=== PATIENT | female | born 1965 | race Caucasian/White ===

== ENCOUNTER 2016-08-18 08:00 | Outpatient (CLI) | payer MEDICAID | END 2016-08-18 23:59 | disposition home or self-care (01) | DX: M19.90 Unspecified osteoarthritis, unspecified site (principal) ==

== ENCOUNTER 2016-10-04 11:16 | Outpatient (CLI) | payer MEDICAID | END 2016-10-04 11:17 | disposition home or self-care (01) | DX: K76.0 Fatty (change of) liver, not elsewhere classified (principal); Z90.49 Acquired absence of other specified parts of digestive tract ==

== ENCOUNTER 2016-12-27 11:28 | Outpatient (CLI) | payer MEDICAID ==
[2016-12-27 18:43] LABS: BASOPHILS % (AUTO) 0.3 %; EOSINOPHILS # (AUTO) 0.1 10^3/uL (0.0-0.7); EOSINOPHILS % (AUTO) 1.8 %; HCT - HEMATOCRIT 40.8 % (37.0-47.0); HGB - HEMOGLOBIN 13.9 g/dL (12.0-16.0); LYMPHOCYTES # (AUTO) 3.4 10^3/uL (1.5-3.5); LYMPHOCYTES % (AUTO) 47.6 %; MEAN CORPUSCULAR HEMOGLOBIN 31.9 pg (27.0-31.0); MEAN CORPUSCULAR HGB CONC 34.2 g/dL (32.0-36.0); MEAN CORPUSCULAR VOLUME 93.2 fL (81.0-99.0); MEAN PLATELET VOLUME 8.4 fL (7.9-10.8); MONOCYTES # (AUTO) 0.5 10^3/uL (0.0-1.0); MONOCYTES % (AUTO) 7.4 %; NEUTROPHILS # (AUTO) 3.1 10^3/uL (1.5-6.6); NEUTROPHILS % (AUTO) 42.9 %; NUCLEATED RED BLOOD CELLS AUTO 0.1 /100WBC; RED BLOOD COUNT 4.37 10^6/uL (4.20-5.40); RED CELL DISTRIBUTION WIDTH 13.3 % (12.0-15.0); UNCORRECTED WHITE BLOOD COUNT 7.2 x10^3/uL; WHITE BLOOD COUNT 7.2 x10^3/uL (4.8-10.8)
[2016-12-27 19:14] LABS: ALBUMIN/GLOBULIN RATIO 1.2 (1.0-2.2); BILIRUBIN,TOTAL 0.4 mg/dL (0.2-1.0); CALCIUM 9.1 mg/dL (8.5-10.3); CREATININE 0.7 mg/dL (0.4-1.0); TOTAL PROTEIN 7.3 g/dL (6.7-8.2)
== END 2016-12-27 11:29 | disposition home or self-care (01) ==
LOC: RT.S 11:28
PROVIDERS: ATTEND Nurse Practitioner Family
DX: M16.11 Unilateral primary osteoarthritis, right hip (principal)
CPT/HCPCS: 36415; 80053; 85025; 87640; 93005

== ENCOUNTER 2017-01-10 05:53 | Inpatient (IN) | payer MEDICAID ==
[2017-01-10] MEDS ORDERED: ceFAZolin 2 GM/50 ML 50 ML IV ONE (06:27)
[2017-01-10] MEDS ORDERED: LACTATED RINGERS 1,000 ML IV ONE ×2 (06:57→12:15)
[2017-01-10] MEDS ORDERED: PROPOFOL 200 MG/20 ML VIAL IVP ONE (08:30)
[2017-01-10] MEDS ORDERED: fentaNYL 100 MCG/2 ML VIAL IVP ONE (08:30)
[2017-01-10] MEDS ORDERED: MORPHINE PF 5 MG/10 ML AMP EP ONE (08:30)
[2017-01-10] MEDS ORDERED: TRANEXAMIC ACID 1,000 MG/10 ML VIAL IV ONE (08:30)
[2017-01-10] MEDS ORDERED: ePHEDrine 50 MG/ML AMP IVP ONE (08:30)
[2017-01-10] MEDS ORDERED: MIDAZOLAM 2 MG/2 ML VIAL IVP ONE (08:30)
[2017-01-10] MEDS ORDERED: LIDOCAINE-MPF 2% 5 ML VIAL IM ONE (08:30)
[2017-01-10] MEDS ORDERED: KETOROLAC 15 MG/ML VIAL IM ONE (08:55)
[2017-01-10] MEDS ORDERED: ROPIVACAINE 0.2% PF 20 ML AMPULE SUBQ ONE (08:55)
[2017-01-10] MEDS ORDERED: EPINEPHrine 1 MG/ML AMP SUBQ ONE (08:56)
[2017-01-10] MEDS ORDERED: MORPHINE PF 5 MG/10 ML AMP SUBQ ONE (08:56)
[2017-01-10] MEDS ORDERED: BUPIVACAINE 0.25%-EPI 1:200000 PF 30 ML VIAL SUBQ ONE ×2 (08:57)
[2017-01-10] MEDS ORDERED: ACETAMINOPHEN 1,000 MG/100 ML 100 ML IV PRN (12:15)
[2017-01-10] MEDS ORDERED: BISACODYL 10 MG SUPP PR PRN (12:15)
[2017-01-10] MEDS ORDERED: diphenhydrAMINE 25 MG CAPSULE PO PRN (12:15)
[2017-01-10] MEDS ORDERED: diphenhydrAMINE INJ 50 MG/ML VIAL IVP PRN (12:15)
[2017-01-10] MEDS ORDERED: BISACODYL 5 MG TABLET PO PRN (12:15)
[2017-01-10] MEDS ORDERED: ACETAMINOPHEN 325 MG TABLET PO PRN (12:15)
[2017-01-10] MEDS ORDERED: PROCHLORPERAZINE 10 MG/2 ML VIAL IVP PRN (12:15)
[2017-01-10] MEDS ORDERED: DOCUSATE SODIUM 100 MG CAPSULE PO PRN (12:15)
[2017-01-10] MEDS ORDERED: ONDANSETRON 4 MG/2 ML VIAL IVP PRN (12:15)
[2017-01-10] MEDS ORDERED: ceFAZolin 2 GM/50 ML 50 ML IV SCH (12:15)
[2017-01-10] MEDS ORDERED: SENNA 8.6 MG TABLET PO PRN (12:15)
[2017-01-10] MEDS ORDERED: FORMOTEROL FUMARATE NEB 20 MCG/2 ML INH PRN (12:22)
[2017-01-10] MEDS ORDERED: ALBUTEROL 8 GM INHALER INH PRN (12:22)
--- NOTE | 2017-01-10 12:31 | OPERATIVE REPORT ---
Operative Report - General Admit Date: 01/10/17 Procedure Date: 01/10/17 Planned Procedure: Right Total Hip Arthroplasty Pre-Op Diagnosis: Right Hip Osteoarthritis Post Op Diagnosis: Same - Procedure Note Primary Surgeon: Dmitry Odell MD Anesthesia Provider: Jaime Mendosa CRNA Anesthesia Technique: Local, Moderate sedation, Spinal Pathology: Same Estimated Blood Loss (in cc): 300 Complications: None. - Other Other Information/Narrative: Fluids: 1600 mL LR Urine: 300 mL. Implants: Yordy TaperLoc Femoral Stem: 12 x 142 mm porous standard offset. Acetabular Cup: 54 mm OD, porous Acetabular Liner UHMWPE 40 mm ID Screws: 4.5 x 25 mm & 4.5 x 20 mm Ceramic Head: 40 mm x -3 mm neck length with Cameron taper collar. Condition: Stable. [facility]
[2017-01-10] MEDS ORDERED: fentaNYL 100 MCG/2 ML VIAL ONE (12:49)
[2017-01-10] MEDS ORDERED: ALBUTEROL NEB 2.5 MG/3 ML INH PRN ×2 (13:32→15:47)
--- NOTE | 2017-01-10 14:09 | XRAY Report ---
TWO VIEW RIGHT HIP: 01/10/2017 CLINICAL INDICATION: Postop. FINDINGS: Frontal and cross-table lateral views of the right hip demonstrate a right hip replacement in place. Subcutaneous gas is seen. There is no evidence of acute fracture or hardware complication. IMPRESSION: EXPECTED POSTOPERATIVE APPEARANCE OF RIGHT HIP REPLACEMENT. JOB #: [id number] EXT JOB #:[id number]
[2017-01-10] MEDS: SODIUM CHLORIDE FLUSH 0.9% 10 ML SYRINGE IVP SCH ×2 (14:20→20:00)
[2017-01-10] MEDS: SODIUM CHLORIDE 0.9% 1,000 ML IV SCH (14:26)
[2017-01-10] MEDS: ceFAZolin 2 GM/50 ML 50 ML IV SCH ×2 (16:31→23:58)
[2017-01-10] MEDS: oxyCOD/ACETAMIN 5 MG/325 MG TABLET PO PRN (16:31)
[2017-01-10] MEDS: KETOROLAC 30 MG/ML VIAL IVP PRN (20:11)
[2017-01-10] MEDS: SODIUM CHLORIDE FLUSH 0.9% 10 ML SYRINGE IVP PRN (20:11)
[2017-01-11] MEDS: SODIUM CHLORIDE 0.9% 1,000 ML IV SCH ×3 (00:10→17:45)
[2017-01-11] MEDS: oxyCOD/ACETAMIN 5 MG/325 MG TABLET PO PRN ×4 (04:20→16:52)
[2017-01-11] MEDS: KETOROLAC 30 MG/ML VIAL IVP PRN ×3 (05:28→18:31)
[2017-01-11] MEDS: SODIUM CHLORIDE FLUSH 0.9% 10 ML SYRINGE IVP SCH ×3 (05:34→20:41)
[2017-01-11] MEDS: PANTOPRAZOLE 40 MG TABLET PO SCH (06:07)
[2017-01-11] MEDS: ENOXAPARIN 40 MG/0.4 ML SYRINGE SUBQ SCH (08:24)
[2017-01-11] MEDS: CETIRIZINE 10 MG TABLET PO SCH (08:24)
[2017-01-11] MEDS: GABAPENTIN 300 MG CAPSULE PO SCH (08:24)
[2017-01-11] MEDS ORDERED: QUEtiapine 100 MG TABLET PO SCH (09:00)
[2017-01-11 12:31] LABS: BASOPHILS # (AUTO) 0.1 10^3/uL (0.0-0.1); BASOPHILS % (AUTO) 0.5 %; EOSINOPHILS % (AUTO) 0.4 %; HCT - HEMATOCRIT 31.4 % (37.0-47.0); HGB - HEMOGLOBIN 10.9 g/dL (12.0-16.0); LYMPHOCYTES # (AUTO) 2.3 10^3/uL (1.5-3.5); LYMPHOCYTES % (AUTO) 21.7 %; MEAN CORPUSCULAR HEMOGLOBIN 31.5 pg (27.0-31.0); MEAN CORPUSCULAR HGB CONC 34.7 g/dL (32.0-36.0); MEAN CORPUSCULAR VOLUME 90.6 fL (81.0-99.0); MEAN PLATELET VOLUME 7.6 fL (7.9-10.8); MONOCYTES # (AUTO) 0.8 10^3/uL (0.0-1.0); MONOCYTES % (AUTO) 7.1 %; NEUTROPHILS # (AUTO) 7.5 10^3/uL (1.5-6.6); NEUTROPHILS % (AUTO) 70.3 %; RED BLOOD COUNT 3.46 10^6/uL (4.20-5.40); UNCORRECTED WHITE BLOOD COUNT 10.7 x10^3/uL; WHITE BLOOD COUNT 10.7 x10^3/uL (4.8-10.8)
[2017-01-11] MEDS: HYDROmorphone 1 MG/ML SYRINGE IVP PRN ×2 (18:31→20:40)
[2017-01-11] MEDS ORDERED: oxyCOD/ACETAMIN 5 MG/325 MG TABLET PO SCH ×2 (20:00→21:05)
[2017-01-11] MEDS: QUEtiapine 100 MG TABLET PO SCH (21:00)
[2017-01-12] MEDS: KETOROLAC 30 MG/ML VIAL IVP PRN ×4 (00:39→21:44)
[2017-01-12] MEDS: SODIUM CHLORIDE FLUSH 0.9% 10 ML SYRINGE IVP PRN ×2 (00:40→07:00)
[2017-01-12] MEDS: HYDROmorphone 1 MG/ML SYRINGE IVP PRN (05:20)
[2017-01-12] MEDS: SODIUM CHLORIDE 0.9% 1,000 ML IV SCH ×2 (05:21→13:36)
[2017-01-12] MEDS: SODIUM CHLORIDE FLUSH 0.9% 10 ML SYRINGE IVP SCH ×3 (05:21→20:19)
[2017-01-12] MEDS: PANTOPRAZOLE 40 MG TABLET PO SCH (07:04)
[2017-01-12] MEDS: CETIRIZINE 10 MG TABLET PO SCH (08:57)
[2017-01-12] MEDS: GABAPENTIN 300 MG CAPSULE PO SCH (08:57)
[2017-01-12] MEDS: ENOXAPARIN 40 MG/0.4 ML SYRINGE SUBQ SCH (08:57)
[2017-01-12] MEDS: oxyCOD/ACETAMIN 5 MG/325 MG TABLET PO PRN ×3 (08:57→20:06)
[2017-01-12] MEDS: QUEtiapine 100 MG TABLET PO SCH (20:06)
[2017-01-13] MEDS: oxyCOD/ACETAMIN 5 MG/325 MG TABLET PO PRN ×4 (00:05→16:12)
[2017-01-13] MEDS: SODIUM CHLORIDE 0.9% 1,000 ML IV SCH ×2 (01:15→13:05)
[2017-01-13] MEDS: KETOROLAC 30 MG/ML VIAL IVP PRN ×3 (03:46→20:43)
[2017-01-13] MEDS: PANTOPRAZOLE 40 MG TABLET PO SCH (06:38)
[2017-01-13] MEDS: SODIUM CHLORIDE FLUSH 0.9% 10 ML SYRINGE IVP SCH ×3 (06:38→20:43)
[2017-01-13] MEDS: CETIRIZINE 10 MG TABLET PO SCH (09:00)
[2017-01-13] MEDS: ENOXAPARIN 40 MG/0.4 ML SYRINGE SUBQ SCH (09:00)
[2017-01-13] MEDS: GABAPENTIN 300 MG CAPSULE PO SCH (09:01)
[2017-01-13] MEDS: SODIUM CHLORIDE FLUSH 0.9% 10 ML SYRINGE IVP PRN (13:28)
--- NOTE | 2017-01-13 16:20 | Discharge Plan ---
Discharge Plan Disposition: 03 SNF DC/Xfer Condition: Good Prescriptions: Bisacodyl [Dulcolax] 10 mg PO Q12H PRN #10 tablet PRN Reason: Constipation Bisacodyl Supp [Dulcolax Supp] [address] Q12H PRN #5 supp PRN Reason: Constipation Enoxaparin [Lovenox] 40 mg SUBQ DAILY #28 syringe Diet: Regular Activity Restrictions: Wt Bearing as Tolerated Shower Restrictions: No Driving Restrictions: Yes Assistance Devices: Walker, Other (Gait Belt.) Weight Bearing: Full Weight No Smoking: If you smoke, Please STOP! Call for help. Follow-up with: Sofia Burkett ARNP [Primary Care Provider] - Dmitry Odell MD [Provider Admit Priv/Credential] -
[2017-01-13] MEDS: QUEtiapine 100 MG TABLET PO SCH (20:43)
[2017-01-14] MEDS: oxyCOD/ACETAMIN 5 MG/325 MG TABLET PO PRN ×3 (02:11→11:31)
[2017-01-14] MEDS: PANTOPRAZOLE 40 MG TABLET PO SCH (07:01)
[2017-01-14] MEDS: SODIUM CHLORIDE FLUSH 0.9% 10 ML SYRINGE IVP SCH ×2 (07:01→15:41)
[2017-01-14] MEDS ORDERED: DOCUSATE SODIUM 250 MG CAPSULE PO SCH (09:00)
[2017-01-14] MEDS ORDERED: SENNA 8.6 MG TABLET PO SCH (09:00)
[2017-01-14] MEDS: ENOXAPARIN 40 MG/0.4 ML SYRINGE SUBQ SCH (09:08)
[2017-01-14] MEDS: CETIRIZINE 10 MG TABLET PO SCH (09:09)
[2017-01-14] MEDS: GABAPENTIN 300 MG CAPSULE PO SCH (09:09)
[2017-01-14 15:38] VITALS: BP 138/69
--- NOTE | 2017-02-27 15:51 | DISCHARGE SUMMARY ---
DATE OF ADMISSION: 01/10/2017 DATE OF DISCHARGE: 01/14/2017 FINAL DIAGNOSES 1. Status post right total hip arthroplasty. 2. Aftercare following joint replacement surgery. 3. Asthma. 4. Chronic back pain. 5. Osteoarthritis of both knees. 6. Morbid obesity. 7. Pulmonary embolism. PROCEDURE: Right total hip arthroplasty via an anterolateral approach on 01/10/2017 without complicat ion. HISTORY OF PRESENT ILLNESS: This is a morbidly obese 51-year-old female with multiple medical problem s and history of chronic osteoarthritis in her right hip and bilateral knees, who despite conservativ e measures of activity modification, ambulatory aid to her left hand, exercise and physical therapy, as well as [id number] nonsteroidal antiinflammatory medications and acetaminophen has been unab le to control the pain in her right hip and presented for right total hip arthroplasty. She was told prior to surgery that because of her past history of asthma and morbid obesity, she would need to los e a significant amount of weight. She succeeded in losing 68 pounds and was now deemed suitable for [facility] with her agreement that she is going to continue efforts at weight loss. LABORATORY DATA: CBC on 01/11/2017 showed a white blood cell count of 10.7, hemoglobin of 10.9, hemat ocrit 31.4, platelet count of 210,000, neutrophils 7.5, lymphocytes 2.3, monocytes 0.8, eosinophils 0 .0 and basophils 0.1. HOSPITAL COURSE: The patient underwent a right total hip arthroplasty on 01/10/2017. Her postoperativ e course was somewhat slow with physical therapy, but she was able to get up with a walker and the as sistance of an ambulation belt. However, on postoperative day 3, she was noted to have increasing dif ficulty with oxygenation with saturations dropping to 93% on room air and an acute tachycardia of [address] was performed of the chest on 01/14/2017 and noted pulmonary emboli in the right lower lobe pu lmonary artery with left upper lobe segmental arteries and left lower lobe segmental artery with poss ible emboli in the right upper lobe as well. The patient was, therefore, started on anticoagulation t herapy and subsequently discharged in stable condition to [facility]. DISCHARGE MEDICATIONS 1. Gabapentin 300 mg capsule 2 capsules p.o. daily. 2. Salmeterol xinafoate 50 mcg 1 puff daily. 3. Albuterol sulfate 8.5 g 1 puff inhaled daily. 4. Quetiapine 100 mg tablet 3 tablets p.o. daily. 5. Omeprazole 20 mg capsule 1 p.o. daily. 6. Cetirizine 10 mg tablet p.o. daily. 7. Hydrocodone/acetaminophen 5/325 mg 1 to 2 tablets p.o. q.6 h. p.r.n. pain, #20, no refills. 8. Acetaminophen 325 mg tablets 2 to 3 tablets p.o. q.4 h. p.r.n. pain. 9. Albuterol 2.5 mg per 3 mL nebulizer inhaled daily. 10. Dulcolax 5 mg 2 tablets p.o. b.i.d. 11. Dulcolax suppositories 10 mg MD b.i.d. p.r.n. constipation. 12. Enoxaparin 40 mg subcutaneously daily. DISCHARGE INSTRUCTIONS: The patient is discharged on a regular diet with weightbearing as tolerated t o the right lower extremity with a walker. She is discharged to [facility] t o be followed up in the orthopedic surgery clinic in 2 weeks for a wound check (Dr. Odell ). CODE STATUS: FULL CODE. JOB #: [id number] EXT JOB #:[id number]
--- NOTE | 2017-02-28 09:15 | OPERATIVE REPORT ---
DATE OF SURGERY: 01/10/2017 00:00:00 PREOPERATIVE DIAGNOSIS: Right hip osteoarthritis. POSTOPERATIVE DIAGNOSIS: Right hip osteoarthritis. NAME OF PROCEDURE: Right total hip arthroplasty via an anterolateral approach. SURGEON: Dmitry Odell MD ANESTHESIA: Jaime Mendosa CRNA. Anesthesia technique local with moderate sedation and spinal. PATHOLOGY: same. BLOOD LOSS: 300 mL. COMPLICATIONS: None. FLUIDS: 1600 mL of lactated Ringer's. URINE: 300 mL. IMPLANTS 1. Yordy Taperloc femoral stem 12 x 142 mm porous coating with standard offset. 2. Acetabular cup 54 mm outer diameter porous coated. 3. Acetabular liner ultra high molecular weight polyethylene 40 mm inner diameter. 4. Screws, 4.5 x 25 and 4.5 x 20 mm, 1 each. 5. Ceramic head, 40 mm x 3 mm neck length with Cameron taper collar. CONDITION AT END OF PROCEDURE: Stable. DISPOSITION: PACU then Med/Surg. INDICATIONS: This is an obese 51-year-old female with a longstanding history of progressive pain in h er right hip that has been refractory to activity modification, exercise, cane to the left hand, OTC medications with nonsteroidal antiinflammatory medications and acetaminophen, physical therapy. Despite these measures, she has continued to be bothered by pain, which is preventing her from restin g adequately at night and interfering with activities during the day. We delayed surgical options because of her weight, and I told her that she needed to lose at least 70 pounds before we would consider surgery. She has now lost 68 pounds, and we have elected to go ahead with a right total hip arthroplasty. PROCEDURE IN DETAIL: After consent and identification, the patient was brought to the operating room and placed in the supine position on the operating table. After induction of a spinal anesthetic and appropriate monitoring with IV sedation, the patient was placed in a left lateral decubitus position on the PEG board with well-padded posts of the ischium, the sacrum, the pubic symphysis and the chest . An axillary roll was placed in the left axilla. Padding was placed under the left peroneal nerve. The right lower extremity was then prepped and draped free in the usual hindquarter fashion for total hip arthroplasty. After an appropriate timeout was conducted, we performed a standard anterolateral approach to the hip , taking down a digastric cuff of the anterior third of the gluteus medius muscle and gluteus minimus muscle off of the superior hip capsule, along with the anterior portion of the vastus lateralis. Thi s digastric sleeve was reflected anteriorly. We exposed the hip capsule and made an H-shaped capsulot su to expose the hip joint. With the assistance of a corkscrew in the femoral head, we externally rotated and dislocated the righ t hip. We then made a femoral neck cut approximately 1 fingerbreadth above the lesser trochanter (1 t o 1.5 cm). The cut was made at a 45 degree angle and completed over the superior neck with an osteoto me. The head and neck were removed from the wound. We cleaned out the acetabulum, including the fovea with a rongeur and curet. Marginal osteophyte and labrum were resected with electrocautery and a rongeur. We then sequentially reamed the acetabulum be ginning with a 46 mm reamer in 1 mm increments up to an outer diameter of 53 mm. We sized the 53 mm c up trial in the acetabulum and noted good suction fit. We took the reamings from the 52 mm reamer and the 53 mm reamer, put this in the acetabulum and placed the 53 mm reamer on reverse to impact the ca ncellous bone into the acetabulum. We then impacted a 54 mm outer diameter porous coated acetabular s hell into the acetabulum at 45 degrees of coverage and approximately 10-15 degrees of anteversion. Go od impaction was achieved. Because of her size, we elected to place 2 each screws into the acetabular cup measuring 4.5 x 25 mm and 4.5 x 20 mm respectively. We had good, solid fixation of the acetabula r shell. We then irrigated the shell and placed an acetabular liner of ultra high molecular weight po lyethylene measuring 40 mm in inner diameter. Good seating was noted. We protected the acetabular ranulfo er with a lap sponge. With the leg externally rotated to approximately 90 degrees and the hip flexed to approximately 45 degrees with the leg hanging off the opposite side of the table. We used a army helicopter pilot reamer to sound the femoral canal. We used a lateralizing reamer to achieve a good lateral position a mark carreon cutter to complete our lateralization. We then sequentially broached the femur, starting with a size 1 broach, increasing in 1 mm increments up to a size 12 femoral broach. The 12 x 142 mm broach gave excellent rotational stability. We trial ed off of this broach and noted that a 0 neck length was slightly too tight in terms of shuck test an d flexion at the knee. We changed to a -3 mm neck length, which gave us excellent stability in all pl anes, as well as a good shuck test. The broach and trials were removed from the femoral canal. We then inserted and impacted a 12 x 142 m m porous coated Taperloc standard offset femoral stem into the femur. We impacted a ceramic 40 mm out er diameter head with the -3 mm neck length onto the trunnion of the femoral component. We irrigated the hip thoroughly. We then injected our 60 mL cocktail of bupivacaine, Toradol and morphine derivati ve into the surrounding hip capsule. We then reduced the hip and tested our range of motion and noted good results. The hip was then sequentially closed by repairing the capsulotomy with a running #5 Et hibond suture. We next closed the digastric sleeve through drill holes in the greater trochanter with #2 FiberWire suture and oversewed this with a #2 FiberWire suture onto the fascia of the muscles. Th e iliotibial band was then closed with a running #1 Vicryl suture. We elected not to use a drain. Int errupted 2-0 Vicryl sutures were then placed to the subcuticular layer, followed by a running interlo cked 3-0 Monocryl suture to the dermal layer. A sterile silver Mepilex dressing was applied over the wound. On completion of the procedure, the patient was extubated and transferred to the recovery room in goo d condition having tolerated the procedure well. Postoperative films were obtained in the recovery room, which showed good position of the femoral and acetabular components. JOB #: [id number] EXT JOB #:[id number]
== END 2017-01-14 15:45 | DRG 470 ==
LOC: MS2 05:53
PROVIDERS: ADMIT Orthopaedic Surgery; ATTEND Orthopaedic Surgery
PROC: 0SR902Z Replacement of Right Hip Joint with Metal on Polyethylene Synthetic Substitute, Open Approach (ICD-10-PCS; principal; 2017-01-10 07:30)
DX: M16.11 Unilateral primary osteoarthritis, right hip (principal); Z68.41 Body mass index [BMI] 40.0-44.9, adult; M70.61 Trochanteric bursitis, right hip; G89.29 Other chronic pain; M17.0 Bilateral primary osteoarthritis of knee; F17.211 Nicotine dependence, cigarettes, in remission; E66.01 Morbid (severe) obesity due to excess calories; G47.33 Obstructive sleep apnea (adult) (pediatric); J84.10 Pulmonary fibrosis, unspecified; B18.2 Chronic viral hepatitis C; K21.9 Gastro-esophageal reflux disease without esophagitis; E78.5 Hyperlipidemia, unspecified; F31.9 Bipolar disorder, unspecified; F41.9 Anxiety disorder, unspecified; J45.909 Unspecified asthma, uncomplicated; M54.9 Dorsalgia, unspecified; Z86.19 Personal history of other infectious and parasitic diseases; Z87.898 Personal history of other specified conditions; Z79.891 Long term (current) use of opiate analgesic
CPT/HCPCS: 85025; 86850; 86900; 86901; 94640

== ENCOUNTER 2017-02-13 15:53 | Inpatient (IN) | payer MEDICAID ==
--- NOTE | 2017-02-13 16:20 | ED Physician Documentation ---
PD HPI WOUND RECHECK - Stated complaint Stated Complaint: SURG WOUND LEAKAGE - Chief complaint Chief Complaint: Wound - Histroy obtained from History obtained from: Patient - History of Present Illness Location: Other (She had a right total hip replacement done a little over a month ago. It sounds like in the correction she did have some trouble with a seroma leaking but that got better but starting yesterday she has had a lot of drainage from the wound again. She had some chills last night but no fevers.) Review of Systems Ten Systems: 10 systems reviewed and negative Constitutional: reports: Chills. denies: Fever, Myalgias Cardiac: reports: Reviewed and negative Respiratory: reports: Reviewed and negative GI: reports: Reviewed and negative PD PAST MEDICAL HISTORY - Past Medical History Cardiovascular: None Respiratory: Asthma, Sleep apnea Neuro: Headache/migraine Endocrine/Autoimmune: None GI: GERD, Hepatitis : None HEENT: None Psych: Anxiety, Bipolar disorder Musculoskeletal: Osteoarthritis, Chronic back pain, Other Derm: None - Past Surgical History Past Surgical History: Yes General: Cholecystectomy, Appendectomy Ortho: Other HEENT: Tonsil/Adenoidectomy - Present Medications Home Medications: Ambulatory Orders Medication Instructions Recorded Confirmed Gabapentin 600 mg ORAL DAILY 05/04/14 01/10/17 Albuterol Sulfate [Proair Hfa 1 puffs INH DAILY PRN 03/01/15 01/10/17 Inhaler] QUEtiapine [SEROquel] 300 mg PO DAILY 03/01/15 01/10/17 Salmeterol Xinafoate [Serevent 1 puffs INH DAILY PRN 03/01/15 01/10/17 Diskus] Cetirizine [ZyrTEC] 10 mg PO DAILY 04/03/15 01/10/17 Omeprazole [PriLOSEC] 20 mg PO DAILY 04/03/15 01/10/17 Hydrocodone/Acetaminophen 1 - 2 each PO Q6H PRN #20 tablet 05/17/15 01/10/17 [Hydrocodon-Acetaminophen 5-325] Acetaminophen [Tylenol] 650 - 975 mg PO Q4HR PRN #0 tablet 01/13/17 Albuterol 2.5 mg INH RTDAILY PRN #0 neb 01/13/17 Bisacodyl Supp [Dulcolax Supp] 10 mg MD Q12H PRN #5 supp 01/13/17 Bisacodyl [Dulcolax] 10 mg PO Q12H PRN #10 tablet 01/13/17 Enoxaparin [Lovenox] 40 mg SUBQ DAILY #28 syringe 01/13/17 - Allergies Allergies/Adverse Reactions: Allergies Allergy/AdvReac Type Severity Reaction Status Date / Time Penicillins Allergy Intermediate Edema Verified 02/13/17 16:05 aspirin AdvReac Intermediate Rash Verified 02/13/17 16:05 - Social History Does the pt smoke?: Yes Smoking Status: Current every day smoker Does the pt drink ETOH?: No Does the pt have substance abuse?: No - Family History Family history: reports: Non contributory - Immunizations Immunizations are current?: Yes Immunizations: TDAP >10years/unknown - POLST Patient has POLST: No PD ED PE NORMAL - Vitals Vital signs reviewed: Yes - General General: Alert and oriented X 3, No acute distress - HEENT HEENT: PERRL, EOMI - Neck Neck: Supple, no meningeal sign, No bony TTP - Cardiac Cardiac: RRR, No murmur - Respiratory Respiratory: No respiratory distress, Clear bilaterally - Abdomen Abdomen: Soft, Non tender - Back Back: No CVA TTP, No spinal TTP - Derm Derm: Normal color, Warm and dry - Extremities Extremities: Other (The lateral incision over the right hip is clean dry and intact except for a very small open area about two [address] down the incision that is leaking brownish serous fluid. There is no cellulitis or warmth. No pain with ranging of the hip.) - Neuro Neuro: Alert and oriented X 3, Normal speech - Psych Psych: Normal mood, Normal affect Results - Vitals Vitals: Vital Signs - 24 hr 02/13/17 16:05 Temperature 36.9 C Heart Rate 90 Respiratory 20 Rate Blood Pressure 107/75 O2 Saturation 96 Oxygen O2 Source Room air - Labs Labs: Laboratory Tests 02/13/17 02/13/17 02/13/17 16:31 16:31 16:31 WBC 13.7 H RBC 3.79 L Hgb 11.5 L Hct 33.9 L MCV 89.3 MCH 30.4 MCHC 34.0 RDW 13.7 Plt Count 226 MPV 7.0 L Neut # 11.2 H Lymph # 1.5 [place] # 0.9 Eos # 0.0 Baso # 0.1 Absolute Nucleated RBC 0.01 Nucleated RBCs 0.0 ESR 77 H Sodium 134 L Potassium 3.2 L Chloride 98 L Carbon Dioxide 25 Anion Gap 11.0 BUN 14 Creatinine 0.7 Estimated GFR (MDRD) 88 L Glucose 123 H Calcium 9.0 C-Reactive Protein 16.1 H - Rads (name of study) R hip XR Radiology: EMP read contemporaneously (Prosthesis is okay, there is documented subcutaneous gas but this was after the wound was probed by the orthopedic marketing sales consultant so this likely represents sequela of that as opposed to a necrotizing infection.) PD MEDICAL DECISION MAKING - ED course ED course: 51-year-old woman a little over a month out from hip replacement presents with increased drainage and some symptoms concerning for infection. Her labs are not reassuring with an elevated white count, sed rate, and CRP. I called Dr. Sutherland, the on-call orthopedist and he will see her in the ER, we spoke at approximately 5:[address] Sutherland saw her in the department, probed the wound and evidently it probes quite far which he was very concerned with, he also spoke with Dr. Odell by phone. Plan to admit her for further evaluation and treatment, possible OR. No abx for now per Dr Sutherland Departure - Departure Disposition: 66 [facility] DC/Xfer Clinical Impression: Infected seroma, postoperative Aftercare following joint replacement surgery Qualifiers: Joint replacement surgery site: hip Laterality: right Qualified Code(s): Z47.1 - Aftercare following joint replacement surgery Condition: Stable Discharge Date/Time: 02/13/17 19:15
[2017-02-13] MEDS ORDERED: SODIUM CHLORIDE FLUSH 0.9% 10 ML SYRINGE IVP ONE (16:25)
[2017-02-13 16:42] LABS: BASOPHILS # (AUTO) 0.1 10^3/uL (0.0-0.1); BASOPHILS % (AUTO) 0.6 %; HCT - HEMATOCRIT 33.9 % (37.0-47.0); HGB - HEMOGLOBIN 11.5 g/dL (12.0-16.0); LYMPHOCYTES # (AUTO) 1.5 10^3/uL (1.5-3.5); LYMPHOCYTES % (AUTO) 11.1 %; MEAN CORPUSCULAR HEMOGLOBIN 30.4 pg (27.0-31.0); MEAN CORPUSCULAR VOLUME 89.3 fL (81.0-99.0); MONOCYTES # (AUTO) 0.9 10^3/uL (0.0-1.0); MONOCYTES % (AUTO) 6.6 %; NEUTROPHILS # (AUTO) 11.2 10^3/uL (1.5-6.6); NEUTROPHILS % (AUTO) 81.7 %; RED BLOOD COUNT 3.79 10^6/uL (4.20-5.40); RED CELL DISTRIBUTION WIDTH 13.7 % (12.0-15.0); UNCORRECTED WHITE BLOOD COUNT 13.7 x10^3/uL; WHITE BLOOD COUNT 13.7 x10^3/uL (4.8-10.8)
[2017-02-13 16:59] LABS: CREATININE 0.7 mg/dL (0.4-1.0); POTASSIUM 3.2 mmol/L (3.5-5.0)
[2017-02-13] MEDS ORDERED: HYDROmorphone 1 MG/ML SYRINGE IVP STA (17:06)
[2017-02-13] MEDS ORDERED: HYDROmorphone 1 MG/ML SYRINGE ONE (17:11)
--- NOTE | 2017-02-13 18:28 | PROVIDER PROGRESS NOTE ---
Subjective - Prog Note Date Prog Note Date: 02/13/17 Prog Note Time: 18:14 - Subjective Subjective: Has noted copious serous drainage coming from the distal portion of incision x 2 days. Had previously had small drainage that had cleared up as of last week. Has felt warm and had shaking chills last PM. Objective - Vital Signs/Intake & Output Vital Signs: Vital Signs x48h Temp Pulse Resp BP Pulse Ox 02/13/17 16:05 36.9 C 90 20 107/75 96 - Lab Results Fish Bones: 02/13/17 16:31 02/13/17 16:31 Other Labs: Lab Results x24hrs 02/13/17 02/13/17 02/13/17 Range/Units 16:31 16:31 16:31 WBC 13.7 H (4.8-10.8) x10^3/uL RBC 3.79 L (4.20-5.40) 10^6/uL Hgb 11.5 L (12.0-16.0) g/dL Hct 33.9 L (37.0-47.0) % MCV 89.3 (81.0-99.0) fL MCH 30.4 (27.0-31.0) pg MCHC 34.0 (32.0-36.0) g/dL RDW 13.7 (12.0-15.0) % Plt Count 226 (130-450) 10^3/uL MPV 7.0 L (7.9-10.8) fL Neut # 11.2 H (1.5-6.6) 10^3/uL Lymph # 1.5 (1.5-3.5) 10^3/uL [place] # 0.9 (0.0-1.0) 10^3/uL Eos # 0.0 (0.0-0.7) 10^3/uL Baso # 0.1 (0.0-0.1) 10^3/uL Absolute Nucleated RBC 0.01 x10^3/uL Nucleated RBCs 0.0 /100WBC ESR 77 H (0-30) mm/Hr Sodium 134 L (135-145) mmol/L Potassium 3.2 L (3.5-5.0) mmol/L Chloride 98 L (101-111) mmol/L Carbon Dioxide 25 (21-32) mmol/L Anion Gap 11.0 (6-13) BUN 14 (6-20) mg/dL Creatinine 0.7 (0.4-1.0) mg/dL Estimated GFR (MDRD) 88 L (>89) Glucose 123 H (70-100) mg/dL Calcium 9.0 (8.5-10.3) mg/dL C-Reactive Protein 16.1 H (0-1.0) mg/dL - Other Results/Comments Other Results/Comments: EXAM: Marked erythema about surgical wound of left lateral hip. Moderate serous drainage oozing out of one cm opening in distal incision After betadine skin prep, able to probe with a sterile Q-tip 8 inches deep into wound. N/V ok distally Assessment/Plan - Problem List (1) Aftercare following joint replacement surgery Impression: Possible persistent seroma vs deep infection - one month post right THR PLAN: Sample of deep drainage obtained and sent to microbiology for C&S. Will admit for I&D of right hip on when Dr. Odell has returned. Qualifiers: Joint replacement surgery site: hip Laterality: right Qualified Code(s): Z47.1 - Aftercare following joint replacement surgery; Z96.641 - Presence of right artificial hip joint
[2017-02-13] MEDS ORDERED: SODIUM CHLORIDE FLUSH 0.9% 10 ML SYRINGE IVP PRN ×4 (18:34→19:22)
[2017-02-13] MEDS ORDERED: POTASSIUM BICARB 25 MEQ TABLET PO STA (18:42)
[2017-02-13] MEDS ORDERED: ALBUTEROL SULFATE INH PRN ×2 (18:45→19:22)
[2017-02-13] MEDS ORDERED: HYDROcod/ACET 5/325 Prepack 6 PO PRN (18:45)
[2017-02-13] MEDS ORDERED: SALMETEROL XINAFOATE INH PRN ×2 (18:45→19:22)
[2017-02-13] MEDS ORDERED: ACETAMINOPHEN 325 MG TABLET PO PRN ×2 (18:45→19:22)
[2017-02-13] MEDS ORDERED: ALBUTEROL NEB 2.5 MG/3 ML INH PRN ×2 (18:45→19:22)
[2017-02-13] MEDS ORDERED: BISACODYL 5 MG TABLET PO PRN ×2 (18:45→19:22)
[2017-02-13] MEDS ORDERED: BISACODYL 10 MG SUPP PR PRN ×2 (18:45→19:22)
[2017-02-13] MEDS ORDERED: POTASSIUM BICARB 25 MEQ TABLET PO ONE (18:50)
[2017-02-13] MEDS ORDERED: DEXTROSE 5%-0.45% NACL 1,000 ML IV ONE ×2 (18:51→20:00)
--- NOTE | 2017-02-13 19:10 | XRAY Preliminary Report ---
Exam: XR Hip w/Pelvis 2-3V RT IMPRESSION: Right hip replacement in place. Soft tissue swelling and subcutaneous gas laterally. [facility] SITE ID: [id number]
--- NOTE | 2017-02-13 19:12 | XRAY Report ---
EXAM: RIGHT HIP AND PELVIS RADIOGRAPHY EXAM DATE: 02/13/2017 06:48 PM. HISTORY: Post op infection. COMPARISONS: 01/27/2016. TECHNIQUE: 1 view of the pelvis and 1 view of the hip. FINDINGS: Bones: A right hip replacement is in place. No acute fracture is seen. Joints: Mild left hip osteoarthritis. The sacroiliac joints appear unremarkable. Soft Tissues: Right lateral soft tissue swelling with subcutaneous gas. IMPRESSION: Right hip replacement in place. Soft tissue swelling and subcutaneous gas laterally. [facility] Referring Provider Line: [phone] SITE ID: [id number]
[2017-02-13] MEDS ORDERED: NS W/20 MEQ KCL 1,000 ML IV SCH (20:00)
[2017-02-13] MEDS ORDERED: D5.45NS W/20 MEQ KCL 1,000 ML IV ONE (20:00)
[2017-02-13] MEDS: NS W/20 MEQ KCL 1,000 ML IV SCH (21:21)
[2017-02-13] MEDS: oxyCODONE 5 MG TABLET PO PRN (21:21)
[2017-02-13] MEDS: SODIUM CHLORIDE FLUSH 0.9% 10 ML SYRINGE IVP SCH ×2 (21:22→22:59)
--- NOTE | 2017-02-13 21:33 | HISTORY & PHYSICAL EXAMINATION ---
DATE OF ADMISSION: 02/13/2017 CHIEF COMPLAINT: "My right hip wound has been draining." HISTORY OF PRESENT ILLNESS: The patient is a 51-year-old obese woman, a patient of Dr. Florin Odell, who 1 month ago underwent a right total hip replacement surgery. Postoperatively her care has been complicated by what appeared to be a superficial seroma that resulted in some serous drainage coming from her wound in the immediate postoperative period. On clinic visit last week, however, her drainage has subsided, and there was no obvious collection of fluid/seroma noted at her hip wound. Over the past 2 days, however, the patient has noted her wound reopening, and copious amounts of serous fluid has been draining from her distal incision site. She also notes that she has had some shaking chills last evening and has felt warm, though her temperature has not been taken. She presented to the emergency room and is subsequently being admitted for surgical debridement of her wound. PAST MEDICAL HISTORY Chronic illnesses: 1. Morbid obesity. 2. Osteoarthritis of both knees. 3. Status post right hip total hip arthroplasty - 01/10/2017. 4. History of sciatica. 5. History of smoking. 6. Chronic back pain. CURRENT MEDICATIONS Include: 1. Seroquel 300 mg p.o. daily. 2. Hydrocodone/ acetaminophen 5/325 at 1-2 tablets every 6 hours as needed for pain. 3. Gabapentin 600 mg p.o. daily. 4. Zyrtec 10 mg p.o. daily. 5. Albuterol inhaler 1 puff daily as needed. ALLERGIES 1. PENICILLINS. 2. ASPIRIN. REVIEW OF SYSTEMS: Noncontributory. PHYSICAL EXAMINATION GENERAL: An obese woman lying in the stretcher in a mild amount of distress. VITAL SIGNS: BP 107/75, pulse 90, respirations 20, temperature 36.9 degrees centigrade. HEENT: Normocephalic. PERRLA, EOMs full. Vision and hearing grossly intact and symmetrical. Nose and throat clear. CHEST: Clear. CARDIOVASCULAR: Regular rate and rhythm. S1, S2 heard without murmurs, rubs, or gallops. ABDOMEN: Protuberant, nontender, active bowel sounds noted. EXTREMITIES: Within normal limits except for the right hip area. Surgical wound is healed with the exception of a 1 cm portion in the distal portion of the incision site. After Betadine skin preparation, we were able to probe into the wound about 8 cm deep. Specimen of the drainage was then sent to Microbiology for aerobic and anaerobic cultures and sensitivities and Gram smear. There is surrounding erythema around her surgical wound on the lateral hip. No fluctuance is noted. Minimally tender noted. Able to flex and rotate the hip with minimal pain as well. Neurovascularly she appears to be intact distally in the upper extremity. NEUROLOGIC: Patient alert and oriented x3. Sensory and motor exam grossly intact and symmetrical throughout. ADMISSION LABORATORIES: White count - 13,700. Hematocrit 33.9. ESR 77, C- reactive protein 16.1. STUDIES: X-rays taken of the right hip show no significant interval changes from the total hip replacement surgery x-rays that were done postoperatively in late December. ASSESSMENT 1. Persistent serous drainage from right hip wound - now 1 month status post right total hip replacement. Along with the increased drainage over the last 2 days, she has noted shaking chills ( ) fever. Here in the emergency room, she showed elevated inflammatory markers including elevated white count, sedimentation rate, and CRP. 2. Status post right total hip replacement - 01/10/2017. 3. Obesity. 4. History of smoking. 5. Chronic back pain - on gabapentin. PLAN: Patient will be admitted to the hospital. We will hold on any antibiotics at this point, since we have cultures pending. We will start antibiotics if we have organisms growing from our sample. I have discussed the patient's case with Dr. Florin Odell, her operating surgeon. He is in agreement of proceeding with admission, and proceeding with a surgical incision and drainage of her right hip wound on Tuesday. JOB #: [id number] EXT JOB #:[id number]
[2017-02-13] MEDS ORDERED: SODIUM CHLORIDE FLUSH 0.9% 10 ML SYRINGE IVP SCH ×2 (22:00)
[2017-02-14] MEDS: oxyCODONE 5 MG TABLET PO PRN ×5 (01:38→20:53)
[2017-02-14 02:46] LABS: CALCIUM 8.7 mg/dL (8.5-10.3); CREATININE 0.6 mg/dL (0.4-1.0); POTASSIUM 3.5 mmol/L (3.5-5.0)
[2017-02-14] MEDS: SODIUM CHLORIDE FLUSH 0.9% 10 ML SYRINGE IVP SCH ×4 (06:51→20:54)
[2017-02-14] MEDS ORDERED: IOPAMIDOL-300 100 ML VIAL IVP ONE (07:19)
[2017-02-14] MEDS: NS W/20 MEQ KCL 1,000 ML IV SCH ×2 (07:33→17:05)
[2017-02-14] MEDS: PANTOPRAZOLE 40 MG TABLET PO SCH (07:33)
--- NOTE | 2017-02-14 07:55 | CT Preliminary Report ---
Exam: CT Chest Angio (PE) IMPRESSION: 1. Pulmonary emboli in right lower lobe pulmonary artery, left upper lobe segmental arteries, left lo wer lobe segmental artery. Possible emboli in right upper lobe. [facility] The above findings were discussed with Dr Rodrigues by Dr. Hilary Genao at 07:54 hrs on 02/14/17. SITE ID: [id number]
--- NOTE | 2017-02-14 07:58 | CT Report ---
EXAM: CT ANGIOGRAM CHEST EXAM DATE: 02/14/2017 07:20 AM. CLINICAL HISTORY: Chest pain. COMPARISON: None. TECHNIQUE: Routine helical imaging was performed through the chest in the pulmonary arterial phase. I V Contrast: 80 cc Isovue 300. Reconstructions: Coronal 3-D MIP reconstructions.Sagittal and coronal. In accordance with CT protocol optimization, one or more of the following dose reduction techniques w ere utilized for this exam: automated exposure control, adjustment of mA and/or KV based on patient s ize, or use of iterative reconstructive technique. FINDINGS: Pulmonary Arteries: Diagnostic quality: Adequate through the segmental arteries. Pulmonary emboli in right lower lobe pul monary artery extending into multiple lower lobe segments. Segmental emboli left upper lobe, left low er lobe. Possible emboli right upper lobe segments, RV/LV is within normal limits. There is no interventricular septal bowing. There is no reflux of cont rast material in the IVC. Lungs/Pleura: There is atelectasis in bilateral Lower lobes, right middle lobe, lingula. No nodules , or edema. No effusions or pneumothorax. Mediastinum: Normal. No cardiac enlargement or adenopathy. Thoracic Aorta: Unremarkable. Upper Abdomen: Unremarkable. Other: None. IMPRESSION: 1. Pulmonary emboli in right lower lobe pulmonary artery, left upper lobe segmental arteries, left lo wer lobe segmental artery. Possible emboli in right upper lobe. [facility] The above findings were discussed with Dr Rodrigues by Dr. Hilary Genao at 07:54 hrs on 02/14/17. Referring Provider Line: [phone] SITE ID: [id number]
[2017-02-14] MEDS: HYDROcod/ACETAM 5/325 MG TABLET PO PRN ×3 (08:27→19:51)
[2017-02-14] MEDS: ENOXAPARIN 120 MG/0.8 ML SYRINGE SUBQ SCH ×2 (08:27→20:54)
[2017-02-14] MEDS: QUEtiapine 100 MG TABLET PO SCH (08:27)
[2017-02-14] MEDS: CETIRIZINE 10 MG TABLET PO SCH (08:28)
[2017-02-14] MEDS ORDERED: ALBUTEROL NEB 2.5 MG/3 ML INH PRN ×2 (08:29→21:48)
[2017-02-14] MEDS: ONDANSETRON 4 MG/2 ML VIAL IVP PRN ×2 (08:34→17:05)
[2017-02-14] MEDS ORDERED: FORMOTEROL FUMARATE NEB 20 MCG/2 ML INH SCH (09:00)
[2017-02-14] MEDS ORDERED: QUEtiapine 100 MG TABLET PO SCH ×2 (09:00)
[2017-02-14] MEDS ORDERED: GABAPENTIN 300 MG CAPSULE PO SCH ×2 (09:00)
[2017-02-14] MEDS ORDERED: CETIRIZINE 10 MG TABLET PO SCH (09:00)
[2017-02-14] MEDS ORDERED: NON FORMULARY MED (Omeprazole [Prilosec] 20 MG) PO SCH ×2 (09:00)
--- NOTE | 2017-02-14 11:35 | CONSULTATION NOTE ---
Referring Provider Name of Referring Provider:: MD Ena Consult Date: 02/14/17 Chief Complaint - Chief Complaint Chief Complaint: chest pain in obese pt with h/o THR on 01/10/17, wound infection History of Present Illness - Admitted From Admitted From:: ER - History Obtained From Records Reviewed: [employer] History obtained from: Patient - History of Present Illness HPI Comment/Other: she had an elective total hip replacment in December, developed some mild wound drainage with a seroma while in the SNF in the week after surgery but it resolved. Close to a month later, distal end broke open with drainage. had some chills and she thinks some fever. Came to the ER and seen by Dr. Vegas (ED MD ) and Dr. Sutherland (Ortho MD). Found to have elevated WBC, CRP, ESR but no fever. Dr. Sutherland did a probe and it went in quite far. He didn't want to do abx quite yet and wants to wait on the culture before starting them. Overnight, she developed chest pain.Sudden. At rest. No relief with belch. Nonradiating. Sharp and pleuritic. Troponin neg. EKG neg. O2 sat stayed stable. CTA is positive for PE. Will be started on lovenox. History - Past Medical History Cardiovascular: reports: None Respiratory: reports: Asthma, Sleep apnea Neuro: reports: Headache/migraine Endocrine/Autoimmune: reports: None GI: reports: GERD, Hepatitis : reports: None HEENT: reports: None Psych: reports: Anxiety, Bipolar disorder, Other (chronic opiate use with pain contract) Musculoskeletal: reports: Osteoarthritis (s/p THR December 2016), Chronic back pain , Other Derm: reports: None MRSA Hx?: No - Past Surgical History General: reports: Cholecystectomy, Appendectomy Ortho: reports: Hip replacement, Other HEENT: reports: Tonsil/Adenoidectomy - Family & Social History Living arrangement: At home Living Situation: Alone - Substance History Use: Uses substance without health or social issues: Tobacco, Opioid - POLST Patient has POLST: No Meds/Allgy - Home Medications Home Medications: Ambulatory Orders Medication Instructions Recorded Confirmed Albuterol Sulfate [Proair Hfa 2 puffs INH Q4H PRN 03/01/15 02/14/17 Inhaler] QUEtiapine [SEROquel] 300 mg PO DAILY PM 03/01/15 02/14/17 Salmeterol Xinafoate [Serevent 2 puffs INH BID 03/01/15 02/14/17 Diskus] Cetirizine [ZyrTEC] 10 mg PO DAILY 04/03/15 02/14/17 Omeprazole [PriLOSEC] 20 mg PO DAILY 04/03/15 02/14/17 Hydrocodone/Acetaminophen 1 - 2 each PO Q6H PRN #20 tablet 05/17/15 02/14/17 [Hydrocodon-Acetaminophen 5-325] Acetaminophen [Tylenol] 650 - 975 mg PO Q4HR PRN #0 tablet 01/13/17 02/14/17 Bisacodyl Supp [Dulcolax Supp] 10 mg [place] Q12H PRN #5 supp 01/13/17 02/14/17 Bisacodyl [Dulcolax] 10 mg PO Q12H PRN #10 tablet 01/13/17 02/14/17 Enoxaparin [Lovenox] 40 mg SUBQ DAILY #28 syringe 01/13/17 02/14/17 Gabapentin [Gabapentin] 800 mg PO TID 02/14/17 02/14/17 QUEtiapine [SEROquel] 200 mg PO DAILY 02/14/17 02/14/17 - Allergies Allergies/Adverse Reactions: Allergies Allergy/AdvReac Type Severity Reaction Status Date / Time Penicillins Allergy Intermediate Edema Verified 02/13/17 16:05 aspirin AdvReac Intermediate Rash Verified 02/13/17 16:05 Review of Systems - Constitutional Constitutional: reports: Fatigue Exam - Vital Signs Reviewed Vital Signs: Yes Vital Signs: Vital Signs x48h Temp Pulse Resp BP Pulse Ox 02/14/17 08:58 37.0 C 86 20 135/78 H 96 - Physical Exam General Appearance: positive: No acute distress, Alert, Other (morbindly obese) Eyes Bilateral: positive: PERRL, EOMI Neck: positive: No JVD. negative: Stiff neck Respiratory: positive: No respiratory distress. negative: Wheezes, Rales, Rhonchi Cardiovascular: positive: Regular rate & rhythm. negative: Gallop/S4, Friction rub Peripheral Pulses: positive: 1+ Abdomen: positive: Nml bowel sounds, No distention, Other (hugely obese) Extremities: positive: Pedal edema Neurologic/Psychiatric: positive: Oriented x3, CN's nml (2-12), Motor nml Conclusion/Plan - Diagnosis Diagnosis: Pulmonary embolism. she will be started on Lovenox 120 mg SQ bid. I have discussed the Case with Dr. Sutherland and Benjy Hernandez CRNA. We are a critical access hospital and we do not feel we can take care of her needs which are at a higher level than we can provide because of the intraop and periop risk. i have [facility] and they will call Dr. Sutherland. - Lab Results Fish Bones: 02/13/17 16:31 02/14/17 02:26
--- NOTE | 2017-02-14 11:39 | PROVIDER PROGRESS NOTE ---
Subjective - Prog Note Date Prog Note Date: 02/14/17 Prog Note Time: 11:35 - Subjective Pt reports feeling: Worse (CHest pain last PM) Objective - Vital Signs/Intake & Output Vital Signs: Vital Signs x48h Temp Pulse Resp BP Pulse Ox 02/14/17 08:58 37.0 C 86 20 135/78 H 96 Intake & Output: Intake & Output 02/11/17 02/12/17 02/13/17 02/14/17 23:59 23:59 23:59 23:59 Intake Total 550 1374 Output Total 300 500 Balance 250 874 - Lab Results Fish Bones: 02/13/17 16:31 02/14/17 02:26 Other Labs: Lab Results x24hrs 02/14/17 02/14/17 02/14/17 Range/Units 02:26 02:26 02:26 D-Dimer 818.7 H (200.0-255.0) ng/mL Sodium (135-145) mmol/L Potassium (3.5-5.0) mmol/L Chloride (101-111) mmol/L Carbon Dioxide (21-32) mmol/L Anion Gap (6-13) BUN (6-20) mg/dL Creatinine (0.4-1.0) mg/dL Estimated GFR (MDRD) (>89) Glucose (70-100) mg/dL Calcium (8.5-10.3) mg/dL Troponin I < 0.04 (<0.49) ng/mL Blood Type O POSITIVE Antibody Screen NEGATIVE 02/14/17 Range/Units 02:26 D-Dimer (200.0-255.0) ng/mL Sodium 136 (135-145) mmol/L Potassium 3.5 (3.5-5.0) mmol/L Chloride 101 (101-111) mmol/L Carbon Dioxide 26 (21-32) mmol/L Anion Gap 9.0 (6-13) BUN 12 (6-20) mg/dL Creatinine 0.6 (0.4-1.0) mg/dL Estimated GFR (MDRD) 105 (>89) Glucose 113 H (70-100) mg/dL Calcium 8.7 (8.5-10.3) mg/dL Troponin I (<0.49) ng/mL Blood Type Antibody Screen - Diagnostic Imaging Diagnostic Imaging Comments: CT scan: Multiple pulmonary emboli present in both right and left lung lentz - Other Results/Comments Other Results/Comments: EXAM: No SOB or dyspnea. O2 sat: >90% on room air. Dressing intact over lateral right hip wound. Moving hip with minimal pain. N/V ok distally. Assessment/Plan - Problem List (1) Aftercare following joint replacement surgery Impression: Has developed pulmonary embolism in both lungs by CT scan. Currently on Lovenox PLAN: Discussed with the medical and anesthesia services. Both feel patient is too high a risk to have I&D of right hip and possible THR revision done at [facility]. Will transfer patient to a tertiary care facility in [place] to handle new PE and her current right hip infection. Qualifiers: Joint replacement surgery site: hip Laterality: right Qualified Code(s): Z47.1 - Aftercare following joint replacement surgery; Z96.641 - Presence of right artificial hip joint (2) Pulmonary embolism Qualifiers: Pulmonary embolism type: other Chronicity: acute
[2017-02-14] MEDS: GABAPENTIN 400 MG CAPSULE PO SCH ×2 (15:04→21:00)
[2017-02-15] MEDS: HYDROcod/ACETAM 5/325 MG TABLET PO PRN ×2 (00:18→06:35)
[2017-02-15] MEDS: NS W/20 MEQ KCL 1,000 ML IV SCH (00:18)
[2017-02-15] MEDS: GABAPENTIN 400 MG CAPSULE PO SCH (06:34)
[2017-02-15] MEDS: SODIUM CHLORIDE FLUSH 0.9% 10 ML SYRINGE IVP SCH (06:35)
[2017-02-15] MEDS: PANTOPRAZOLE 40 MG TABLET PO SCH (06:35)
[2017-02-15] MEDS ORDERED: ALBUTEROL NEB 2.5 MG/3 ML INH PRN (07:51)
[2017-02-15] MEDS ORDERED: FORMOTEROL FUMARATE NEB 20 MCG/2 ML INH SCH (08:00)
[2017-02-15] MEDS: CETIRIZINE 10 MG TABLET PO SCH (08:11)
[2017-02-15] MEDS: oxyCODONE 5 MG TABLET PO PRN (08:11)
[2017-02-15] MEDS: ENOXAPARIN 120 MG/0.8 ML SYRINGE SUBQ SCH (08:11)
[2017-02-15 08:21] VITALS: BP 109/62
[2017-02-15] MEDS: QUEtiapine 100 MG TABLET PO SCH (10:24)
--- NOTE | 2017-02-15 10:34 | PROVIDER PROGRESS NOTE ---
Subjective - Prog Note Date Prog Note Date: 02/15/17 Prog Note Time: 10:31 - Subjective Pt reports feeling: No change (About the same with some posterior right hip pain ) Objective - Vital Signs/Intake & Output Vital Signs: Vital Signs x48h Temp Pulse Pulse Resp BP Pulse Ox 02/15/17 08:20 37.1 C 88 16 109/62 95 02/15/17 08:10 86 18 Intake & Output: Intake & Output 02/12/17 02/13/17 02/14/17 02/15/17 23:59 23:59 23:59 23:59 Intake Total 550 4228 951 Output Total 300 800 700 Balance 250 3428 251 - Lab Results Fish Bones: 02/13/17 16:31 02/14/17 02:26 - Other Results/Comments Other Results/Comments: Dressing intact. N/V ok distally. Mild pain with hip motion. Assessment/Plan - Problem List (1) Aftercare following joint replacement surgery Impression: Stable for transfer to [facility] due to medical complications and increased anesthesia risk PLAN: Transfer to [facility] [place] under DR. Anny Armas, hospitalist today Qualifiers: Joint replacement surgery site: hip Laterality: right Qualified Code(s): Z47.1 - Aftercare following joint replacement surgery; Z96.641 - Presence of right artificial hip joint (2) Pulmonary embolism Qualifiers: Pulmonary embolism type: other Chronicity: acute
--- NOTE | 2017-02-15 10:59 | DISCHARGE SUMMARY ---
DATE OF ADMISSION: 02/13/2017 DATE OF DISCHARGE: 02/15/2017 DISCHARGE DIAGNOSES: 1. Probable infected right total hip arthroplasty. 2. Morbid obesity. 3. Pulmonary embolism. 4. History of smoking. HISTORY OF PRESENT ILLNESS: Please see admission note that was dictated on admission. HOSPITAL COURSE: After the patient's admission from the emergency room on 2016, she was noted to have chest pain on the evening of her admission. Had some shortness of breath as well. Workup done after our medical consultation showed troponin levels which were within normal limits and an EKG showing no acute ST or T-wave changes. She had an elevated D-dimer noted on blood draws. Followup CT scan of the chest showed multiple areas consistent with multiple pulmonary embolus involving both the right and left lungs. The patient, however , had vital signs that continued to be stable and her post-saturations on room air were greater than 90%. The patient had no clinical shortness of breath after initial complaint. After discussion with the anesthesia service and medical service the day after admission, it was decided that the patient was too high of a surgical risk to have her surgical procedures performed at [facility]. With this in mind, we did start her with Lovenox for her pulmonary embolus and arrangements were made for her to be transferred to tertiary care in [place] for her surgical procedure. PLAN: Arrangements were made to have the patient transferred to [facility] under the care of Dr. Anny Armas of the hospitalist service at [facility]. Orthopedic consultation will be obtained at [facility] ( ? Dr. Nails). Likely after the patient's condition has been stabilized and the appropriate measures taken due to her increased complexity with the pulmonary embolus, she will likely require surgical irrigation and debridement of her probable infection. Also, an exchange of her polyethylene acetabular cup and insertion of antibiotic impregnated beads along with systemic antibiotics will likely be needed. The surgical choice; however, will be left to the surgeons at [facility] to determine at the time of surgery. JOB #: [id number] EXT JOB #:[id number] MTDD
== END 2017-02-15 10:45 | disposition short-term general hospital (02) | DRG 559 ==
LOC: ED 15:53 → MS2 18:34 → ED 19:15
PROVIDERS: ADMIT Orthopaedic Surgery; ATTEND Orthopaedic Surgery
DX: T84.51XA Infection and inflammatory reaction due to internal right hip prosthesis, initial encounter (principal); I26.99 Other pulmonary embolism without acute cor pulmonale; Z68.41 Body mass index [BMI] 40.0-44.9, adult; Y83.1 Surgical operation with implant of artificial internal device as the cause of abnormal reaction of the patient, or of later complication, without mention of misadventure at the time of the procedure; E66.01 Morbid (severe) obesity due to excess calories; M54.9 Dorsalgia, unspecified; G89.29 Other chronic pain; J45.909 Unspecified asthma, uncomplicated; G47.30 Sleep apnea, unspecified; K21.9 Gastro-esophageal reflux disease without esophagitis; F41.9 Anxiety disorder, unspecified; F31.9 Bipolar disorder, unspecified; F17.200 Nicotine dependence, unspecified, uncomplicated; Z79.891 Long term (current) use of opiate analgesic; Z88.0 Allergy status to penicillin
CPT/HCPCS: 36415; 71275; 80048; 84484; 85025; 85379; 85651; 86140; 86850; 86900; 86901; 87070; 87205; 93041; 94640; 96374; 99282; 99283; 99285

== ENCOUNTER 2017-02-28 14:24 | Outpatient (CLI) | payer MEDICAID ==
[2017-02-28 18:10] LABS: BASOPHILS # (AUTO) 0.1 10^3/uL (0.0-0.1); BASOPHILS % (AUTO) 0.9 %; EOSINOPHILS # (AUTO) 0.2 10^3/uL (0.0-0.7); EOSINOPHILS % (AUTO) 3.1 %; HCT - HEMATOCRIT 27.8 % (37.0-47.0); LYMPHOCYTES # (AUTO) 2.5 10^3/uL (1.5-3.5); LYMPHOCYTES % (AUTO) 38.4 %; MEAN CORPUSCULAR HEMOGLOBIN 29.1 pg (27.0-31.0); MEAN CORPUSCULAR HGB CONC 32.5 g/dL (32.0-36.0); MEAN CORPUSCULAR VOLUME 89.5 fL (81.0-99.0); MEAN PLATELET VOLUME 7.3 fL (7.9-10.8); MONOCYTES # (AUTO) 0.5 10^3/uL (0.0-1.0); MONOCYTES % (AUTO) 7.8 %; NEUTROPHILS # (AUTO) 3.2 10^3/uL (1.5-6.6); NEUTROPHILS % (AUTO) 49.8 %; RED CELL DISTRIBUTION WIDTH 14.3 % (12.0-15.0); UNCORRECTED WHITE BLOOD COUNT 6.4 x10^3/uL; WHITE BLOOD COUNT 6.4 x10^3/uL (4.8-10.8)
[2017-02-28 18:50] LABS: ALBUMIN/GLOBULIN RATIO 0.9 (1.0-2.2); BILIRUBIN,TOTAL 0.3 mg/dL (0.2-1.0); CALCIUM 9.2 mg/dL (8.5-10.3); CREATININE 0.6 mg/dL (0.4-1.0); POTASSIUM 4.4 mmol/L (3.5-5.0); TOTAL PROTEIN 6.9 g/dL (6.7-8.2)
== END 2017-02-28 14:25 | disposition home or self-care (01) ==
LOC: LAB.R 14:24
PROVIDERS: ATTEND Nurse Practitioner Family
DX: I26.99 Other pulmonary embolism without acute cor pulmonale (principal); J18.9 Pneumonia, unspecified organism
CPT/HCPCS: 80053; 85025; 86140

== ENCOUNTER 2017-03-03 12:14 | Outpatient (CLI) | payer MEDICAID ==
--- NOTE | 2017-03-03 13:50 | XRAY Report ---
TWO-VIEW CHEST: 03/03/2017 CLINICAL INDICATION: History of pulmonary embolus, pneumonia. COMPARISON: CT 02/14/2017. FINDINGS: Frontal and lateral views of the chest demonstrate a normal cardiac silhouette. Linear at electasis is present, left greater than right, at the bases. No focal infiltrate, effusion, or pneum othorax is present. IMPRESSION: LINEAR ATELECTASIS AT THE BASES. JOB #: [id number] EXT JOB #:[id number]
== END 2017-03-03 12:15 | disposition home or self-care (01) ==
LOC: DI.N 12:14
PROVIDERS: ATTEND Nurse Practitioner Family
DX: J98.11 Atelectasis (principal)
CPT/HCPCS: 71020

== ENCOUNTER 2017-03-09 09:00 | Outpatient (CLI) | payer MEDICAID ==
[2017-03-09 19:05] LABS: BASOPHILS % (AUTO) 0.8 %; EOSINOPHILS # (AUTO) 0.1 10^3/uL (0.0-0.7); EOSINOPHILS % (AUTO) 2.6 %; HCT - HEMATOCRIT 31.2 % (37.0-47.0); HGB - HEMOGLOBIN 10.1 g/dL (12.0-16.0); LYMPHOCYTES # (AUTO) 2.3 10^3/uL (1.5-3.5); LYMPHOCYTES % (AUTO) 40.3 %; MEAN CORPUSCULAR HEMOGLOBIN 28.1 pg (27.0-31.0); MEAN CORPUSCULAR HGB CONC 32.2 g/dL (32.0-36.0); MEAN CORPUSCULAR VOLUME 87.1 fL (81.0-99.0); MEAN PLATELET VOLUME 7.1 fL (7.9-10.8); MONOCYTES # (AUTO) 0.5 10^3/uL (0.0-1.0); MONOCYTES % (AUTO) 9.3 %; NEUTROPHILS # (AUTO) 2.7 10^3/uL (1.5-6.6); NUCLEATED RED BLOOD CELLS AUTO 0.1 /100WBC; RED BLOOD COUNT 3.58 10^6/uL (4.20-5.40); RED CELL DISTRIBUTION WIDTH 14.6 % (12.0-15.0); UNCORRECTED WHITE BLOOD COUNT 5.7 x10^3/uL; WHITE BLOOD COUNT 5.7 x10^3/uL (4.8-10.8)
[2017-03-12 11:47] LABS: BILIRUBIN,TOTAL 0.5 mg/dL (0.2-1.0); BUN - BLOOD UREA NITROGEN 10 mg/dL (6-20); CALCIUM 9.5 mg/dL (8.5-10.3); CARBON DIOXIDE - CO2 28 mmol/L (21-32); CHLORIDE 103 mmol/L (101-111); CREATININE 0.6 mg/dL (0.4-1.0); GFR - MDRD 105 (>89); GLUCOSE 105 mg/dL (70-100); POTASSIUM 4.1 mmol/L (3.5-5.0); SODIUM 139 mmol/L (135-145)
[2017-03-12 11:48] LABS: ALBUMIN/GLOBULIN RATIO 1.1 (1.0-2.2); TOTAL PROTEIN 7.6 g/dL (6.7-8.2)
== END 2017-03-09 09:01 | disposition home or self-care (01) ==
LOC: LAB.N 09:00
PROVIDERS: ATTEND Internal Medicine
DX: T84.51XA Infection and inflammatory reaction due to internal right hip prosthesis, initial encounter (principal)
CPT/HCPCS: 36415; 80053; 85025; 85651; 86140

== ENCOUNTER 2017-03-26 17:26 | Emergency (ER) | payer MEDICAID ==
[2017-03-26 17:37] VITALS: BP 132/77
--- NOTE | 2017-03-26 17:40 | ED Physician Documentation ---
PD HPI FEMALE - Stated complaint Stated Complaint: FEMALE - Chief complaint Chief Complaint: General - History obtained from History obtained from: Patient - History of Present Illness Timing - onset: Today Timing - details: Abrupt onset Associated symptoms: Dysuria, Urinary frequency. No: Hematuria Contributing factors: No: control, Oral contraceptive Similar symptoms before: Diagnosis (UTI) Review of Systems Constitutional: denies: Fever, Chills, Myalgias Throat: denies: Sore throat Respiratory: denies: Cough GI: reports: Nausea Skin: denies: Rash, Lesions PD PAST MEDICAL HISTORY - Past Medical History Cardiovascular: None Respiratory: Asthma, Sleep apnea Neuro: Headache/migraine Endocrine/Autoimmune: None GI: GERD, Hepatitis : None HEENT: None Psych: Anxiety, Bipolar disorder, Other Musculoskeletal: Osteoarthritis (s/p THR December 2016), Chronic back pain, Other Derm: None - Past Surgical History Past Surgical History: Yes General: Cholecystectomy, Appendectomy Ortho: Hip replacement, Other HEENT: Tonsil/Adenoidectomy - Present Medications Home Medications: Ambulatory Orders Medication Instructions Recorded Confirmed Albuterol Sulfate [Proair Hfa 2 puffs INH Q4H PRN 03/01/15 03/26/17 Inhaler] QUEtiapine [SEROquel] 300 mg PO DAILY PM 03/01/15 03/26/17 Salmeterol Xinafoate [Serevent 2 puffs INH BID 03/01/15 03/26/17 Diskus] Cetirizine [ZyrTEC] 10 mg PO DAILY 04/03/15 03/26/17 Omeprazole [PriLOSEC] 20 mg PO DAILY 04/03/15 03/26/17 Hydrocodone/Acetaminophen 1 - 2 each PO Q6H PRN #20 tablet 05/17/15 03/26/17 [Hydrocodon-Acetaminophen 5-325] Acetaminophen [Tylenol] 650 - 975 mg PO Q4HR PRN #0 tablet 01/13/17 03/26/17 Gabapentin [Gabapentin] 800 mg PO TID 02/14/17 03/26/17 QUEtiapine [SEROquel] 200 mg PO DAILY 02/14/17 03/26/17 Apixaban [Eliquis] 1 tab PO BID 03/26/17 03/26/17 Phenazopyridine HCl 200 mg PO TID PRN #10 tablet 03/26/17 Sulfamethox/Trimeth 800/160 1 each PO BID #10 tablet 03/26/17 [Bactrim Ds 800/160] - Allergies Allergies/Adverse Reactions: Allergies Allergy/AdvReac Type Severity Reaction Status Date / Time Penicillins Allergy Intermediate Edema Verified 03/26/17 17:37 aspirin AdvReac Intermediate Rash Verified 03/26/17 17:37 - Social History Does the pt smoke?: Yes Smoking Status: Current every day smoker Does the pt drink ETOH?: No Does the pt have substance abuse?: No - Immunizations Immunizations are current?: Yes Immunizations: TDAP >10years/unknown - POLST Patient has POLST: No PD ED PE NORMAL - Vitals Vital signs reviewed: Yes - General General: Alert and oriented X 3, No acute distress, Well developed/nourished - Abdomen Abdomen: Soft, Non tender - Back Back: No CVA TTP - Derm Derm: Normal color, Warm and dry - Neuro Neuro: Alert and oriented X 3, No motor deficit, Normal speech Results - Vitals Vitals: Vital Signs - 24 hr 03/26/17 17:32 Temperature 36.4 C L Heart Rate 97 Respiratory 16 Rate Blood Pressure 132/77 H O2 Saturation 99 Oxygen O2 Source Room air - Labs Labs: Laboratory Tests 03/26/17 18:10 Urine Color YELLOW Urine Clarity HAZY Urine pH 5.5 Ur Specific Drexel >=1.030 H Urine Protein TRACE Urine Glucose (UA) NEGATIVE Urine Ketones NEGATIVE Urine Occult Blood SMALL H Urine Nitrite NEGATIVE Urine Bilirubin NEGATIVE Urine Urobilinogen 0.2 (NORMAL) Ur Leukocyte Esterase TRACE H Urine RBC 11-25 H Urine WBC >25 H Ur Squamous Epith Cells MOD Squamous H Urine Bacteria Rare Urine Mucus Few Strands Ur Microscopic Review INDICATED Urine Culture Comments NOT INDICATED PD MEDICAL DECISION MAKING - ED course Complexity details: reviewed results, considered differential, d/w patient Departure - Departure Disposition: 01 Home, Self Care Clinical Impression: Dysuria UTI (urinary tract infection) Qualifiers: Urinary tract infection type: acute cystitis Hematuria presence: without hematuria Qualified Code(s): N30.00 - Acute cystitis without hematuria Condition: Stable Record reviewed to determine appropriate education?: Yes Instructions: ED UTI Cystitis Female Follow-Up: Sofia Burkett ARNP [Primary Care Provider] - Prescriptions: Phenazopyridine HCl 200 mg PO TID PRN #10 tablet PRN Reason: Pain Sulfamethox/Trimeth 800/160 [Bactrim Ds 800/160] 1 each PO BID #10 tablet Comments: Drink lots of fluids. Tylenol if needed for pains. Use phenazopyridine if needed for urinary discomfort. Able to renew urine a little orange colored so not to worry. Bactrim twice daily for 5 days for the infection. Recheck if not improved over the next 2-3 days. Discharge Date/Time: 03/26/17 18:12
[2017-03-26] MEDS ORDERED: ACETAMINOPHEN 325 MG TABLET PO STA (17:47)
[2017-03-26] MEDS ORDERED: SULFAMETH/TRIMETH DS 800/160 MG TABLET PO STA (17:47)
[2017-03-26] MEDS ORDERED: PHENAZOPYRIDINE 100 MG TABLET PO STA (17:47)
[2017-03-26] MEDS ORDERED: ACETAMINOPHEN 325 MG TABLET PO ONE (18:02)
[2017-03-26] MEDS ORDERED: SULFAMETH/TRIMETH DS 800/160 MG TABLET PO ONE (18:02)
[2017-03-26] MEDS ORDERED: PHENAZOPYRIDINE 100 MG TABLET PO ONE (18:03)
[2017-03-26 18:17] LABS: BILIRUBIN,URINE NEGATIVE (NEGATIVE); PH,URINE 5.5 PH (5.0-7.5)
[2017-03-26 18:20] LABS: UA w/ MICROSCOPIC CHARGE YES
[2017-03-26 18:26] LABS: UR CULTURE IF IND NOT INDICATED; WBC,URINE >25 /HPF (0-5)
== END 2017-03-26 18:12 | disposition home or self-care (01) ==
LOC: ED 17:26
DX: N30.00 Acute cystitis without hematuria (principal); F17.200 Nicotine dependence, unspecified, uncomplicated; Z96.649 Presence of unspecified artificial hip joint
CPT/HCPCS: 81001; 99283; A9270; 81003; 87086

== ENCOUNTER 2017-05-26 11:14 | Outpatient (CLI) | payer MEDICAID ==
--- NOTE | 2017-05-27 10:44 | XRAY Report ---
TWO-VIEW CHEST: 05/26/2017 COMPARISON: Two-view chest 03/03/2017. INDICATION: Pulmonary embolism. TECHNIQUE: Two views of the chest. FINDINGS: Bibasilar atelectasis is improved compared to the prior exam. No pneumothorax or pleural effusion. Mediastinum otherwise unremarkable. IMPRESSION: IMPROVED BIBASILAR ATELECTASIS COMPARED TO 03/03/2017. JOB #: [id number] EXT JOB #: [id number] [facility]
== END 2017-05-26 11:15 | disposition home or self-care (01) ==
LOC: DI.N 11:14
PROVIDERS: ATTEND Nurse Practitioner Family
DX: J98.11 Atelectasis (principal)
CPT/HCPCS: 71020

== ENCOUNTER 2017-06-02 08:00 | Outpatient (CLI) | payer MEDICAID ==
[2017-06-02 19:12] LABS: BASOPHILS % (AUTO) 0.6 %; EOSINOPHILS # (AUTO) 0.2 10^3/uL (0.0-0.7); EOSINOPHILS % (AUTO) 2.3 %; HGB - HEMOGLOBIN 12.3 g/dL (12.0-16.0); LYMPHOCYTES % (AUTO) 45.8 %; MEAN CORPUSCULAR HEMOGLOBIN 27.2 pg (27.0-31.0); MEAN CORPUSCULAR HGB CONC 32.4 g/dL (32.0-36.0); MEAN CORPUSCULAR VOLUME 84.1 fL (81.0-99.0); MEAN PLATELET VOLUME 7.9 fL (7.9-10.8); MONOCYTES # (AUTO) 0.5 10^3/uL (0.0-1.0); MONOCYTES % (AUTO) 7.1 %; NEUTROPHILS # (AUTO) 2.9 10^3/uL (1.5-6.6); NEUTROPHILS % (AUTO) 44.2 %; RED BLOOD COUNT 4.52 10^6/uL (4.20-5.40); RED CELL DISTRIBUTION WIDTH 16.3 % (12.0-15.0); UNCORRECTED WHITE BLOOD COUNT 6.6 x10^3/uL; WHITE BLOOD COUNT 6.6 x10^3/uL (4.8-10.8)
[2017-06-02 19:39] LABS: THYROID STIMULATING HORMONE 1.69 uIU/mL (0.34-5.60)
[2017-06-02 19:46] LABS: CREATININE 0.5 mg/dL (0.4-1.0); POTASSIUM 4.2 mmol/L (3.5-5.0)
== END 2017-06-02 08:01 | disposition home or self-care (01) ==
LOC: LAB.N 08:00
PROVIDERS: ATTEND Nurse Practitioner Family
DX: L63.1 Alopecia universalis (principal)
CPT/HCPCS: 36415; 80048; 83930; 84439; 84443; 85025

== ENCOUNTER 2017-06-27 13:38 | Outpatient (CLI) | payer MEDICAID ==
--- NOTE | 2017-06-27 16:11 | XRAY Report ---
DATE OF SERVICE: 06/27/2017 TWO VIEW CHEST: 06/27/2017 CLINICAL INDICATION: History of pulmonary embolus, followup. COMPARISON: 05/26/2017, CT pulmonary angio of 02/14/2017. FINDINGS: Frontal and lateral views of the chest demonstrate a normal cardiac silhouette. Linear sc arring or atelectasis at the bases is stable. No new infiltrate, effusion, or pneumothorax is present. IMPRESSION: STABLE LINEAR SCARRING OR ATELECTASIS AT THE BASES. NO EVIDENCE OF ACUTE CARDIOPULMONARY DISEASE. TD: 06/27/2017 17:06
== END 2017-06-27 13:39 | disposition home or self-care (01) ==
LOC: DI.N 13:38
PROVIDERS: ATTEND Nurse Practitioner Family
DX: I26.99 Other pulmonary embolism without acute cor pulmonale (principal)
CPT/HCPCS: 71046

== ENCOUNTER 2017-06-27 14:52 | Emergency (ER) | payer MEDICAID ==
[2017-06-27 15:26] VITALS: BP 124/71
[2017-06-27 15:39] LABS: BILIRUBIN,URINE NEGATIVE (NEGATIVE); PH,URINE 6.5 PH (5.0-7.5)
[2017-06-27 15:44] LABS: CLARITY,URINE BLOODY (CLEAR)
[2017-06-27 15:46] LABS: BACTERIA,URINE Many /HPF (None Seen); SQUAMOUS EPITHELIAL CELL,UR FEW Squamous (<= Few); WBC CLUMPS,URINE PRESENT
--- NOTE | 2017-06-27 16:16 | ED Physician Documentation ---
PD HPI FEMALE - Stated complaint Stated Complaint: FREQ URINATION - Chief complaint Chief Complaint: UTI - History obtained from History obtained from: Patient - History of Present Illness Timing - onset: Yesterday Timing - duration: Days (2) Timing - details: Gradual onset Pain level max: 0 Pain level max: 0 Associated symptoms: Dysuria, Urinary frequency. No: Fever, Chest/shoulder pain , Abdominal pain, Back pain, Pelvic pain, Vaginal pain, Vaginal bleeding, Vaginal discharge Contributing factors: No: Similar symptoms before: Diagnosis (UTI) Recently seen: Not recently seen Review of Systems Constitutional: denies: Fever, Chills GI: denies: Vomiting Skin: denies: Rash Musculoskeletal: denies: Neck pain, Back pain PD PAST MEDICAL HISTORY - Past Medical History Past Medical History: Yes Cardiovascular: None Respiratory: Asthma, Sleep apnea Neuro: Headache/migraine Endocrine/Autoimmune: None GI: GERD, Hepatitis TIN DIPPER: None : None HEENT: None Psych: Anxiety, Bipolar disorder, Other Musculoskeletal: Osteoarthritis (s/p THR December 2016), Chronic back pain, Other Derm: None - Past Surgical History Past Surgical History: Yes General: Cholecystectomy, Appendectomy Ortho: Hip replacement, Other HEENT: Tonsil/Adenoidectomy - Present Medications Home Medications: Ambulatory Orders Medication Instructions Recorded Confirmed Albuterol Sulfate [Proair Hfa 2 puffs INH Q4H PRN 03/01/15 03/26/17 Inhaler] QUEtiapine [SEROquel] 300 mg PO DAILY PM 03/01/15 03/26/17 Salmeterol Xinafoate [Serevent 2 puffs INH BID 03/01/15 03/26/17 Diskus] Cetirizine [ZyrTEC] 10 mg PO DAILY 04/03/15 03/26/17 Omeprazole [PriLOSEC] 20 mg PO DAILY 04/03/15 03/26/17 Hydrocodone/Acetaminophen 1 - 2 each PO Q6H PRN #20 tablet 05/17/15 03/26/17 [Hydrocodone-Acetamin 5-325 mg] Acetaminophen [Tylenol] 650 - 975 mg PO Q4HR PRN #0 tablet 01/13/17 03/26/17 Gabapentin [Gabapentin] 800 mg PO TID 02/14/17 03/26/17 QUEtiapine [SEROquel] 200 mg PO DAILY 02/14/17 03/26/17 Apixaban [Eliquis] 1 tab PO BID 03/26/17 03/26/17 Phenazopyridine HCl 200 mg PO TID PRN #10 tablet 03/26/17 Sulfamethox/Trimeth 800/160 1 each PO BID #10 tablet 03/26/17 [Bactrim Ds 800/160] Nitrofurantoin Monohyd/M-Cryst 100 mg PO BID #10 capsule 06/27/17 [Macrobid 100 mg Capsule] - Allergies Allergies/Adverse Reactions: Allergies Allergy/AdvReac Type Severity Reaction Status Date / Time Penicillins Allergy Intermediate Edema Verified 06/27/17 15:27 aspirin AdvReac Intermediate Rash Verified 06/27/17 15:27 - Social History Does the pt smoke?: Yes Smoking Status: Current every day smoker Does the pt drink ETOH?: No Does the pt have substance abuse?: No - Immunizations Immunizations are current?: Yes Immunizations: TDAP >10years/unknown - POLST Patient has POLST: No PD ED PE NORMAL - Vitals Vital signs reviewed: Yes - General General: Alert and oriented X 3, No acute distress - Neck Neck: Supple, no meningeal sign - Cardiac Cardiac: RRR - Respiratory Respiratory: No respiratory distress, Clear bilaterally - Abdomen Abdomen: Soft, Non tender, Non distended - Back Back: No CVA TTP - Derm Derm: Warm and dry - Neuro Neuro: Alert and oriented X 3 - Psych Psych: Normal mood, Normal affect Results - Vitals Vitals: Vital Signs - 24 hr 06/27/17 15:24 Temperature 36.2 C L Heart Rate 102 H Respiratory 18 Rate Blood Pressure 124/71 O2 Saturation 95 Oxygen O2 Source Room air - Labs Labs: Laboratory Tests 06/27/17 15:10 Urine Color RED/BLOODY Urine Clarity BLOODY Urine pH 6.5 Ur Specific [place] 1.025 Urine Protein Urine Glucose (UA) Urine Ketones Urine Occult Blood Urine Nitrite Urine Bilirubin NEGATIVE Urine Urobilinogen Ur Leukocyte Esterase Urine RBC 11-25 H Urine WBC 11-25 H Urine WBC Clumps PRESENT Ur Squamous Epith Cells FEW Squamous Urine Bacteria Many H Ur Microscopic Review INDICATED Urine Culture Comments INDICATED PD MEDICAL DECISION MAKING - ED course Complexity details: reviewed results, considered differential, d/w patient ED course: Patient is a 51-year-old female who presents to the emergency department with symptoms of UTI. Urinalysis is consistent with this as well. Will place on antibiotics and follow-up with her doctor. No evidence of pyelonephritis. No fevers. No vomiting. Patient counseled regarding signs and symptoms for which I believe and urgent re-evaluation would be necessary. Patient with good understanding of and agreement to plan and is comfortable going home at this time This document was made in part using voice recognition software. While efforts are made to proofread this document, sound alike and grammatical errors may occur. Departure - Departure Disposition: 01 Home, Self Care Clinical Impression: Cystitis Condition: Good Instructions: ED UTI Cystitis Female Follow-Up: Sofia Burkett ARNP [Primary Care Provider] - Within 1 week Prescriptions: Nitrofurantoin Monohyd/M-Cryst [Macrobid 100 mg Capsule] 100 mg PO BID #10 capsule Comments: Take all antibiotics until gone. Return if you worsen. Discharge Date/Time: 06/27/17 16:20
== END 2017-06-27 16:20 | disposition home or self-care (01) ==
LOC: ED 14:52
DX: N30.90 Cystitis, unspecified without hematuria (principal); F17.200 Nicotine dependence, unspecified, uncomplicated; Z79.01 Long term (current) use of anticoagulants; I26.99 Other pulmonary embolism without acute cor pulmonale
CPT/HCPCS: 71046; 81001; 81003; 81025; 87086; 99283

== ENCOUNTER 2017-08-03 14:45 | Outpatient (CLI) | payer MEDICAID | END 2017-08-03 23:59 | disposition home or self-care (01) | LOC: LAB.R 14:45 | PROVIDERS: ATTEND Nurse Practitioner Family | DX: M19.90 Unspecified osteoarthritis, unspecified site (principal); Z79.891 Long term (current) use of opiate analgesic | CPT/HCPCS: 80307; 81599 ==

== ENCOUNTER 2017-09-01 13:50 | Outpatient (CLI) | payer MEDICAID | END 2017-09-01 13:51 | disposition home or self-care (01) | LOC: LAB.R 13:50 | PROVIDERS: ATTEND Nurse Practitioner Family | DX: M19.90 Unspecified osteoarthritis, unspecified site (principal) | CPT/HCPCS: 80307; 80321; 80354; 80361; 80362; 80365; 81599 ==

== ENCOUNTER 2017-11-28 13:45 | Outpatient (CLI) | payer MEDICAID ==
[2017-11-29 11:45] LABS: MUDS CUTOFF CONCENTRATIONS CUTOFF CONC BELOW:
[2017-11-29 12:17] LABS: AMPHETAMINE SCREEN,URINE NEGATIVE (NEGATIVE); BENZODIAZEPINES SCREEN, URINE NEGATIVE (NEGATIVE); COCAINE SCREEN URINE NEGATIVE (NEGATIVE); METHADONE SCREEN, URINE NEGATIVE (NEGATIVE); METHAMPHETAMINES SCREEN, URINE NEGATIVE (NEGATIVE); OPIATE SCREEN, URINE POSITIVE (NEGATIVE); TRICYCLIC ANTIDEPRESSANT,URINE POSITIVE (NEGATIVE)
[2017-11-29 12:18] LABS: OXYCODONE SCREEN, URINE NEGATIVE (NEGATIVE); PROPOXYPHENE SCREEN, URINE NEGATIVE (NEGATIVE)
== END 2017-11-28 23:59 ==
LOC: LAB.R 13:45
PROVIDERS: ATTEND Nurse Practitioner Family
DX: Z79.891 Long term (current) use of opiate analgesic (principal)
CPT/HCPCS: 80306

== ENCOUNTER 2018-01-25 08:00 | Outpatient (CLI) | payer MEDICAID ==
[2018-01-25 19:19] LABS: HB2 TOTAL 12.9 g/dL; HEMOGLOBIN A1C 1.26 g/dL; HEMOGLOBIN A1C % 11.1 % (4.6-6.2)
[2018-01-25 19:49] LABS: ALBUMIN 3.9 g/dL (3.2-5.5); ALBUMIN/GLOBULIN RATIO 1.1 (1.0-2.2); BILIRUBIN,TOTAL 0.9 mg/dL (0.2-1.0); CALCIUM 8.9 mg/dL (8.5-10.3); CREATININE 1.1 mg/dL (0.4-1.0); TOTAL PROTEIN 7.6 g/dL (6.7-8.2)
== END 2018-01-25 08:01 | disposition home or self-care (01) ==
LOC: LAB.WCP 08:00
PROVIDERS: ATTEND Nurse Practitioner Family
DX: R73.9 Hyperglycemia, unspecified (principal)
CPT/HCPCS: 36415; 80053; 82043; 83036; 84443

== ENCOUNTER 2018-02-07 11:00 | Outpatient (CLI) | payer MEDICAID | END 2018-02-07 11:01 | disposition home or self-care (01) | LOC: NS 11:00 | PROVIDERS: ATTEND Nurse Practitioner Family | DX: Z71.3 Dietary counseling and surveillance (principal); E11.9 Type 2 diabetes mellitus without complications; Z79.4 Long term (current) use of insulin; Z68.42 Body mass index [BMI] 45.0-49.9, adult | CPT/HCPCS: 97802 ==

== ENCOUNTER 2018-05-15 08:00 | Outpatient (CLI) | payer MEDICAID ==
[2018-05-15 18:53] LABS: BASOPHILS % (AUTO) 0.3 %; EOSINOPHILS # (AUTO) 0.1 10^3/uL (0.0-0.7); EOSINOPHILS % (AUTO) 1.9 %; HGB - HEMOGLOBIN 12.6 g/dL (12.0-16.0); LYMPHOCYTES # (AUTO) 2.5 10^3/uL (1.5-3.5); LYMPHOCYTES % (AUTO) 37.6 %; MEAN CORPUSCULAR HEMOGLOBIN 28.6 pg (27.0-31.0); MEAN CORPUSCULAR HGB CONC 32.1 g/dL (32.0-36.0); MEAN CORPUSCULAR VOLUME 89.3 fL (81.0-99.0); MEAN PLATELET VOLUME 8.1 fL (7.9-10.8); MONOCYTES # (AUTO) 0.4 10^3/uL (0.0-1.0); MONOCYTES % (AUTO) 6.3 %; NEUTROPHILS # (AUTO) 3.5 10^3/uL (1.5-6.6); NEUTROPHILS % (AUTO) 53.9 %; PLT - PLATELET COUNT 278 10^3/uL (130-450); RED CELL DISTRIBUTION WIDTH 15.4 % (12.0-15.0); WHITE BLOOD COUNT 6.5 x10^3/uL (4.8-10.8)
[2018-05-15 19:17] LABS: ALBUMIN 4.1 g/dL (3.2-5.5); ALBUMIN/GLOBULIN RATIO 1.1 (1.0-2.2); BILIRUBIN,TOTAL 0.4 mg/dL (0.2-1.0); CALCIUM 9.3 mg/dL (8.5-10.3); CREATININE 0.5 mg/dL (0.4-1.0); TOTAL PROTEIN 7.8 g/dL (6.7-8.2)
[2018-05-15 19:27] LABS: HB2 TOTAL 12.9 g/dL; HEMOGLOBIN A1C 0.49 g/dL; HEMOGLOBIN A1C % 5.6 % (4.6-6.2)
== END 2018-05-15 08:01 | disposition home or self-care (01) ==
LOC: LAB.N 08:00
PROVIDERS: ATTEND Nurse Practitioner Family
DX: E11.9 Type 2 diabetes mellitus without complications (principal); R79.89 Other specified abnormal findings of blood chemistry
CPT/HCPCS: 36415; 80053; 83036; 85025

== ENCOUNTER 2018-05-16 08:00 | Outpatient (CLI) | payer MEDICAID ==
[2018-05-16 18:28] LABS: MUDS CUTOFF CONCENTRATIONS CUTOFF CONC BELOW:
[2018-05-16 18:59] LABS: AMPHETAMINE SCREEN,URINE NEGATIVE (NEGATIVE); BENZODIAZEPINES SCREEN, URINE POSITIVE (NEGATIVE); COCAINE SCREEN URINE NEGATIVE (NEGATIVE); METHAMPHETAMINES SCREEN, URINE NEGATIVE (NEGATIVE); OPIATE SCREEN, URINE POSITIVE (NEGATIVE); TRICYCLIC ANTIDEPRESSANT,URINE POSITIVE (NEGATIVE)
[2018-05-16 19:00] LABS: METHADONE SCREEN, URINE NEGATIVE (NEGATIVE); OXYCODONE SCREEN, URINE NEGATIVE (NEGATIVE); PROPOXYPHENE SCREEN, URINE NEGATIVE (NEGATIVE)
== END 2018-05-16 08:01 ==
LOC: LAB.R 08:00
PROVIDERS: ATTEND Nurse Practitioner Family
DX: Z79.891 Long term (current) use of opiate analgesic (principal)
CPT/HCPCS: 80306

== ENCOUNTER 2018-06-29 11:45 | Outpatient (CLI) | payer MEDICAID ==
[2018-06-29 17:25] LABS: MUDS CUTOFF CONCENTRATIONS CUTOFF CONC BELOW:
[2018-06-29 17:55] LABS: AMPHETAMINE SCREEN,URINE NEGATIVE (NEGATIVE); BENZODIAZEPINES SCREEN, URINE NEGATIVE (NEGATIVE); COCAINE SCREEN URINE NEGATIVE (NEGATIVE); METHAMPHETAMINES SCREEN, URINE NEGATIVE (NEGATIVE); OPIATE SCREEN, URINE POSITIVE (NEGATIVE)
[2018-06-29 17:56] LABS: METHADONE SCREEN, URINE NEGATIVE (NEGATIVE); OXYCODONE SCREEN, URINE NEGATIVE (NEGATIVE); PROPOXYPHENE SCREEN, URINE NEGATIVE (NEGATIVE); TRICYCLIC ANTIDEPRESSANT,URINE POSITIVE (NEGATIVE)
== END 2018-06-29 23:59 | disposition home or self-care (01) ==
LOC: LAB.R 11:45
PROVIDERS: ATTEND Nurse Practitioner Family
DX: Z79.891 Long term (current) use of opiate analgesic (principal)
CPT/HCPCS: 80306

== ENCOUNTER 2018-11-02 14:13 | Emergency (ER) | payer MEDICAID ==
[2018-11-02 15:35] LABS: BASOPHILS # (AUTO) 0.1 10^3/uL (0.0-0.1); BASOPHILS % (AUTO) 0.7 %; EOSINOPHILS # (AUTO) 0.2 10^3/uL (0.0-0.7); EOSINOPHILS % (AUTO) 1.9 %; HGB - HEMOGLOBIN 10.1 g/dL (12.0-16.0); LYMPHOCYTES # (AUTO) 2.5 10^3/uL (1.5-3.5); LYMPHOCYTES % (AUTO) 28.5 %; MEAN CORPUSCULAR HEMOGLOBIN 28.2 pg (27.0-31.0); MEAN CORPUSCULAR HGB CONC 32.5 g/dL (32.0-36.0); MEAN CORPUSCULAR VOLUME 86.5 fL (81.0-99.0); MEAN PLATELET VOLUME 6.7 fL (7.9-10.8); MONOCYTES # (AUTO) 0.5 10^3/uL (0.0-1.0); MONOCYTES % (AUTO) 6.3 %; NEUTROPHILS # (AUTO) 5.4 10^3/uL (1.5-6.6); NEUTROPHILS % (AUTO) 62.6 %; PLT - PLATELET COUNT 417 10^3/uL (130-450); RED CELL DISTRIBUTION WIDTH 13.9 % (12.0-15.0); WHITE BLOOD COUNT 8.7 x10^3/uL (4.8-10.8)
[2018-11-02 15:40] LABS: CALCIUM 9.7 mg/dL (8.5-10.3); CREATININE 0.7 mg/dL (0.4-1.0)
--- NOTE | 2018-11-02 17:54 | ED Physician Documentation ---
History of Present Illness - Stated complaint Stated Complaint: KNEE PX - Chief complaint Chief Complaint: Ext Problem - History obtained from History obtained from: Patient - Additonal information Additional information: The patient is a 52-year-old female who is 10 days status post left total knee replacement, and she was sent here from physical therapy for evaluation of her knee. She has noticed redness and warmth of the left knee, increasing over the past 3 days. She denies fever, but has noticed "sweats" at night. She denies cough, shortness of breath, or dysuria. She is an insulin-dependent diabetic, and quit smoking cigarettes one year ago. She is concerned about the possibility of infection because following right hip surgery one year ago she experienced a superficial wound infection. Review of Systems Constitutional: reports: Sweats. 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 : None HEENT: None Psych: Anxiety, Bipolar disorder, Other Musculoskeletal: Osteoarthritis, Chronic back pain, Other Derm: None - Past Surgical History Past Surgical History: Yes General: Cholecystectomy, Appendectomy Ortho: Hip replacement, Knee replacement, Other HEENT: Tonsil/Adenoidectomy - Present Medications Home Medications: Ambulatory Orders Medication Instructions Recorded Confirmed QUEtiapine [SEROquel] 300 mg PO DAILY PM 03/01/15 11/02/18 Cetirizine [ZyrTEC] 10 mg PO DAILY 04/03/15 11/02/18 Omeprazole [PriLOSEC] 20 mg PO DAILY 04/03/15 11/02/18 Hydrocodone/Acetaminophen 1 - 2 each PO Q6H PRN #20 tablet 05/17/15 11/02/18 [Hydrocodone-Acetamin 5-325 mg] Gabapentin 800 mg PO TID 02/14/17 11/02/18 Insulin Glargine [Lantus Solostar] 33 unit SQ QDDINNER 02/14/18 11/02/18 Metformin HCl 1,000 mg PO BID 02/14/18 11/02/18 Hydrocodone/Acetaminophen 1 - 2 each PO Q8H PRN #15 tablet 11/02/18 [Hydrocodon-Acetaminophen 5-325] - Allergies Allergies/Adverse Reactions: Allergies Allergy/AdvReac Type Severity Reaction Status Date / Time Penicillins Allergy Intermediate Edema Verified 11/02/18 14:47 - Social History Does the pt smoke?: No Smoking Status: Former smoker Does the pt drink ETOH?: No Does the pt have substance abuse?: No - Immunizations Immunizations are current?: Yes Immunizations: TDAP >10years/unknown - POLST Patient has POLST: No PD ED PE NORMAL - Vitals Vital signs reviewed: Yes (normal) - General General: Alert and oriented X 3, Well developed/nourished, Other (Overweight.) - HEENT HEENT: Atraumatic, Pharynx benign - Neck Neck: No adenopathy, No JVD - Cardiac Cardiac: RRR - Respiratory Respiratory: No respiratory distress, Clear bilaterally - Abdomen Abdomen: Soft, Non tender - Back Back: No CVA TTP - Derm Derm: No rash - Extremities Extremities: No calf tenderness / cord, Other (Surgical wound over the patellar aspect of the left knee is intact. There is no surrounding erythema, but faint ecchymosis. The left knee is slightly warmer to touch than the right, but is not a "hot knee." There is no drainage from the wound. She is able to fully extend the knee and can flex it to nearly 90. Distal neurovascular is intact.) - Neuro Neuro: Alert and oriented X 3, No motor deficit, Normal speech Results - Vitals Vitals: Oxygen O2 Source Room air - Labs Labs: Laboratory Tests 11/02/18 11/02/18 11/02/18 15:26 15:26 15:26 WBC 8.7 RBC 3.60 L Hgb 10.1 L Hct 31.1 L MCV 86.5 MCH 28.2 MCHC 32.5 RDW 13.9 Plt Count 417 MPV 6.7 L Neut # (Auto) 5.4 Lymph # (Auto) 2.5 [place] # (Auto) 0.5 Eos # (Auto) 0.2 Baso # (Auto) 0.1 Absolute Nucleated RBC 0.01 Nucleated RBC % 0.1 ESR 69 H Sodium 139 Potassium 4.2 Chloride 102 Carbon Dioxide 27 Anion Gap 10.0 BUN 12 Creatinine 0.7 Estimated GFR (MDRD) 88 L Glucose 101 H Calcium 9.7 C-Reactive Protein 11/02/18 15:26 WBC RBC Hgb Hct MCV MCH MCHC RDW Plt Count MPV Neut # (Auto) Lymph # (Auto) [place] # (Auto) Eos # (Auto) Baso # (Auto) Absolute Nucleated RBC Nucleated RBC % ESR Sodium Potassium Chloride Carbon Dioxide Anion Gap BUN Creatinine Estimated GFR (MDRD) Glucose Calcium C-Reactive Protein 3.4 H PD MEDICAL DECISION MAKING - ED course Complexity details: reviewed results, re-evaluated patient, considered differential, d/w patient, d/w design sales consultant ED course: The patient's presentation is most consistent with postoperative left knee pain, 10 days status post left total knee replacement. I do not see evidence of a postoperative infection at this time. Her white blood cell count is normal at 8.7. Her sedimentation rate and C-reactive protein are elevated at 69 and 3.4, which is consistent with postoperative changes in these inflammatory markers. I discussed her presentation with the PA who works with Dr. Mendez, her orthopedic surgeon. He agrees that the patient's presentation sounds typical for postoperative knee pain, and advises that antibiotics are not necessarily indicated. He confirms that the patient has postop follow-up 4 days from now. I discussed with the patient the results of her workup, symptomatic treatment and the importance of outpatient follow-up, as well as potentially worrisome signs or symptoms that should prompt reevaluation in the emergency department. She is being discharged with a prescription for Vicodin, 14 tablets. Departure - Departure Disposition: 01 Home, Self Care Clinical Impression: Postoperative pain of knee, Status post left knee replacement Condition: Stable Instructions: ED Post Op Pain Follow-Up: Sofia Burkett ARNP [Primary Care Provider] - Roberto Mendez MD [Physician No Access] - Prescriptions: Hydrocodone/Acetaminophen [Hydrocodon-Acetaminophen 5-325] 1 - 2 each PO Q8H PRN #15 tablet PRN Reason: pain Comments: Apply ice pack to your left knee intermittently. Keep your leg elevated as much the time as possible. You can use ibuprofen, up to 800 mg 3 times daily for its anti-inflammatory effect. You can use Vicodin as prescribed if needed for pain. Follow-up with your orthopedic surgeon next week as scheduled. Return to the emergency department if you develop increasing pain or swelling of your knee, or otherwise worsening symptoms. Discharge Date/Time: 11/02/18 18:04
[2018-11-02 17:57] VITALS: BP 120/87
== END 2018-11-02 18:04 | disposition home or self-care (01) ==
LOC: ED 14:13
DX: G89.18 Other acute postprocedural pain (principal); M25.562 Pain in left knee; Z96.652 Presence of left artificial knee joint; E11.9 Type 2 diabetes mellitus without complications; Z79.4 Long term (current) use of insulin; Z87.891 Personal history of nicotine dependence; Z96.649 Presence of unspecified artificial hip joint
CPT/HCPCS: 36415; 80048; 85025; 85651; 86140; 99283

== ENCOUNTER 2018-11-16 08:00 | Outpatient (CLI) | payer MEDICAID ==
[2018-11-16 12:52] LABS: BASOPHILS # (AUTO) 0.1 10^3/uL (0.0-0.1); BASOPHILS % (AUTO) 1.3 %; EOSINOPHILS # (AUTO) 0.1 10^3/uL (0.0-0.7); EOSINOPHILS % (AUTO) 2.6 %; HGB - HEMOGLOBIN 11.4 g/dL (12.0-16.0); LYMPHOCYTES # (AUTO) 2.6 10^3/uL (1.5-3.5); LYMPHOCYTES % (AUTO) 50.8 %; MEAN CORPUSCULAR HEMOGLOBIN 28.3 pg (27.0-31.0); MEAN CORPUSCULAR HGB CONC 32.8 g/dL (32.0-36.0); MEAN CORPUSCULAR VOLUME 86.3 fL (81.0-99.0); MONOCYTES # (AUTO) 0.3 10^3/uL (0.0-1.0); MONOCYTES % (AUTO) 6.3 %; PLT - PLATELET COUNT 353 10^3/uL (130-450); RED BLOOD COUNT 4.02 10^6/uL (4.20-5.40); RED CELL DISTRIBUTION WIDTH 14.1 % (12.0-15.0); WHITE BLOOD COUNT 5.2 x10^3/uL (4.8-10.8)
[2018-11-16 13:08] LABS: HB2 TOTAL 12.2 g/dL; HEMOGLOBIN A1C 0.48 g/dL; HEMOGLOBIN A1C % 5.8 % (4.6-6.2)
[2018-11-16 13:28] LABS: ALBUMIN 3.9 g/dL (3.2-5.5); ALBUMIN/GLOBULIN RATIO 1.1 (1.0-2.2); ALKALINE PHOSPHATASE 138 IU/L (42-121); ALT ALANINE AMINOTRANSFERASE 23 IU/L (10-60); AST ASPARTATE AMINOTRANSFERASE 31 IU/L (10-42); BILIRUBIN,TOTAL 0.5 mg/dL (0.2-1.0); BUN - BLOOD UREA NITROGEN 11 mg/dL (6-20); CARBON DIOXIDE - CO2 24 mmol/L (21-32); CHLORIDE 105 mmol/L (101-111); CHOL/HDL RATIO 3.1 (<4.4); CHOLESTEROL 132 mg/dL; CREATININE 0.7 mg/dL (0.4-1.0); GFR - MDRD 88 (>89); GLUCOSE 108 mg/dL (70-100); HDL CHOLESTEROL 43 mg/dL; LDL CHOLESTEROL,CALCULATED 63 mg/dL; LDL/HDL RATIO 1.5 (<4.4); SODIUM 140 mmol/L (135-145); TOTAL PROTEIN 7.6 g/dL (6.7-8.2); VLDL CHOLESTEROL 26 mg/dL
== END 2018-11-16 23:59 | disposition home or self-care (01) ==
LOC: LAB.N 08:00
PROVIDERS: ATTEND Nurse Practitioner Family
DX: E11.9 Type 2 diabetes mellitus without complications (principal); E78.5 Hyperlipidemia, unspecified
CPT/HCPCS: 36415; 80050; 80061; 82043; 83036; 83721

== ENCOUNTER 2019-01-11 11:47 | Emergency (ER) | payer MEDICAID ==
[2019-01-11 11:56] VITALS: BP 135/89
--- NOTE | 2019-01-11 12:08 | ED Physician Documentation ---
History of Present Illness - Stated complaint Stated Complaint: CONGESTED SINUS PRESSURE - Chief complaint Chief Complaint: Heent - History obtained from History obtained from: Patient - Additonal information Additional information: Patient is a 53-year-old female presenting with sinus congestion for the past 5 days with no relief after using Flonase and other [id number] medications. Patient reports frontal and maxillary sinus pressure with purulent drainage from the nose. Patient also reports subjective fever, but denies ear pain. However, she does report sore throat which she believes to be postnasal drip. Patient denies other difficulty breathing, productive cough, abdominal complaints. No other improving or worsening factors noted. 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 : None HEENT: None Psych: Anxiety, Bipolar disorder, Other Musculoskeletal: Osteoarthritis, Chronic back pain, Other Derm: None - Past Surgical History Past Surgical History: Yes General: Cholecystectomy, Appendectomy Ortho: Hip replacement, Knee replacement, Other HEENT: Tonsil/Adenoidectomy - Present Medications Home Medications: Ambulatory Orders Medication Instructions Recorded Confirmed QUEtiapine [SEROquel] 300 mg PO DAILY PM 03/01/15 11/02/18 Cetirizine [ZyrTEC] 10 mg PO DAILY 04/03/15 11/02/18 Omeprazole [PriLOSEC] 20 mg PO DAILY 04/03/15 11/02/18 Hydrocodone/Acetaminophen 1 - 2 each PO Q6H PRN #20 tablet 05/17/15 11/02/18 [Hydrocodone-Acetamin 5-325 mg] Gabapentin 800 mg PO TID 02/14/17 11/02/18 Insulin Glargine [Lantus Solostar] 33 unit SQ QDDINNER 02/14/18 11/02/18 Metformin HCl 1,000 mg PO BID 02/14/18 11/02/18 Hydrocodone/Acetaminophen 1 - 2 each PO Q8H PRN #15 tablet 11/02/18 [Hydrocodon-Acetaminophen 5-325] Amox/Clav 875/125 [Augmentin] 1 each PO Q12H 7 Days tablet 01/11/19 - Allergies Allergies/Adverse Reactions: Allergies Allergy/AdvReac Type Severity Reaction Status Date / Time Penicillins Allergy Intermediate Edema Verified 01/11/19 11:56 - Social History Does the pt smoke?: No Smoking Status: Never smoker Does the pt drink ETOH?: No Does the pt have substance abuse?: No - Immunizations Immunizations are current?: Yes Immunizations: TDAP >10years/unknown - POLST Patient has POLST: No PD ED PE NORMAL - Vitals Vital signs reviewed: Yes - General General: Alert and oriented X 3, No acute distress, Well developed/nourished - HEENT HEENT: Atraumatic, Moist mucous membranes, Pharynx benign, Dentition benign, Other (Pain with palpation of frontal maxillary sinuses) - Neck Neck: Supple, no meningeal sign - Cardiac Cardiac: RRR, No murmur - Respiratory Respiratory: No respiratory distress, Clear bilaterally - Derm Derm: Normal color, Warm and dry, No rash - Extremities Extremities: No deformity, No tenderness to palpate - Neuro Neuro: Alert and oriented X 3, No motor deficit, No sensory deficit - Psych Psych: Normal mood, Normal affect Results - Vitals Vitals: Vital Signs - 24 hr 01/11/19 11:53 Temperature 35.9 C L Heart Rate 100 Respiratory 22 Rate Blood Pressure 135/89 H O2 Saturation 96 Oxygen O2 Source Room air PD MEDICAL DECISION MAKING - ED course Complexity details: considered differential, d/w patient ED course: Patient presenting with likely sinus infection. Do not find evidence of tonsillitis, pharyngitis, peritonsillar abscess. Do not have concern for otitis externa or mastoiditis, as well as pneumonia or retropharyngeal abscess. Do not find evidence of sepsis or other systemic illness. Discussed use of antibiotics, supportive cares, return precautions and follow-up. Patient voiced understanding and is comfortable with discharge plan. Departure - Departure Disposition: 01 Home, Self Care Clinical Impression: Sinusitis Qualifiers: Sinusitis location: unspecified location Chronicity: acute Recurrence: non- recurrent Qualified Code(s): J01.90 - Acute sinusitis, unspecified Condition: Good Instructions: ED Sinusitis Abx Tx Follow-Up: Joanne Pace ARNP [Primary Care Provider] - Within 3 Days Prescriptions: Amox/Clav 875/125 [Augmentin] 1 each PO Q12H 7 Days tablet Comments: Please take antibiotics as prescribed for likely sinus infection. Recommend taking with a small amount of food to avoid upset stomach.Please continue any home medications as previously instructed. Follow-up with primary care physician in next 2 to 3 days and return to ED sooner if experience worsening symptoms or have other concerns.
== END 2019-01-11 12:34 | disposition home or self-care (01) ==
LOC: ED 11:47
DX: J01.90 Acute sinusitis, unspecified (principal); E11.9 Type 2 diabetes mellitus without complications; Z79.4 Long term (current) use of insulin
CPT/HCPCS: 99282; 99284

== ENCOUNTER 2019-05-09 09:54 | Outpatient (CLI) | payer MEDICAID ==
[2019-05-09 15:56] LABS: CALCIUM 9.3 mg/dL (8.5-10.3); CREATININE 0.5 mg/dL (0.4-1.0)
[2019-05-09 17:43] LABS: HB2 TOTAL 11.5 g/dL; HEMOGLOBIN A1C 0.54 g/dL; HEMOGLOBIN A1C % 6.4 % (4.6-6.2)
== END 2019-05-09 23:59 | disposition home or self-care (01) ==
LOC: LAB.N 09:54
PROVIDERS: ATTEND Registered Nurse
DX: E11.9 Type 2 diabetes mellitus without complications (principal)
CPT/HCPCS: 36415; 80048; 83036

== ENCOUNTER 2020-01-16 09:46 | Outpatient (CLI) | payer MEDICAID ==
[2020-01-16 12:26] LABS: BASOPHILS % (AUTO) 0.6 %; EOSINOPHILS # (AUTO) 0.2 10^3/uL (0.0-0.7); EOSINOPHILS % (AUTO) 3.1 %; HGB - HEMOGLOBIN 11.2 g/dL (12.0-16.0); LYMPHOCYTES # (AUTO) 2.3 10^3/uL (1.5-3.5); LYMPHOCYTES % (AUTO) 45.9 %; MEAN CORPUSCULAR HEMOGLOBIN 26.9 pg (27.0-31.0); MEAN CORPUSCULAR HGB CONC 30.6 g/dL (32.0-36.0); MEAN CORPUSCULAR VOLUME 87.8 fL (81.0-99.0); MEAN PLATELET VOLUME 11.5 fL (7.9-10.8); MONOCYTES # (AUTO) 0.4 10^3/uL (0.0-1.0); MONOCYTES % (AUTO) 7.9 %; NEUTROPHILS # (AUTO) 2.2 10^3/uL (1.5-6.6); NEUTROPHILS % (AUTO) 42.3 %; PLT - PLATELET COUNT 232 10^3/uL (130-450); RED BLOOD COUNT 4.17 10^6/uL (4.20-5.40); RED CELL DISTRIBUTION WIDTH 15.9 % (12.0-15.0); WHITE BLOOD COUNT 5.1 x10^3/uL (4.8-10.8)
[2020-01-16 12:40] LABS: HEMOGLOBIN A1C 0.52 g/dL; HEMOGLOBIN A1C % 6.1 % (4.6-6.2)
[2020-01-16 12:51] LABS: ALKALINE PHOSPHATASE 160 IU/L (42-121); ALT ALANINE AMINOTRANSFERASE 51 IU/L (10-60); AST ASPARTATE AMINOTRANSFERASE 80 IU/L (10-42); BILIRUBIN,TOTAL 0.6 mg/dL (0.2-1.0); BUN - BLOOD UREA NITROGEN 12 mg/dL (6-20); CALCIUM 9.1 mg/dL (8.5-10.3); CARBON DIOXIDE - CO2 26 mmol/L (21-32); CHLORIDE 101 mmol/L (101-111); CHOL/HDL RATIO 3.1 (<4.4); CHOLESTEROL 140 mg/dL; CREATININE 0.7 mg/dL (0.4-1.0); GLUCOSE 98 mg/dL (70-100); HDL CHOLESTEROL 45 mg/dL; LDL CHOLESTEROL,CALCULATED 74 mg/dL; LDL/HDL RATIO 1.6 (<4.4); SODIUM 138 mmol/L (135-145); TOTAL PROTEIN 7.9 g/dL (6.7-8.2); VLDL CHOLESTEROL 21 mg/dL
== END 2020-01-16 09:47 | disposition home or self-care (01) ==
LOC: LAB.WCP 09:46
PROVIDERS: ATTEND Registered Nurse
DX: D64.9 Anemia, unspecified (principal); E11.9 Type 2 diabetes mellitus without complications; R79.89 Other specified abnormal findings of blood chemistry; G47.33 Obstructive sleep apnea (adult) (pediatric); K21.9 Gastro-esophageal reflux disease without esophagitis; E78.5 Hyperlipidemia, unspecified; F31.9 Bipolar disorder, unspecified
CPT/HCPCS: 36415; 80050; 80061; 83036; 83721

== ENCOUNTER 2020-04-22 12:25 | Outpatient (CLI) | payer MEDICAID ==
--- NOTE | 2020-04-23 16:32 | Mammography Report ---
BILATERAL DIGITAL SCREENING MAMMOGRAM 3D/2D: 04/22/2020 CLINICAL: Routine screening. Comparison is made to exam dated: 12/16/2014 mammogram - [facility]. The tissue of both breasts is predominantly fatty. No significant masses, calcifications, or other findings are seen in either breast. There has been no significant interval change. IMPRESSION: NEGATIVE There is no mammographic evidence of malignancy. A 1 year screening mammogram is recommended. This exam was interpreted at Station ID: [id number]. NOTE: For mammograms, a report in lay terms will be sent to the patient. Approximately 15% of breast malignancies will not be visualized mammographically. In the management of a palpable breast mass, a negative mammogram must not discourage biopsy of a clinically suspicious lesion. Electronically Signed By: Joanna grove/marilee:04/22/2020 17:08:09 ACR BI-RADS Category 1: Negative 3341F PARENCHYMAL PATTERN: (F) - The breast(s) demonstrate(s) diffuse fatty replacement. BI-RADS CATEGORY: (1) - 1 RECOMMENDATION: (ANNUAL) - Recommend routine annual screening mammography. [id number] 1 year screening LATERALITY: (B)
== END 2020-04-22 12:26 | disposition home or self-care (01) ==
LOC: DI.N 12:25
PROVIDERS: ATTEND Registered Nurse
DX: Z12.31 Encounter for screening mammogram for malignant neoplasm of breast (principal)
CPT/HCPCS: 77063; 77067

== ENCOUNTER 2020-11-28 15:08 | Outpatient (CLI) | payer MEDICAID ==
[2020-11-28 18:15] LABS: THYROID STIMULATING HORMONE 1.9 uIU/mL (0.34-5.60)
== END 2020-11-28 23:59 | disposition home or self-care (01) ==
LOC: LAB.WCP 15:08
PROVIDERS: ATTEND Registered Nurse
DX: R63.5 Abnormal weight gain (principal)
CPT/HCPCS: 36415; 84443

== ENCOUNTER 2020-12-13 13:14 | Emergency (ER) | payer MEDICAID ==
--- NOTE | 2020-12-13 13:42 | ED Physician Documentation ---
PD HPI DYSPNEA - Stated complaint Stated Complaint: SOA - Chief complaint Chief Complaint: Resp - History obtained from History obtained from: Patient - Additional information Additional information: This is a 54-year-old woman with history of morbid obesity, history of multiple joint issues including a hip replacements in 2017 complicated by pulmonary emboli. Not currently anticoagulated. She has no other history of heart or lung problems, although prior records show that she was on Serevent at one point. She describes about 2 to 3 weeks of progressive shortness of breath. She has orthopnea and significant dyspnea on exertion. She denies pedal edema. There is no associated chest pain or discomfort. No fevers or cough. She has been sneezing and worries a bit about Covid but has not had any fevers or chills. When asked about body aches she has multiple joint issues but not really myalgias per se. She also has an ancillary complaint of needing some pain medication for chronic right knee pain which is pending a replacement. Review of Systems Ten Systems: 10 systems reviewed and negative Constitutional: reports: Reviewed and negative Ears: denies: Loss of hearing, Ear pain Nose: reports: Rhinorrhea / runny nose. denies: Congestion Throat: denies: Dental pain / toothache, Sore throat Cardiac: denies: Chest pain / pressure, Palpitations, Pedal edema, Calf pain Respiratory: reports: Dyspnea. denies: Cough PD PAST MEDICAL HISTORY - Past Medical History Cardiovascular: None, High cholesterol Respiratory: Asthma, Sleep apnea, Other Neuro: None Endocrine/Autoimmune: Type 2 diabetes GI: GERD, Hepatitis RELAY ASSOCIATE: None : None HEENT: None Psych: Anxiety, Bipolar disorder, Other Musculoskeletal: Osteoarthritis, Chronic back pain, Other Derm: None - Past Surgical History Past Surgical History: Yes General: Cholecystectomy, Appendectomy Ortho: Hip replacement, Knee replacement, Other HEENT: Tonsil/Adenoidectomy - Present Medications Home Medications: Ambulatory Orders Medication Instructions Recorded Confirmed QUEtiapine [SEROquel] 500 mg PO DAILY PM 03/01/15 12/13/20 Cetirizine [ZyrTEC] 10 mg PO DAILY 04/03/15 12/13/20 Omeprazole [PriLOSEC] 20 mg PO DAILY 04/03/15 12/13/20 Gabapentin 1,600 mg PO BID 02/14/17 11/02/18 Insulin Glargine [Lantus Solostar] 27 unit SQ QDDINNER 02/14/18 12/13/20 Metformin HCl 1,000 mg PO BID 02/14/18 12/13/20 Ferrous Sulfate 325 mg PO TID #90 12/13/20 HYDROcod/ACETAM 5/325 [[place]ife 5/325] 1 - 2 tab PO Q6H PRN #15 tablet 12/13/20 - Allergies Allergies/Adverse Reactions: Allergies Allergy/AdvReac Type Severity Reaction Status Date / Time Penicillins Allergy Intermediate Edema Verified 12/13/20 13:28 - Social History Does the pt smoke?: No Smoking Status: Former smoker Does the pt drink ETOH?: No Does the pt have substance abuse?: No - Immunizations Immunizations are current?: Yes Immunizations: TDAP >10years/unknown - POLST Patient has POLST: No PD ED PE NORMAL - Vitals Vital signs reviewed: Yes - General General: Alert and oriented X 3, No acute distress - HEENT HEENT: PERRL, EOMI - Neck Neck: Supple, no meningeal sign, No bony TTP - Cardiac Cardiac: Other (Slight tachycardia but regular, heart sounds distant due to body habitus.) - Respiratory Respiratory: Other (Very slightly breathless with talking but speaking in full sentences, diminished at the right base) - Abdomen Abdomen: Normal bowel sounds, Soft, Non tender - Back Back: No CVA TTP, No spinal TTP - Derm Derm: Normal color, Warm and dry - Extremities Extremities: Other (The right knee has a large effusion but it is not tender and she has painless passive range of motion without warmth or redness. There is no calf edema or tenderness.) - Neuro Neuro: Alert and oriented X 3, Normal speech - Psych Psych: Normal mood, Normal affect Results - Vitals Vitals: Vital Signs - 24 hr 12/13/20 12/13/20 13:21 13:35 Heart Rate 113 H 97 Respiratory 18 17 Rate Blood Pressure 169/103 H 163/79 H O2 Saturation 95 98 Oxygen O2 Source Room air - EKG (time done) 1341 Rate: Rate (enter#) (95) Rhythm: NSR [place]: Normal Intervals: Normal [place] QRS: Normal Ischemia: Non specific changes (Flat T waves throughout) - Labs Labs: Laboratory Tests 12/13/20 12/13/20 12/13/20 13:40 13:40 13:40 WBC 5.3 RBC 3.67 L Hgb 9.2 L Hct 32.0 L MCV 87.2 MCH 25.1 L MCHC 28.8 L RDW 16.4 H Plt Count 188 MPV 10.5 Neut # (Auto) 2.8 Lymph # (Auto) 1.9 [place] # (Auto) 0.5 Eos # (Auto) 0.1 Baso # (Auto) 0.0 Absolute Nucleated RBC 0.00 Nucleated RBC % 0.0 Manual Slide Review Indicated Platelet Estimate NORMAL (130-450,000) Platelet Morphology NORMAL APPEARANCE RBC Morph Micro Appear 1+ POLYCHROMASIA Sodium 138 Potassium 3.7 Chloride 103 Carbon Dioxide 28 Anion Gap 7.0 BUN 11 Creatinine 0.6 Estimated GFR (MDRD) 104 Glucose 189 H Calcium 8.9 Troponin I High Sens 6.6 B-Natriuretic Peptide Nasal Adenovirus (PCR) Nasal B. parapertussis DNA (PCR) Nasal Coronavir 229E PCR Nasal Coronavir HKU1 PCR Nasal Coronavir NL63 PCR Nasal Coronavir OC43 PCR Nasal Enterovir/Rhinovir PCR Nasal Influenza B PCR Nasal Influenza A PCR Nasal Parainfluen 1 PCR Nasal Parainfluen 2 PCR Nasal Parainfluen 3 PCR Nasal Parainfluen 4 PCR Nasal RSV (PCR) Nasal B.pertussis DNA PCR Nasal C.pneumoniae (PCR) [place] Human Metapneumo PCR Nasal M.pneumoniae (PCR) Nasal SARS-CoV-2 (PCR) 12/13/20 12/13/20 13:40 13:40 WBC RBC Hgb Hct MCV MCH MCHC RDW Plt Count MPV Neut # (Auto) Lymph # (Auto) [place] # (Auto) Eos # (Auto) Baso # (Auto) Absolute Nucleated RBC Nucleated RBC % Manual Slide Review Platelet Estimate Platelet Morphology RBC Morph Micro Appear Sodium Potassium Chloride Carbon Dioxide Anion Gap BUN Creatinine Estimated GFR (MDRD) Glucose Calcium Troponin I High Sens B-Natriuretic Peptide 44 Nasal Adenovirus (PCR) NOT DETECTED Nasal B. parapertussis DNA (PCR) NOT DETECTED Nasal Coronavir 229E PCR NOT DETECTED Nasal Coronavir HKU1 PCR NOT DETECTED Nasal Coronavir NL63 PCR NOT DETECTED Nasal Coronavir OC43 PCR NOT DETECTED Nasal Enterovir/Rhinovir PCR NOT DETECTED Nasal Influenza B PCR NOT DETECTED Nasal Influenza A PCR NOT DETECTED Nasal Parainfluen 1 PCR NOT DETECTED Nasal Parainfluen 2 PCR NOT DETECTED Nasal Parainfluen 3 PCR NOT DETECTED Nasal Parainfluen 4 PCR NOT DETECTED Nasal RSV (PCR) NOT DETECTED Nasal B.pertussis DNA PCR NOT DETECTED Nasal C.pneumoniae (PCR) NOT DETECTED [place] Human Metapneumo PCR NOT DETECTED Nasal M.pneumoniae (PCR) NOT DETECTED Nasal SARS-CoV-2 (PCR) NOT DETECTED - Rads (name of study) CT Chest Radiology: EMP read contemporaneously PD MEDICAL DECISION MAKING - ED course ED course: 54-year-old woman with history of PE, morbid obesity presents with dyspnea on exertion and some orthopnea. She feels like it is just because of her weight. Differential diagnosis includes PE, coronary disease, pneumonia. She is also specifically concerned about Covid. The above were checked with CT angiography, BNP, EKG, troponin, and respiratory panel. All were negative. Of note she is more anemic than she has been in the past, she has a history of anemia, but usually with hemoglobin in the 11 range. This may be contributing. She is not at the point where we would consider transfusion but we will start on iron supplements pending follow-up with her physician. She also needed something for her knee pain and pending follow-up for that. I am prescribing a short course of short-acting opioid pain medication for this patient. I have reviewed the patients HEALTH INFORMATION DIRECTOR and no concerning findings were noted. I have discussed that the opioids are for short term therapy only, and will not be refilled from the ED. Departure - Departure Disposition: 01 Home, Self Care Clinical Impression: Effusion, right knee Dyspnea Qualifiers: Dyspnea type: dyspnea on exertion Qualified Code(s): R06.00 - Dyspnea, unspecified Condition: Stable Record reviewed to determine appropriate education?: Yes Instructions: ED Dyspnea Shortness of Breath Prescriptions: Ferrous Sulfate 325 mg PO TID #90 HYDROcod/ACETAM 5/325 [[place] 5/325] 1 - 2 tab PO Q6H PRN #15 tablet PRN Reason: Pain Comments: As discussed, you were seen today for shortness of breath. There is no evidence of heart issues or lung issues. You are more anemic than you have been in the past and they this may be contributing. No evidence of blood clots. Start the iron supplement, follow-up with your doctor as scheduled. Your doctor may want to repeat labs to make sure the anemia is improving. Also I am prescribing some pain medication for your right knee issue. Make sure to follow-up for that as you are planning as well. Return for any new or worsening symptoms. I am prescribing a short course of narcotic pain medication for you. These are potentially dangerous and addictive medications that should be used carefully. These medications may constipate you. Take an [id number] stool softener (docusate) twice daily with plenty of water while taking these medications. If you go 24 hours without a bowel movement, take [id number] miralax, per package instructions. Do not drink or drive while taking these medications. If you received narcotic or sedating medications while in the emergency department, do not drive for 24 hours. Store this medication in a safe, secure place and out of reach of children. It is a violation of federal law to give or sell this medication to another person or to use in a manner other than prescribed. The ED will not refill narcotic prescriptions, including prescriptions lost or stolen. To dispose of unwanted medications: 1. [facility] at [address] in [place] has a medication drop box. They accept prescription medications (in pill form) Tuesday through Tuesday 9:00 a.m. to 5:00 p.m. 2. [facility] accepts prescription medications (in pill form only) for disposal year round. Call for more information. 3. Contact the [facility] for the next [facility] sponsored prescription drug collection event. , [phone], or [phone]; Note that many narcotic pain relievers also contain Tylenol/acetaminophen. Please ensure that your total dose of acetaminophen from all sources does not exceed 3 g (3000 mg) per day.
[2020-12-13] MEDS ORDERED: IOVERSOL 320 100 ML VIAL IVP ONE ×2 (13:44→14:39)
[2020-12-13 13:53] LABS: BASOPHILS % (AUTO) 0.4 %; EOSINOPHILS # (AUTO) 0.1 10^3/uL (0.0-0.7); EOSINOPHILS % (AUTO) 2.4 %; HGB - HEMOGLOBIN 9.2 g/dL (12.0-16.0); LYMPHOCYTES # (AUTO) 1.9 10^3/uL (1.5-3.5); LYMPHOCYTES % (AUTO) 36.4 %; MEAN CORPUSCULAR HEMOGLOBIN 25.1 pg (27.0-31.0); MEAN CORPUSCULAR HGB CONC 28.8 g/dL (32.0-36.0); MEAN CORPUSCULAR VOLUME 87.2 fL (81.0-99.0); MEAN PLATELET VOLUME 10.5 fL (7.9-10.8); MONOCYTES # (AUTO) 0.5 10^3/uL (0.0-1.0); MONOCYTES % (AUTO) 8.8 %; NEUTROPHILS # (AUTO) 2.8 10^3/uL (1.5-6.6); NEUTROPHILS % (AUTO) 51.8 %; PLT - PLATELET COUNT 188 10^3/uL (130-450); RED BLOOD COUNT 3.67 10^6/uL (4.20-5.40); RED CELL DISTRIBUTION WIDTH 16.4 % (12.0-15.0); WHITE BLOOD COUNT 5.3 x10^3/uL (4.8-10.8)
[2020-12-13 14:02] LABS: SLIDE REVIEW? Indicated
[2020-12-13 14:10] LABS: CALCIUM 8.9 mg/dL (8.5-10.3); CREATININE 0.6 mg/dL (0.4-1.0); POTASSIUM 3.7 mmol/L (3.5-5.0)
[2020-12-13 14:21] LABS: PLATELET ESTIMATE, MANUAL NORMAL (130-450,000) (NORMAL); PLATELET MORPHOLOGY NORMAL APPEARANCE (NORMAL)
[2020-12-13 14:46] LABS: B. PARAPERTUSSIS- RESP PCR PAN NOT DETECTED; B. PERTUSSIS- RESP PCR PANEL NOT DETECTED; C. PNEUMONIAE- RESP PCR PANEL NOT DETECTED; CORONAVIRUS 229E-RESP PCR NOT DETECTED; CORONAVIRUS HKU1-RESP PCR NOT DETECTED; CORONAVIRUS NL63-RESP PCR NOT DETECTED; CORONAVIRUS OC43-RESP PCR NOT DETECTED; HUMAN METAPNEUMOVIRUS NOT DETECTED; INFLUENZA A- RESP PCR PANEL NOT DETECTED; INFLUENZA B - RESP PCR PANEL NOT DETECTED; M. PNEUMONIAE- RESP PCR PANEL NOT DETECTED; PARAINFLUENZA VIRUS 1 NOT DETECTED; PARAINFLUENZA VIRUS 2 NOT DETECTED; PARAINFLUENZA VIRUS 3 NOT DETECTED; PARAINFLUENZA VIRUS 4 NOT DETECTED; RHINOVIRUS/ENTEROVIRUS NOT DETECTED; RSV- RESP PCR PANEL NOT DETECTED; SARS-CoV-2 -RESP PCR PANEL NOT DETECTED
--- NOTE | 2020-12-13 15:07 | CT Report ---
PROCEDURE: ANGIO CHEST W/WO INDICATIONS: dyspnea, hx PE, pe protocol CONTRAST: IV CONTRAST: Optiray 320 ml: 80 PO CONTRAST: *NO PO CONTRAST TECHNIQUE: After the administration of intravenous contrast, 2 mm thick sections acquired from the pulmonary api nellie to the posterior costophrenic angles. 3-dimensional maximum intensity projection (MIP) coronal a nd sagittal reformats were then acquired through the thorax. For radiation dose reduction, the follow ing was used: automated exposure control, adjustment of mA and/or kV according to patient size. COMPARISON: 02/14/2017 FINDINGS: Image quality: Imaging somewhat limited by patient body habitus. Pulmonary arteries: Pulmonary arteries are normal in size, and demonstrate no intraluminal filling d efects to suggest central pulmonary embolism. Lungs and pleura: Lungs are clear. Minimal bibasilar atelectasis. No pleural effusions or pneumotho rax. Central and peripheral airways are patent. Mediastinum: Heart size is normal, without pericardial effusion. No mediastinal or hilar adenopathy . Thoracic aorta is normal in caliber and enhancement. Esophagus is normal in caliber, without hiat al hernia. Bones and chest wall: No suspicious bony lesions. Ribs and thoracic spine appear intact throughout. No axillary or supraclavicular adenopathy. The thyroid is normal in size and there are no incident al findings. Abdomen: There is splenomegaly. There is probable hepatomegaly and probable diffuse hepatic steatosis . IMPRESSION: 1. No evidence acute pulmonary emboli. 2. Minimal bibasilar atelectasis. 3. Splenomegaly. 4. Probable hepatomegaly and probable mild hepatic steatosis. CLINICAL RECOMMENDATION STATEMENTS: In patients <35 years with an ITN detected on CT, MRI, or extrathyroidal ultrasound, the Committee re commends further evaluation with dedicated thyroid ultrasound if the nodule is ?1 cm and has no suspi cious imaging features, and if the patient has normal life expectancy. In patients ?35 years with an ITN detected on CT, MRI, or extrathyroidal ultrasound, the Committee re commends further evaluation with dedicated thyroid ultrasound if the nodule is ?1.5 cm and has no heidy picious imaging features, and if the patient has normal life expectancy. (ACR, 2014) Reviewed by: Dmitry Escobar MD on 12/13/2020 2:05 PM MATTIE Approved by: Dmitry Escobar MD on 12/13/2020 2:05 PM MATTIE Station ID: [id number]
[2020-12-13 15:20] VITALS: BP 171/85
== END 2020-12-13 15:21 | disposition home or self-care (01) ==
LOC: ED 13:14
DX: R06.09 Other forms of dyspnea (principal); M25.461 Effusion, right knee; E66.01 Morbid (severe) obesity due to excess calories; E11.9 Type 2 diabetes mellitus without complications; Z79.4 Long term (current) use of insulin; Z87.891 Personal history of nicotine dependence; Z86.711 Personal history of pulmonary embolism; D64.9 Anemia, unspecified; Z20.822 Contact with and (suspected) exposure to COVID-19
CPT/HCPCS: 0202U; 36415; 71275; 80048; 83880; 84484; 85025; 93005; 99284; Q9967

== ENCOUNTER 2020-12-29 08:00 | Outpatient (CLI) | payer MEDICAID ==
[2020-12-29 17:53] LABS: ABSOLUTE RETICS # AUTO 0.117 10^6/uL (0.020-0.110); BASOPHILS % (AUTO) 0.4 %; EOSINOPHILS # (AUTO) 0.1 10^3/uL (0.0-0.7); EOSINOPHILS % (AUTO) 2.1 %; HCT - HEMATOCRIT 35.3 % (37.0-47.0); HGB - HEMOGLOBIN 10.3 g/dL (12.0-16.0); LYMPHOCYTES # (AUTO) 1.8 10^3/uL (1.5-3.5); LYMPHOCYTES % (AUTO) 36.8 %; MEAN CORPUSCULAR HEMOGLOBIN 25.6 pg (27.0-31.0); MEAN CORPUSCULAR HGB CONC 29.2 g/dL (32.0-36.0); MEAN CORPUSCULAR VOLUME 87.8 fL (81.0-99.0); MEAN PLATELET VOLUME 10.6 fL (7.9-10.8); MONOCYTES # (AUTO) 0.5 10^3/uL (0.0-1.0); MONOCYTES % (AUTO) 9.7 %; NEUTROPHILS # (AUTO) 2.5 10^3/uL (1.5-6.6); NEUTROPHILS % (AUTO) 50.6 %; PLT - PLATELET COUNT 190 10^3/uL (130-450); RED BLOOD COUNT 4.02 10^6/uL (4.20-5.40); RED CELL DISTRIBUTION WIDTH 18.1 % (12.0-15.0); RETICULOCYTE COUNT % (AUTO) 2.92 % (0.5-2.3); WHITE BLOOD COUNT 4.8 x10^3/uL (4.8-10.8)
[2020-12-29 18:08] LABS: CREATININE,URINE 177.5 mg/dL; MICROALBUM/CREATININE RATIO,UR 1.1 ug/mg (<30.0); MICROALBUMIN,URINE 0.2 mg/dL (0-300.0)
[2020-12-29 18:09] LABS: CALCIUM 9.6 mg/dL (8.5-10.3); CREATININE 0.6 mg/dL (0.4-1.0); POTASSIUM 4.3 mmol/L (3.5-5.0)
[2020-12-29 18:25] LABS: FERRITIN 17.4 ng/mL (11.0-306.8)
[2020-12-29 18:29] LABS: FOLATE 8.79 ng/mL (5.90 - >24.8)
[2020-12-29 19:57] LABS: ESTIMATED AVERAGE GLUCOSE 148 mg/dL (70-100); HEMOGLOBIN A1c% 6.8 % (4.27-6.07)
== END 2020-12-29 23:59 | disposition home or self-care (01) ==
LOC: LAB.WCP 08:00
PROVIDERS: ATTEND Registered Nurse
DX: E11.9 Type 2 diabetes mellitus without complications (principal); D64.9 Anemia, unspecified
CPT/HCPCS: 36415; 80048; 81599; 82043; 82570; 82607; 82728; 82746; 83020; 83036; 83540; 84466; 85014; 85018; 85025; 85041; 85045

== ENCOUNTER 2021-06-06 22:49 | Outpatient (CLI) | payer MEDICAID | END 2021-06-06 22:50 | disposition critical access hospital (66) | LOC: EMS 22:49 | DX: R73.9 Hyperglycemia, unspecified (principal) | CPT/HCPCS: A0425; A0427; A0999 ==

== ENCOUNTER 2021-06-06 23:05 | Emergency (ER) | payer MEDICAID ==
[2021-06-06 23:47] LABS: BILIRUBIN,URINE NEGATIVE (NEGATIVE); GLUCOSE, URINE (UA) >=1000 mg/dL (NEGATIVE); KETONES,URINE (UA) NEGATIVE (NEGATIVE); LEUKOCYTE ESTERASE, URINE NEGATIVE (NEGATIVE); NITRITE,URINE NEGATIVE (NEGATIVE); OCCULT BLOOD,URINE SMALL (NEGATIVE); PROTEIN,URINE NEGATIVE (NEGATIVE); UROBILINOGEN,URINE 0.2 (NORMAL) E.U./dL (NORMAL)
[2021-06-06 23:48] LABS: BASOPHILS % (AUTO) 0.4 %; EOSINOPHILS # (AUTO) 0.1 10^3/uL (0.0-0.7); EOSINOPHILS % (AUTO) 1.5 %; HCT - HEMATOCRIT 40.9 % (37.0-47.0); HGB - HEMOGLOBIN 13.3 g/dL (12.0-16.0); LYMPHOCYTES # (AUTO) 1.9 10^3/uL (1.5-3.5); LYMPHOCYTES % (AUTO) 36.9 %; MEAN CORPUSCULAR HEMOGLOBIN 29.6 pg (27.0-31.0); MEAN CORPUSCULAR HGB CONC 32.5 g/dL (32.0-36.0); MEAN CORPUSCULAR VOLUME 91.1 fL (81.0-99.0); MEAN PLATELET VOLUME 11.3 fL (7.9-10.8); MONOCYTES # (AUTO) 0.4 10^3/uL (0.0-1.0); MONOCYTES % (AUTO) 8.1 %; NEUTROPHILS # (AUTO) 2.7 10^3/uL (1.5-6.6); NEUTROPHILS % (AUTO) 52.7 %; PLT - PLATELET COUNT 142 10^3/uL (130-450); RED BLOOD COUNT 4.49 10^6/uL (4.20-5.40); RED CELL DISTRIBUTION WIDTH 13.9 % (12.0-15.0); WHITE BLOOD COUNT 5.2 x10^3/uL (4.8-10.8)
[2021-06-06 23:52] LABS: CLARITY,URINE CLEAR (CLEAR)
[2021-06-07] LABS: BACTERIA,URINE Rare /HPF (None Seen); RBC,URINE 0-5 /HPF (0-5); SQUAMOUS EPITHELIAL CELL,UR RARE Squamous (<= Few); WBC,URINE 0-3 /HPF (0-5)
[2021-06-07 00:07] LABS: ALBUMIN 3.7 g/dL (3.2-5.5); ALBUMIN/GLOBULIN RATIO 0.8 (1.0-2.2); BILIRUBIN,TOTAL 0.6 mg/dL (0.2-1.0); CALCIUM 9.3 mg/dL (8.5-10.3); CREATININE 0.8 mg/dL (0.4-1.0); POTASSIUM 4.3 mmol/L (3.5-5.0); TOTAL PROTEIN 8.2 g/dL (6.7-8.2)
[2021-06-07 00:07] LABS: KETONES, SERUM (ACETEST) NEGATIVE (NEGATIVE)
[2021-06-07 00:10] LABS: ETOH - ETHANOL < 5.0 mg/dL
[2021-06-07] MEDS ORDERED: MORPHINE 2 MG/ML CARPUJECT IVP STA (00:10)
[2021-06-07] MEDS ORDERED: SODIUM CHLORIDE 0.9% 1,000 ML IV STA ×2 (00:10→01:40)
[2021-06-07] MEDS ORDERED: KETOROLAC 30 MG/ML VIAL IVP STA (00:10)
[2021-06-07] MEDS ORDERED: INSULIN REGULAR HUMAN 100 UNIT/1 ML 10 ML MDV SUBQ STA ×2 (00:11→01:40)
[2021-06-07 00:15] LABS: VBG BASE EXCESS -0.3 mmol/L (-2 - +2); VBG HCO3 24.8 mmol/L (23-28); VBG OXYGEN SATURATION 96.1 % (60-80); VBG PCO2 42.1 mmHg (41-51); VBG PH 7.388 (7.31-7.41); VBG TOTAL CO2 26.1 mmol/L (24-29)
[2021-06-07 00:19] LABS: MUDS CUTOFF CONCENTRATIONS CUTOFF CONC BELOW:
[2021-06-07 00:19] LABS: INR 1.1 (0.8-1.2); PT - PROTHROMBIN TIME 11.8 secs (9.9-12.6)
[2021-06-07 00:42] LABS: AMPHETAMINE SCREEN,URINE NEGATIVE (NEGATIVE); BARBITURATE SCREEN,UR NEGATIVE (NEGATIVE); BENZODIAZEPINES SCREEN, URINE NEGATIVE (NEGATIVE); COCAINE SCREEN URINE NEGATIVE (NEGATIVE); METHADONE SCREEN, URINE NEGATIVE (NEGATIVE); METHAMPHETAMINES SCREEN, URINE NEGATIVE (NEGATIVE); OPIATE SCREEN, URINE NEGATIVE (NEGATIVE); OXYCODONE SCREEN, URINE NEGATIVE (NEGATIVE); PROPOXYPHENE SCREEN, URINE NEGATIVE (NEGATIVE); THC CANNABINOID SCREEN, URINE NEGATIVE (NEGATIVE); TRICYCLIC ANTIDEPRESSANT,URINE POSITIVE (NEGATIVE)
--- NOTE | 2021-06-07 03:12 | ED Physician Documentation ---
History of Present Illness - Stated complaint Stated Complaint: HIGH BLOOD SUGAR - Chief complaint Chief Complaint: General - History obtained from History obtained from: Patient - Additonal information Additional information: Is 55-year-old female presenting with chief complaint of headache and elevated blood sugars. Check blood sugar at home and found her greater than 600. Reports normal blood sugars range in the 200s. Endorses for regular use of her nightly Lantus, with last use this evening as well as taking her regularly prescribed Metformin. Also states that she has been indulging in several high sugar and carbohydrate foods such as milkshakes recently. Denies any fever, chills, chest pain, shortness of breath, abdominal pain, nausea, vomiting, diarrhea, constipation. Review of Systems Ten Systems: 10 systems reviewed and negative Constitutional: denies: Fever Eyes: denies: Loss of vision Ears: denies: Loss of hearing Nose: denies: Rhinorrhea / runny nose Throat: denies: Dental pain / toothache Cardiac: denies: Chest pain / pressure Respiratory: denies: Dyspnea GI: denies: Abdominal Pain : denies: Dysuria Skin: denies: Rash Musculoskeletal: denies: Neck pain, Back pain, Extremity pain, Joint pain Neurologic: reports: Headache. denies: Generalized weakness, Numbness, Difficulty speaking, Near syncope, Syncope, Seizure, Confused, Altered mental status, Head injury, LOC PD PAST MEDICAL HISTORY - Past Medical History Past Medical History: Yes Cardiovascular: None, High cholesterol Respiratory: Asthma, Sleep apnea, Other Neuro: None Endocrine/Autoimmune: Type 2 diabetes GI: GERD, Hepatitis NECK PINNER: None : None HEENT: None Psych: Anxiety, Bipolar disorder, Other Musculoskeletal: Osteoarthritis, Chronic back pain, Other Derm: None - Past Surgical History Past Surgical History: Yes General: Cholecystectomy, Appendectomy Ortho: Hip replacement, Knee replacement, Other HEENT: Tonsil/Adenoidectomy - Present Medications Home Medications: Ambulatory Orders Medication Instructions Recorded Confirmed QUEtiapine [SEROquel] 500 mg PO DAILY PM 03/01/15 06/07/21 Cetirizine [ZyrTEC] 10 mg PO DAILY 04/03/15 06/07/21 Omeprazole [PriLOSEC] 20 mg PO DAILY 04/03/15 06/07/21 Gabapentin 1,600 mg PO BID 02/14/17 06/07/21 Insulin Glargine [Lantus Solostar] 27 unit SQ QDDINNER 02/14/18 06/07/21 Metformin HCl 1,000 mg PO BID 02/14/18 06/07/21 Ferrous Sulfate 325 mg PO TID #90 12/13/20 06/07/21 HYDROcod/ACETAM 5/325 [[place] 5/325] 1 - 2 tab PO Q6H PRN #15 tablet 12/13/20 06/07/21 - Allergies Allergies/Adverse Reactions: Allergies Allergy/AdvReac Type Severity Reaction Status Date / Time Penicillins Allergy Intermediate Edema Verified 06/06/21 23:18 - Social History Does the pt smoke?: No Smoking Status: Never smoker Does the pt drink ETOH?: No Does the pt have substance abuse?: No - Immunizations Immunizations are current?: Yes Immunizations: TDAP >10years/unknown - POLST Patient has POLST: No PD ED PE NORMAL - Vitals Vital signs reviewed: Yes - General General: Alert and oriented X 3, No acute distress - HEENT HEENT: Atraumatic, PERRL, Moist mucous membranes - Neck Neck: Supple, no meningeal sign, No bony TTP, No adenopathy, No JVD - Cardiac Cardiac: RRR, No gallop, Strong equal pulses - Respiratory Respiratory: No respiratory distress - Abdomen Abdomen: Normal bowel sounds, Non tender - Female Female : Deferred - Rectal Rectal: Deferred - Back Back: No CVA TTP - Extremities Extremities: No deformity, No tenderness to palpate, No edema, No calf tenderness / cord - Neuro Neuro: Alert and oriented X 3, 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, No motor deficit, No sensory deficit, Normal speech - Psych Psych: Normal mood Results - Vitals Vitals: Vital Signs - 24 hr 06/06/21 06/06/21 06/07/21 23:07 23:43 00:13 Temperature 36.4 C L Heart Rate 111 H 92 93 Respiratory 24 16 20 Rate Blood Pressure 152/86 H 152/86 H 138/86 H O2 Saturation 94 06/07/21 06/07/21 06/07/21 02:00 02:30 03:00 Temperature Heart Rate 107 H 108 H 103 H Respiratory 21 22 21 Rate Blood Pressure 133/89 H 107/66 O2 Saturation 93 92 93 06/07/21 06/07/21 03:12 03:25 Temperature 36.8 C Heart Rate 99 Respiratory 20 Rate Blood Pressure 106/62 129/63 O2 Saturation 95 Oxygen O2 Source Room air - EKG (time done) 0035 Other comments: Other comments (S rhythm with rate 108 bpm. Normal axis. Normal [place], QRS intervals. QTc borderline at 494. No ST segment elevations or T wave inversions.) - Labs Labs: Laboratory Tests 06/06/21 06/06/21 06/06/21 12:00 12:00 12:00 WBC RBC Hgb Hct MCV MCH MCHC RDW Plt Count MPV Neut # (Auto) Lymph # (Auto) [place] # (Auto) Eos # (Auto) Baso # (Auto) Absolute Nucleated RBC Nucleated RBC % PT 11.8 INR 1.1 VBG pH 7.388 VBG pCO2 42.1 VBG pO2 85.0 H VBG HCO3 24.8 VBG Total CO2 26.1 VBG O2 Saturation 96.1 H VBG Base Excess -0.3 Sodium Potassium Chloride Carbon Dioxide Anion Gap BUN Creatinine Estimated GFR (MDRD) Glucose Lactic Acid 2.9 H Calcium Total Bilirubin AST ALT Alkaline Phosphatase Total Protein Albumin Globulin Albumin/Globulin Ratio Lipase Urine Color Urine Clarity Urine pH Ur Specific Normal Urine Protein Urine Glucose (UA) Urine Ketones Urine Occult Blood Urine Nitrite Urine Bilirubin Urine Urobilinogen Ur Leukocyte Esterase Urine RBC Urine WBC Ur Squamous Epith Cells Urine Bacteria Ur Microscopic Review Urine Culture Comments Urine Opiates Screen Ur Oxycodone Screen Urine Methadone Screen Ur Propoxyphene Screen Ur Barbiturates Screen Ur Tricyclics Screen Ur Phencyclidine Scrn Ur Amphetamine Screen U Methamphetamines Scrn U Benzodiazepines Scrn Urine Cocaine Screen U Cannabinoids Screen Ethyl Alcohol Serum Ketones 06/06/21 06/06/21 06/06/21 23:30 23:39 23:39 WBC 5.2 RBC 4.49 Hgb 13.3 Hct 40.9 MCV 91.1 MCH 29.6 MCHC 32.5 RDW 13.9 Plt Count 142 MPV 11.3 H Neut # (Auto) 2.7 Lymph # (Auto) 1.9 [place] # (Auto) 0.4 Eos # (Auto) 0.1 Baso # (Auto) 0.0 Absolute Nucleated RBC 0.00 Nucleated RBC % 0.0 PT INR VBG pH VBG pCO2 VBG pO2 VBG HCO3 VBG Total CO2 VBG O2 Saturation VBG Base Excess Sodium 128 L Potassium 4.3 Chloride 91 L Carbon Dioxide 26 Anion Gap 11.0 BUN 11 Creatinine 0.8 Estimated GFR (MDRD) 74 L Glucose 666 H* Lactic Acid Calcium 9.3 Total Bilirubin 0.6 AST 83 H ALT 52 Alkaline Phosphatase 341 H Total Protein 8.2 Albumin 3.7 Globulin 4.5 H Albumin/Globulin Ratio 0.8 L Lipase 30 Urine Color YELLOW Urine Clarity CLEAR Urine pH 5.0 Ur Specific Normal <=1.005 Urine Protein NEGATIVE Urine Glucose (UA) >=1000 H Urine Ketones NEGATIVE Urine Occult Blood SMALL H Urine Nitrite NEGATIVE Urine Bilirubin NEGATIVE Urine Urobilinogen 0.2 (NORMAL) Ur Leukocyte Esterase NEGATIVE Urine RBC 0-5 Urine WBC 0-3 Ur Squamous Epith Cells RARE Squamous Urine Bacteria Rare Ur Microscopic Review INDICATED Urine Culture Comments NOT INDICATED Urine Opiates Screen Ur Oxycodone Screen Urine Methadone Screen Ur Propoxyphene Screen Ur Barbiturates Screen Ur Tricyclics Screen Ur Phencyclidine Scrn Ur Amphetamine Screen U Methamphetamines Scrn U Benzodiazepines Scrn Urine Cocaine Screen U Cannabinoids Screen Ethyl Alcohol Serum Ketones 06/06/21 06/07/21 23:47 00:18 WBC RBC Hgb Hct MCV MCH MCHC RDW Plt Count MPV Neut # (Auto) Lymph # (Auto) [place] # (Auto) Eos # (Auto) Baso # (Auto) Absolute Nucleated RBC Nucleated RBC % PT INR VBG pH VBG pCO2 VBG pO2 VBG HCO3 VBG Total CO2 VBG O2 Saturation VBG Base Excess Sodium Potassium Chloride Carbon Dioxide Anion Gap BUN Creatinine Estimated GFR (MDRD) Glucose Lactic Acid Calcium Total Bilirubin AST ALT Alkaline Phosphatase Total Protein Albumin Globulin Albumin/Globulin Ratio Lipase Urine Color Urine Clarity Urine pH Ur Specific Normal Urine Protein Urine Glucose (UA) Urine Ketones Urine Occult Blood Urine Nitrite Urine Bilirubin Urine Urobilinogen Ur Leukocyte Esterase Urine RBC Urine WBC Ur Squamous Epith Cells Urine Bacteria Ur Microscopic Review Urine Culture Comments Urine Opiates Screen NEGATIVE Ur Oxycodone Screen NEGATIVE Urine Methadone Screen NEGATIVE Ur Propoxyphene Screen NEGATIVE Ur Barbiturates Screen NEGATIVE Ur Tricyclics Screen POSITIVE H Ur Phencyclidine Scrn NEGATIVE Ur Amphetamine Screen NEGATIVE U Methamphetamines Scrn NEGATIVE U Benzodiazepines Scrn NEGATIVE Urine Cocaine Screen NEGATIVE U Cannabinoids Screen NEGATIVE Ethyl Alcohol < 5.0 Serum Ketones NEGATIVE PD MEDICAL DECISION MAKING - ED course Complexity details: re-evaluated patient, d/w patient ED course: Patient is a 55-year-old female with known history of type 2 diabetes, hypertension, dyslipidemia presenting to the emergency department today with headache as well as elevated blood sugar. Patient did endorse for a headache at both of her temples. It was not maximal at time of onset, there was no associated loss of consciousness, nuchal rigidity and her neurologic exam was nonfocal nonlateralizing. She did report compliance with her regular blood sugar medications however also reported that she had been having increased high carbohydrate and sugary foods over the course of the last few days. Arrival to the emergency department initial blood sugar was 666. There was no indication of diabetic ketoacidosis and the remainder of her labs were generally within normal limits with the exception of a A mild hyponatremia, likely an artifact due to her hyperglycemia. She was given Toradol, small dose of morphine and IV hydration as well as insulin in the emergency department. She was given multiple doses of insulin and her blood sugar was monitored carefully for several hours and while still elevated at the time of discharge was downtrending. I encouraged her to continue her regular diabetic medications as well as to a adhere to a strict diabetic diet and follow-up carefully with primary care. Otherwise clear return precautions and follow-up instructions were given prior to discharge. Departure - Departure Disposition: 01 Home, Self Care Clinical Impression: Hyperglycemia, Morbid obesity Condition: Good Instructions: ED Diet Diabetic Comments: Thank You for allowing us to care for you today at [facility]. Your blood sugar does appear to be trending in the right direction. Please c ontinue to take all of your previous diabetic medications as prescribed. I have attached some information about a diabetic diet. It is important that you follow some of these recommendations particularly in the next few days in order to prevent a rebound of elevated blood sugar. I recommend modest physical activity as this can also help to manage chronically elevated blood sugar. Please follow-up with your primary care doctor first thing on Tuesday in order to make an appointment for medical recheck. If it anytime you feel you are having new or worsening symptoms or if your blood sugars become severely elevated again at home please not hesitate to return. Discharge Date/Time: 06/07/21 03:30
[2021-06-07 03:47] VITALS: BP 129/63
== END 2021-06-07 03:30 | disposition home or self-care (01) ==
LOC: EDUNIT# → ED 23:05
DX: E11.65 Type 2 diabetes mellitus with hyperglycemia (principal); Z79.4 Long term (current) use of insulin; Z79.84 Long term (current) use of oral hypoglycemic drugs; E87.1 Hypo-osmolality and hyponatremia; R51.9 Headache, unspecified; E66.01 Morbid (severe) obesity due to excess calories; Z68.43 Body mass index [BMI] 50.0-59.9, adult; I10 Essential (primary) hypertension; E78.5 Hyperlipidemia, unspecified
CPT/HCPCS: 36415; 80053; 80306; 80320; 81001; 82009; 82803; 83605; 83690; 85025; 85610; 93005; 96361; 96374; 99283; 99284; J1815; 81003; 87086

== ENCOUNTER 2021-08-19 16:37 | Emergency (ER) | payer MEDICAID ==
[2021-08-19] MEDS ORDERED: SODIUM CHLORIDE 0.9% 1,000 ML IV STA (17:13)
--- NOTE | 2021-08-19 17:31 | ED Physician Documentation ---
History of Present Illness - Stated complaint Stated Complaint: HBP/SOA/HEADACHE - Chief complaint Chief Complaint: General - History obtained from History obtained from: Patient - History of Present Illness Timing: Today Pain level max: 0 Pain level now: 0 - Additonal information Additional information: Patient is a 55-year-old female who presents to the emergency department stating that her blood sugar became high today at home. She states her normal blood sugar is 2-300. She took it this afternoon and noticed it was too high to read on the monitor. No abdominal pain. No nausea or vomiting. No headache. No dyspnea. No chest pain. Similar symptoms occurred a few months ago. She states that she is following up with endocrinology and frame changer. 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 : None HEENT: None Psych: Anxiety, Bipolar disorder, Other Musculoskeletal: Osteoarthritis, Chronic back pain, Other Derm: None - Past Surgical History Past Surgical History: Yes General: Cholecystectomy, Appendectomy Ortho: Hip replacement, Knee replacement, Other HEENT: Tonsil/Adenoidectomy - Present Medications Home Medications: Ambulatory Orders Medication Instructions Recorded Confirmed QUEtiapine [SEROquel] 500 mg PO DAILY PM 03/01/15 06/07/21 Cetirizine [ZyrTEC] 10 mg PO DAILY 04/03/15 06/07/21 Omeprazole [PriLOSEC] 20 mg PO DAILY 04/03/15 06/07/21 Gabapentin 1,600 mg PO BID 02/14/17 06/07/21 Insulin Glargine [Lantus Solostar] 27 unit SQ QDDINNER 02/14/18 06/07/21 Metformin HCl 1,000 mg PO BID 02/14/18 06/07/21 Ferrous Sulfate 325 mg PO TID #90 12/13/20 06/07/21 HYDROcod/ACETAM 5/325 [[place] 5/325] 1 - 2 tab PO Q6H PRN #15 tablet 12/13/20 06/07/21 - Allergies Allergies/Adverse Reactions: Allergies Allergy/AdvReac Type Severity Reaction Status Date / Time Penicillins Allergy Intermediate Edema Verified 08/19/21 16:44 - Social History Does the pt smoke?: No Smoking Status: Never smoker Does the pt drink ETOH?: No Does the pt have substance abuse?: No - Immunizations Immunizations are current?: Yes Immunizations: TDAP >10years/unknown - POLST Patient has POLST: No PD ED PE NORMAL - Vitals Vital signs reviewed: Yes - General General: Alert and oriented X 3, No acute distress - HEENT HEENT: Moist mucous membranes - Neck Neck: Supple, no meningeal sign - Cardiac Cardiac: RRR, Strong equal pulses - Respiratory Respiratory: No respiratory distress, Clear bilaterally - Abdomen Abdomen: Soft, Non tender, Non distended - Derm Derm: Warm and dry - Extremities Extremities: No calf tenderness / cord - Neuro Neuro: Alert and oriented X 3 - Psych Psych: Normal mood, Normal affect Results - Vitals Vitals: Vital Signs - 24 hr 08/19/21 08/19/21 08/19/21 16:44 17:59 18:00 Temperature 36.6 C 36.9 C Heart Rate 106 H 99 96 Respiratory 20 18 24 Rate Blood Pressure 96/84 H 127/78 135/74 H O2 Saturation 95 95 96 08/19/21 08/19/21 18:30 20:10 Temperature 37.2 C Heart Rate 88 89 Respiratory 19 18 Rate Blood Pressure 144/59 H 119/86 H O2 Saturation 96 98 Oxygen O2 Source Room air - Labs Labs: Laboratory Tests 08/19/21 08/19/21 08/19/21 17:19 17:24 17:24 WBC 5.1 RBC 4.50 Hgb 13.5 Hct 40.7 MCV 90.4 MCH 30.0 MCHC 33.2 RDW 13.3 Plt Count 125 L MPV 10.8 Neut # (Auto) 2.8 Lymph # (Auto) 1.8 [place] # (Auto) 0.4 Eos # (Auto) 0.0 Baso # (Auto) 0.0 Absolute Nucleated RBC 0.00 Nucleated RBC % 0.0 VBG pH VBG pCO2 VBG pO2 VBG HCO3 VBG Total CO2 VBG O2 Saturation VBG Base Excess Sodium 133 L Potassium 4.2 Chloride 95 L Carbon Dioxide 27 Anion Gap 11.0 BUN 8 Creatinine 0.8 Estimated GFR (MDRD) 74 L Glucose 623 H* POC Whole Bld Glucose Estimat Average Glucose Hemoglobin A1c % Calcium 9.4 Total Bilirubin 0.9 AST 75 H ALT 68 H Alkaline Phosphatase 317 H Total Protein 8.3 H Albumin 3.9 Globulin 4.4 H Albumin/Globulin Ratio 0.9 L Lipase 27 Urine Color YELLOW Urine Clarity CLEAR Urine pH 5.0 Ur Specific [place] <=1.005 Urine Protein NEGATIVE Urine Glucose (UA) >=1000 H Urine Ketones NEGATIVE Urine Occult Blood NEGATIVE Urine Nitrite NEGATIVE Urine Bilirubin NEGATIVE Urine Urobilinogen 0.2 (NORMAL) Ur Leukocyte Esterase NEGATIVE Ur Microscopic Review NOT INDICATED Urine Culture Comments NOT INDICATED Serum Ketones NEGATIVE 08/19/21 08/19/21 08/19/21 17:24 17:24 18:52 WBC RBC Hgb Hct MCV MCH MCHC RDW Plt Count MPV Neut # (Auto) Lymph # (Auto) [place] # (Auto) Eos # (Auto) Baso # (Auto) Absolute Nucleated RBC Nucleated RBC % VBG pH 7.407 VBG pCO2 42.8 VBG pO2 69.4 H VBG HCO3 26.3 VBG Total CO2 27.7 VBG O2 Saturation 94.1 H VBG Base Excess 1.4 Sodium Potassium Chloride Carbon Dioxide Anion Gap BUN Creatinine Estimated GFR (MDRD) Glucose POC Whole Bld Glucose 494 H Estimat Average Glucose 318 H Hemoglobin A1c % 12.7 H Calcium Total Bilirubin AST ALT Alkaline Phosphatase Total Protein Albumin Globulin Albumin/Globulin Ratio Lipase Urine Color Urine Clarity Urine pH Ur Specific [place] Urine Protein Urine Glucose (UA) Urine Ketones Urine Occult Blood Urine Nitrite Urine Bilirubin Urine Urobilinogen Ur Leukocyte Esterase Ur Microscopic Review Urine Culture Comments Serum Ketones 08/19/21 19:41 WBC RBC Hgb Hct MCV MCH MCHC RDW Plt Count MPV Neut # (Auto) Lymph # (Auto) [place] # (Auto) Eos # (Auto) Baso # (Auto) Absolute Nucleated RBC Nucleated RBC % VBG pH VBG pCO2 VBG pO2 VBG HCO3 VBG Total CO2 VBG O2 Saturation VBG Base Excess Sodium Potassium Chloride Carbon Dioxide Anion Gap BUN Creatinine Estimated GFR (MDRD) Glucose POC Whole Bld Glucose 457 H Estimat Average Glucose Hemoglobin A1c % Calcium Total Bilirubin AST ALT Alkaline Phosphatase Total Protein Albumin Globulin Albumin/Globulin Ratio Lipase Urine Color Urine Clarity Urine pH Ur Specific [place] Urine Protein Urine Glucose (UA) Urine Ketones Urine Occult Blood Urine Nitrite Urine Bilirubin Urine Urobilinogen Ur Leukocyte Esterase Ur Microscopic Review Urine Culture Comments Serum Ketones PD MEDICAL DECISION MAKING - ED course Complexity details: reviewed results, re-evaluated patient, considered differential, d/w patient ED course: Patient given IV fluids and insulin. Blood sugar decreased. Patient is asymptomatic. Request to go home at this time. She will follow up with her doctor for further care. Patient counseled regarding signs and symptoms for which I believe and urgent re-evaluation would be necessary. Patient with good understanding of and agreement to plan and is comfortable going home at this time This document was made in part using voice recognition software. While efforts are made to proofread this document, sound alike and grammatical errors may occur. Departure - Departure Disposition: 01 Home, Self Care Clinical Impression: Hyperglycemia due to diabetes mellitus Condition: Good Instructions: ED Hyperglycemia Diabetic Follow-Up: Joanne Pace ARNP [Primary Care Provider] - Within 1 week Comments: Continue your current medications at home. Follow-up with your doctor tomorrow to discuss if you need to adjust any of your medications. Return if you worsen Discharge Date/Time: 08/19/21 20:10
[2021-08-19 17:32] LABS: BASOPHILS % (AUTO) 0.6 %; EOSINOPHILS % (AUTO) 0.8 %; HCT - HEMATOCRIT 40.7 % (37.0-47.0); HGB - HEMOGLOBIN 13.5 g/dL (12.0-16.0); LYMPHOCYTES # (AUTO) 1.8 10^3/uL (1.5-3.5); LYMPHOCYTES % (AUTO) 35.2 %; MEAN CORPUSCULAR HGB CONC 33.2 g/dL (32.0-36.0); MEAN CORPUSCULAR VOLUME 90.4 fL (81.0-99.0); MEAN PLATELET VOLUME 10.8 fL (7.9-10.8); MONOCYTES # (AUTO) 0.4 10^3/uL (0.0-1.0); MONOCYTES % (AUTO) 7.5 %; NEUTROPHILS # (AUTO) 2.8 10^3/uL (1.5-6.6); NEUTROPHILS % (AUTO) 55.7 %; PLT - PLATELET COUNT 125 10^3/uL (130-450); RED CELL DISTRIBUTION WIDTH 13.3 % (12.0-15.0); WHITE BLOOD COUNT 5.1 x10^3/uL (4.8-10.8)
[2021-08-19 17:33] LABS: VBG PCO2 42.8 mmHg (41-51); VBG PH 7.407 (7.31-7.41)
[2021-08-19 17:34] LABS: VBG BASE EXCESS 1.4 mmol/L (-2 - +2); VBG HCO3 26.3 mmol/L (23-28); VBG OXYGEN SATURATION 94.1 % (60-80); VBG PO2 69.4 mmHg (25-47); VBG TOTAL CO2 27.7 mmol/L (24-29)
[2021-08-19 17:39] LABS: KETONES, SERUM (ACETEST) NEGATIVE (NEGATIVE)
[2021-08-19 17:40] LABS: BILIRUBIN,URINE NEGATIVE (NEGATIVE); GLUCOSE, URINE (UA) >=1000 mg/dL (NEGATIVE); KETONES,URINE (UA) NEGATIVE (NEGATIVE); LEUKOCYTE ESTERASE, URINE NEGATIVE (NEGATIVE); NITRITE,URINE NEGATIVE (NEGATIVE); OCCULT BLOOD,URINE NEGATIVE (NEGATIVE); PROTEIN,URINE NEGATIVE (NEGATIVE); UROBILINOGEN,URINE 0.2 (NORMAL) E.U./dL (NORMAL)
[2021-08-19 17:42] LABS: CLARITY,URINE CLEAR (CLEAR)
[2021-08-19 17:50] LABS: ALBUMIN 3.9 g/dL (3.2-5.5); ALBUMIN/GLOBULIN RATIO 0.9 (1.0-2.2); ALKALINE PHOSPHATASE 317 IU/L (42-121); ALT ALANINE AMINOTRANSFERASE 68 IU/L (10-60); AST ASPARTATE AMINOTRANSFERASE 75 IU/L (10-42); BILIRUBIN,TOTAL 0.9 mg/dL (0.2-1.0); BUN - BLOOD UREA NITROGEN 8 mg/dL (6-20); CALCIUM 9.4 mg/dL (8.5-10.3); CARBON DIOXIDE - CO2 27 mmol/L (21-32); CHLORIDE 95 mmol/L (101-111); CREATININE 0.8 mg/dL (0.4-1.0); GFR - MDRD 74 (>89); LIPASE 27 U/L (22-51); POTASSIUM 4.2 mmol/L (3.5-5.0); SODIUM 133 mmol/L (135-145); TOTAL PROTEIN 8.3 g/dL (6.7-8.2)
[2021-08-19 17:51] LABS: GLUCOSE 623 mg/dL (70-100)
[2021-08-19] MEDS ORDERED: INSULIN REGULAR HUMAN 100 UNIT/1 ML 10 ML MDV SUBQ STA (17:52)
[2021-08-19 20:11] VITALS: BP 119/86
[2021-08-19 20:32] LABS: ESTIMATED AVERAGE GLUCOSE 318 mg/dL (70-100); HEMOGLOBIN A1c% 12.7 % (4.27-6.07)
== END 2021-08-19 20:10 | disposition home or self-care (01) ==
LOC: ED 16:37
DX: E11.65 Type 2 diabetes mellitus with hyperglycemia (principal); Z79.4 Long term (current) use of insulin
CPT/HCPCS: 36415; 80053; 81003; 82009; 82803; 83036; 83690; 85025; 96360; 96361; 99283; J1815; 81001; 87086

== ENCOUNTER 2021-12-10 07:39 | Outpatient (CLI) | payer MEDICAID ==
[2021-12-10 11:51] LABS: ESTIMATED AVERAGE GLUCOSE 140 mg/dL (70-100); HEMOGLOBIN A1c% 6.5 % (4.27-6.07)
[2021-12-10 11:52] LABS: CHOL/HDL RATIO 3.5 (<4.4); CHOLESTEROL 177 mg/dL; HDL CHOLESTEROL 50 mg/dL; LDL CHOLESTEROL,CALCULATED 81 mg/dL; LDL/HDL RATIO 1.6 (<4.4); TRIGLYCERIDES 228 mg/dL; VLDL CHOLESTEROL 46 mg/dL
[2021-12-10 12:01] LABS: CREATININE,URINE 77.9 mg/dL; MICROALBUM/CREATININE RATIO,UR 23.1 ug/mg (<30.0); MICROALBUMIN,URINE 1.8 mg/dL (0-300.0)
== END 2021-12-10 07:40 | disposition home or self-care (01) ==
LOC: LAB.N 07:39
PROVIDERS: ATTEND Nurse Practitioner
DX: E11.65 Type 2 diabetes mellitus with hyperglycemia (principal)
CPT/HCPCS: 36415; 80061; 82043; 82570; 83036; 83721

== ENCOUNTER 2022-03-15 18:24 | Outpatient (CLI) | payer MEDICAID | END 2022-03-15 18:25 | disposition EMS.NT | LOC: EMS 18:24 | DX: Z03.89 Encounter for observation for other suspected diseases and conditions ruled out (principal) ==

== ENCOUNTER 2022-05-02 22:09 | Emergency (ER) | payer MEDICAID ==
[2022-05-02] MEDS ORDERED: SODIUM CHLORIDE 0.9% 1,000 ML IV STA (22:53)
[2022-05-02 23:01] LABS: VBG BASE EXCESS 5.2 mmol/L (-2 - +2); VBG HCO3 30.5 mmol/L (23-28); VBG OXYGEN SATURATION 98.2 % (60-80); VBG PCO2 47.3 mmHg (41-51); VBG PH 7.427 (7.31-7.41); VBG PO2 110.6 mmHg (25-47); VBG TOTAL CO2 31.9 mmol/L (24-29)
[2022-05-02 23:03] LABS: BASOPHILS % (AUTO) 0.4 %; EOSINOPHILS # (AUTO) 0.1 10^3/uL (0.0-0.7); EOSINOPHILS % (AUTO) 2.2 %; HCT - HEMATOCRIT 40.8 % (37.0-47.0); LYMPHOCYTES # (AUTO) 1.5 10^3/uL (1.5-3.5); LYMPHOCYTES % (AUTO) 33.2 %; MEAN CORPUSCULAR HEMOGLOBIN 28.3 pg (27.0-31.0); MEAN CORPUSCULAR HGB CONC 31.9 g/dL (32.0-36.0); MEAN CORPUSCULAR VOLUME 88.9 fL (81.0-99.0); MEAN PLATELET VOLUME 11.1 fL (7.9-10.8); MONOCYTES # (AUTO) 0.4 10^3/uL (0.0-1.0); MONOCYTES % (AUTO) 9.1 %; NEUTROPHILS # (AUTO) 2.5 10^3/uL (1.5-6.6); NEUTROPHILS % (AUTO) 54.7 %; PLT - PLATELET COUNT 114 10^3/uL (130-450); RED BLOOD COUNT 4.59 10^6/uL (4.20-5.40); WHITE BLOOD COUNT 4.5 x10^3/uL (4.8-10.8)
[2022-05-02 23:19] LABS: KETONES, SERUM (ACETEST) NEGATIVE (NEGATIVE)
[2022-05-02 23:27] LABS: BILIRUBIN,URINE NEGATIVE (NEGATIVE); GLUCOSE, URINE (UA) >=1000 mg/dL (NEGATIVE); KETONES,URINE (UA) NEGATIVE (NEGATIVE); LEUKOCYTE ESTERASE, URINE NEGATIVE (NEGATIVE); NITRITE,URINE NEGATIVE (NEGATIVE); OCCULT BLOOD,URINE NEGATIVE (NEGATIVE); PROTEIN,URINE NEGATIVE (NEGATIVE); UROBILINOGEN,URINE 0.2 (NORMAL) E.U./dL (NORMAL)
[2022-05-02 23:28] LABS: CLARITY,URINE CLEAR (CLEAR)
[2022-05-02 23:31] LABS: ALBUMIN 3.9 g/dL (3.2-5.5); ALBUMIN/GLOBULIN RATIO 0.9 (1.0-2.2); ALKALINE PHOSPHATASE 361 IU/L (42-121); ALT ALANINE AMINOTRANSFERASE 142 IU/L (10-60); AST ASPARTATE AMINOTRANSFERASE 210 IU/L (10-42); BILIRUBIN,TOTAL 0.6 mg/dL (0.2-1.0); BUN - BLOOD UREA NITROGEN 6 mg/dL (6-20); CALCIUM 9.3 mg/dL (8.5-10.3); CARBON DIOXIDE - CO2 26 mmol/L (21-32); CHLORIDE 91 mmol/L (101-111); CREATININE 0.8 mg/dL (0.4-1.0); GFR - MDRD 74 (>89); LIPASE 40 U/L (22-51); SODIUM 129 mmol/L (135-145); TOTAL PROTEIN 8.1 g/dL (6.7-8.2)
[2022-05-02 23:33] LABS: GLUCOSE 531 mg/dL (70-100)
[2022-05-03] MEDS ORDERED: KETOROLAC 15 MG/ML VIAL IVP STA (04:24)
--- NOTE | 2022-05-03 04:28 | ED Physician Documentation ---
History of Present Illness - Stated complaint Stated Complaint: HIGH BLOOD SUGAR,DIZZY - Chief complaint Chief Complaint: General - Additonal information Additional information: 56-year-old woman with history of diabetes presents with intermittent lightheadedness and hyperglycemia this evening with her home glucometer reading "high". Patient also endorses increased urinary frequency and increased thirst. She endorses poor diet as of late and states that her sugars have been ranging in the 300s and 400s. 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 : None HEENT: None Psych: Anxiety, Bipolar disorder, Other Musculoskeletal: Osteoarthritis, Chronic back pain, Other Derm: None - Past Surgical History Past Surgical History: Yes General: Cholecystectomy, Appendectomy Ortho: Hip replacement, Knee replacement, Other HEENT: Tonsil/Adenoidectomy - Present Medications Home Medications: Ambulatory Orders Medication Instructions Recorded Confirmed QUEtiapine [SEROquel] 500 mg PO DAILY PM 03/01/15 06/07/21 Cetirizine [ZyrTEC] 10 mg PO DAILY 04/03/15 06/07/21 Omeprazole [PriLOSEC] 20 mg PO DAILY 04/03/15 06/07/21 Gabapentin 1,600 mg PO BID 02/14/17 06/07/21 Insulin Glargine [Lantus Solostar] 27 unit SQ QDDINNER 02/14/18 06/07/21 Metformin HCl 1,000 mg PO BID 02/14/18 06/07/21 Ferrous Sulfate 325 mg PO TID #90 12/13/20 06/07/21 HYDROcod/ACETAM 5/325 [[place] 5/325] 1 - 2 tab PO Q6H PRN #15 tablet 12/13/20 06/07/21 - Allergies Allergies/Adverse Reactions: Allergies Allergy/AdvReac Type Severity Reaction Status Date / Time Penicillins Allergy Intermediate Edema Verified 05/02/22 22:31 - Social History Does the pt smoke?: No Smoking Status: Never smoker Does the pt drink ETOH?: No Does the pt have substance abuse?: No - Immunizations Immunizations are current?: Yes Immunizations: TDAP >10years/unknown - POLST Patient has POLST: No PD ED PE NORMAL - Vitals Vital signs reviewed: Yes - General General: Alert and oriented X 3, No acute distress, Other (morbidly obese) - HEENT HEENT: Atraumatic, PERRL, EOMI, Moist mucous membranes, Pharynx benign - Neck Neck: Supple, no meningeal sign - Cardiac Cardiac: RRR - Respiratory Respiratory: No respiratory distress, Clear bilaterally - Abdomen Abdomen: Non tender, Non distended - Derm Derm: Normal color, Warm and dry - Extremities Extremities: No deformity - Neuro Neuro: Alert and oriented X 3, No motor deficit, No sensory deficit - Psych Psych: Normal mood, Normal affect Results - Vitals Vitals: Vital Signs - 24 hr 05/02/22 05/03/22 05/03/22 22:20 00:30 01:17 Temperature 36.8 C Heart Rate 94 103 H 100 Respiratory 18 18 16 Rate Blood Pressure 126/87 H 113/88 H 134/68 H O2 Saturation 95 93 94 05/03/22 01:33 Temperature Heart Rate 83 Respiratory 16 Rate Blood Pressure 128/87 H O2 Saturation 94 Oxygen O2 Source Room air - Labs Labs: Laboratory Tests 05/02/22 05/02/22 05/02/22 22:23 22:55 22:55 WBC 4.5 L RBC 4.59 Hgb 13.0 Hct 40.8 MCV 88.9 MCH 28.3 MCHC 31.9 L RDW 14.0 Plt Count 114 L MPV 11.1 H Neut # (Auto) 2.5 Lymph # (Auto) 1.5 [place] # (Auto) 0.4 Eos # (Auto) 0.1 Baso # (Auto) 0.0 Absolute Nucleated RBC 0.00 Nucleated RBC % 0.0 VBG pH 7.427 H VBG pCO2 47.3 VBG pO2 110.6 H VBG HCO3 30.5 H VBG Total CO2 31.9 H VBG O2 Saturation 98.2 H VBG Base Excess 5.2 H Sodium Potassium Chloride Carbon Dioxide Anion Gap BUN Creatinine Estimated GFR (MDRD) Glucose POC Whole Bld Glucose 546 H* Calcium Total Bilirubin AST ALT Alkaline Phosphatase Total Protein Albumin Globulin Albumin/Globulin Ratio Lipase Urine Color Urine Clarity Urine pH Ur Specific [place] Urine Protein Urine Glucose (UA) Urine Ketones Urine Occult Blood Urine Nitrite Urine Bilirubin Urine Urobilinogen Ur Leukocyte Esterase Ur Microscopic Review Urine Culture Comments Serum Ketones 05/02/22 05/02/22 05/03/22 22:55 23:11 02:00 WBC RBC Hgb Hct MCV MCH MCHC RDW Plt Count MPV Neut # (Auto) Lymph # (Auto) [place] # (Auto) Eos # (Auto) Baso # (Auto) Absolute Nucleated RBC Nucleated RBC % VBG pH VBG pCO2 VBG pO2 VBG HCO3 VBG Total CO2 VBG O2 Saturation VBG Base Excess Sodium 129 L Potassium 4.0 Chloride 91 L Carbon Dioxide 26 Anion Gap 12.0 BUN 6 Creatinine 0.8 Estimated GFR (MDRD) 74 L Glucose 531 H* POC Whole Bld Glucose 299 H Calcium 9.3 Total Bilirubin 0.6 AST 210 H ALT 142 H Alkaline Phosphatase 361 H Total Protein 8.1 Albumin 3.9 Globulin 4.2 Albumin/Globulin Ratio 0.9 L Lipase 40 Urine Color YELLOW Urine Clarity CLEAR Urine pH 6.0 Ur Specific [place] <=1.005 Urine Protein NEGATIVE Urine Glucose (UA) >=1000 H Urine Ketones NEGATIVE Urine Occult Blood NEGATIVE Urine Nitrite NEGATIVE Urine Bilirubin NEGATIVE Urine Urobilinogen 0.2 (NORMAL) Ur Leukocyte Esterase NEGATIVE Ur Microscopic Review NOT INDICATED Urine Culture Comments NOT INDICATED Serum Ketones NEGATIVE 05/03/22 03:29 WBC RBC Hgb Hct MCV MCH MCHC RDW Plt Count MPV Neut # (Auto) Lymph # (Auto) [place] # (Auto) Eos # (Auto) Baso # (Auto) Absolute Nucleated RBC Nucleated RBC % VBG pH VBG pCO2 VBG pO2 VBG HCO3 VBG Total CO2 VBG O2 Saturation VBG Base Excess Sodium Potassium Chloride Carbon Dioxide Anion Gap BUN Creatinine Estimated GFR (MDRD) Glucose POC Whole Bld Glucose 249 H Calcium Total Bilirubin AST ALT Alkaline Phosphatase Total Protein Albumin Globulin Albumin/Globulin Ratio Lipase Urine Color Urine Clarity Urine pH Ur Specific [place] Urine Protein Urine Glucose (UA) Urine Ketones Urine Occult Blood Urine Nitrite Urine Bilirubin Urine Urobilinogen Ur Leukocyte Esterase Ur Microscopic Review Urine Culture Comments Serum Ketones PD MEDICAL DECISION MAKING - ED course ED course: 56yF with pmh poorly controlled DM p/w hyperglycemia. No signs of DKA on labwork. patient well appearing, asymptomatic on exam, with improvement in glucose to 200s on rechecks. plan to dc home with pcp and endocrine f/u. return precautions given. Departure - Departure Disposition: , Self Care Clinical Impression: Hyperglycemia due to type 2 diabetes mellitus Condition: Stable Instructions: ED Diet Diabetic Comments: You were seen in the ED for high blood sugar and weakness. Please follow up with your diabetes and primary care providers and try to keep to a healthy diet low in simple sugars. Return to the ED if you have new or worsening symptoms or other concerns.
[2022-05-03 04:57] VITALS: BP 126/86
== END 2022-05-03 04:58 | disposition home or self-care (01) ==
LOC: ED 22:09
DX: E11.65 Type 2 diabetes mellitus with hyperglycemia (principal); Z79.4 Long term (current) use of insulin; Z79.84 Long term (current) use of oral hypoglycemic drugs
CPT/HCPCS: 36415; 80053; 81001; 81003; 82009; 82803; 83690; 85025; 87086; 96374; 99282

== ENCOUNTER 2022-05-28 11:35 | Emergency (ER) | payer MEDICAID ==
--- NOTE | 2022-05-28 12:24 | XRAY Report ---
PROCEDURE: Chest 1 View X-Ray INDICATIONS: c+ TECHNIQUE: One view of the chest was acquired. COMPARISON: Chest radiographs 06/27/2017. CTPA 12/13/2020. FINDINGS: Surgical changes and devices: None. Lungs and pleura: No pleural effusions or pneumothorax. Linear horizontal scarring or atelectasis is seen in the mid lung zones bilaterally. No acute consolidation. Mediastinum: Mediastinal contours appear normal. Heart size is normal. Bones and chest wall: No suspicious bony lesions. Overlying soft tissues appear unremarkable. IMPRESSION: No acute cardiopulmonary abnormality. Reviewed by: Jesus Jj MD on 05/28/2022 12:23 PM PST Approved by: Jesus Jj MD on 05/28/2022 12:23 PM PST Station ID: [id number]
[2022-05-28] MEDS ORDERED: MOLNUPIRAVIR PREPACK PO STA (12:35)
--- NOTE | 2022-05-28 12:38 | ED Physician Documentation ---
History of Present Illness - Stated complaint Stated Complaint: C+ - Chief complaint Chief Complaint: General - Additonal information Additional information: 56-year-old female presents emergency department requesting treatment for COVID- 19 infection as well as evaluation of rash. 3 days ago she began developing some cough and congestion. A rapid home COVID test was positive yesterday. At the same time she developed a generalized pruritic rash on her trunk and extremities. She is taken Benadryl with some moderate relief. She is doubly vaccinated as well as doubly boosted for COVID-19. Past medical history most significant for morbid obesity and hypertension. She is a former tobacco user. She denies any chest pain or significant dyspnea. On presentation she appears very well without hypoxia we do note a mild tachycardia which patient attributes to her itchiness and anxiety. Review of Systems Constitutional: denies: Fever, Chills Eyes: reports: Reviewed and negative Nose: reports: Rhinorrhea / runny nose, Congestion Throat: reports: Reviewed and negative. denies: Oral lesions / sores, Sore throat Cardiac: denies: Chest pain / pressure, Palpitations Respiratory: reports: Cough. 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 HEENT: None Psych: Anxiety, Bipolar disorder, Other Musculoskeletal: Osteoarthritis, Chronic back pain, Other Derm: None - Past Surgical History Past Surgical History: Yes General: Cholecystectomy, Appendectomy Ortho: Hip replacement, Knee replacement, Other HEENT: Tonsil/Adenoidectomy - Present Medications Home Medications: Ambulatory Orders Medication Instructions Recorded Confirmed QUEtiapine [SEROquel] 500 mg PO DAILY PM 03/01/15 06/07/21 Cetirizine [ZyrTEC] 10 mg PO DAILY 04/03/15 06/07/21 Omeprazole [PriLOSEC] 20 mg PO DAILY 04/03/15 06/07/21 Gabapentin 1,600 mg PO BID 02/14/17 06/07/21 Insulin Glargine [Lantus Solostar] 27 unit SQ QDDINNER 08/28/18 12/19/21 Metformin HCl 1,000 mg PO BID 02/14/18 06/07/21 Ferrous Sulfate 325 mg PO TID #90 12/13/20 06/07/21 HYDROcod/ACETAM 5/325 [[place] 5/325] 1 - 2 tab PO Q6H PRN #15 tablet 12/13/20 06/07/21 - Allergies Allergies/Adverse Reactions: Allergies Allergy/AdvReac Type Severity Reaction Status Date / Time Penicillins Allergy Intermediate Edema Verified 05/28/22 11:45 - Social History Does the pt smoke?: No Smoking Status: Never smoker Does the pt drink ETOH?: No Does the pt have substance abuse?: No - Immunizations Immunizations are current?: Yes Immunizations: TDAP >10years/unknown - POLST Patient has POLST: No PD ED PE NORMAL - General General: Alert and oriented X 3, No acute distress, Well developed/nourished (Morbidly obese) - HEENT HEENT: Atraumatic, Moist mucous membranes - Neck Neck: Supple, no meningeal sign, No adenopathy - Cardiac Cardiac: RRR (Tachycardic), No murmur, No gallop - Respiratory Respiratory: No respiratory distress, Clear bilaterally - Abdomen Abdomen: Normal bowel sounds, Soft - Derm Derm: Normal color, Warm and dry. No: No rash (Generalized maculopapular rash on anterior torso arms and lower legs. Nonvesicular. No petechiae.) - Extremities Extremities: No deformity, No tenderness to palpate, Normal ROM s pain - Neuro Neuro: Alert and oriented X 3, presiding judge 2-12 intact Eye Opening: Spontaneous Motor: Obeys Commands Verbal: Oriented GCS Score: 15 - Psych Psych: Normal mood Results - Vitals Vitals: Vital Signs - 24 hr 05/28/22 11:43 Temperature 36.9 C Heart Rate 131 H Respiratory 18 Rate Blood Pressure 128/89 H O2 Saturation 94 Oxygen O2 Source Room air - Rads (name of study) cxr Radiology: EMP read indepedently (My interpretation as well as that of the radiologist is no acute cardiopulmonary process) PD MEDICAL DECISION MAKING - ED course Complexity details: reviewed results, re-evaluated patient, considered differential, d/w patient ED course: Well-appearing though morbidly obese 56-year-old female presents emergency department requesting outpatient oral antiviral treatment for her COVID-19 infection. Also requesting evaluation of a pruritic rash that began yesterday when she tested positive. Despite obesity she has no hypoxia tachypnea or respiratory distress. Chest x- ray is free of findings to suggest pleural effusion or pneumonia. She is well-hydrated. Mildly tachycardic which she attributes to her anxiety. She is denying chest pain or shortness of air. She does have a maculopapular nonvesicular rash on her anterior torso and extremities. Nothing to suggest a vasculitis. She is advised to continue the Benadryl at home as well as her cetirizine. Molnupiravir was dispensed here from the emergency department(Patient is on a daily statin.) We discussed routine conservative care of COVID-19 as well as the emergent return precautions. Departure - Departure Disposition: Home, Self Care Clinical Impression: COVID-19, Rash and nonspecific skin eruption Condition: Stable Record reviewed to determine appropriate education?: Yes Comments: Belinda mendoza are seen today in the emergency department because a few days ago you began having cough and congestion and yesterday tested positive for COVID-19. You also developed a generalized itchy rash on your anterior torso arms and legs. There is no specific treatment for your rash though because it is itchy you can continue to take the Benadryl twice daily. You may benefit from cool showers or cool compresses in the area where you are most itchy. In order to manage the COVID-19 we are dispensing you an oral antiviral therapy called Molnupiravir that has FDA emergency use authorization treatment for COVID-19. Please take this according to the bottle instructions. I recommend that you continue to quarantine while you are on the Molnupiravir and remain in quarantine for at least 48 hours after you finish the medication. In general stay well-hydrated. You can take Tylenol or ibuprofen for any body aches. You can continue to take your usual medications. Return to the emergency department should you develop any sudden severe chest pain or severe shortness of air. Your chest x-ray today was normal without findings to suggest pneumonia
[2022-05-28 12:50] VITALS: BP 121/78
== END 2022-05-28 12:49 | disposition home or self-care (01) ==
LOC: ED 11:35
DX: U07.1 COVID-19 (principal); R21 Rash and other nonspecific skin eruption; R00.0 Tachycardia, unspecified; Z87.891 Personal history of nicotine dependence
CPT/HCPCS: 71045; 99282; 99283; J3490

== ENCOUNTER 2022-06-23 10:59 | Outpatient (CLI) | payer MEDICAID ==
[2022-06-23 21:57] LABS: ESTIMATED AVERAGE GLUCOSE 194 mg/dL (70-100); HEMOGLOBIN A1c% 8.4 % (4.27-6.07)
== END 2022-06-23 11:00 | disposition home or self-care (01) ==
LOC: LAB.N 10:59
PROVIDERS: ATTEND Nurse Practitioner
DX: E11.8 Type 2 diabetes mellitus with unspecified complications (principal)
CPT/HCPCS: 36415; 83036

== ENCOUNTER 2022-07-12 16:22 | Emergency (ER) | payer MEDICAID ==
--- OUTSIDE RECORDS SUMMARY | 2022-07-12 16:48 | EXTERNAL MEDICAL SUMMARY RPT | Continuity of Care Document ---
:1965 Author Organization [facility] Address [address] [place] [address] Phone Care Team Providers Name Role Phone Unavailable Unavailable Unavailable Joanne Bah Unavailable Unavailable Allergies No information. Encounters No information. Functional Status No information. Immunizations No information. Medications date description facility 2022-04-26 00:00 omeprazole [facility] 2022-04-21 00:00 gabapentin [facility] 2022-04-26 00:00 omeprazole [facility] 2022-04-21 00:00 gabapentin [facility] 2022-04-21 00:00 gabapentin [facility] 2022-04-26 00:00 omeprazole [facility] 2022-04-26 00:00 omeprazole [facility] 2022-04-21 00:00 gabapentin [facility] Problems date description facility 2022-04-21 00:00 Chronic hepatitis C without mention [facility] of hepatic coma & [facility] 2022-04-21 00:00 Obstructive sleep apnea of adult [facility] 2022-04-21 00:00 Chronic hepatitis C Walk[facility]In Clinic [facility] 2022-04-21 00:00 Drug-induced psychosis [facility] 2022-04-21 00:00 Cervical myelopathy Walk[facility]In [facility] 2022-04-21 00:00 Gastroesophageal reflux disease [facility] 2022-04-21 00:00 Other and unspecified hyperlipidemia W alk-In [facility] 2022-04-21 00:00 Morbid obesity [facility] 2022-04-21 00:00 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 [facility] 2022-04-21 00:00 Bipolar I disorder, most recent [facility] episode (or current) unspecified & [facility] 2022-04-21 00:00 Anxiety state, unspecified [facility] 2022-04-21 00:00 Hallucinogen abuse, unspecified use [facility] 2022-04-21 00:00 Other, mixed, or unspecified drug [facility] abuse, unspecified use & [facility] 2022-04-21 00:00 Multiple joint pain Walk[facility]In [facility] 2022-04-21 00:00 History of substance abuse [facility] 2022-04-21 00:00 History of drug abuse [facility] 2022-04-21 00:00 Bipolar I disorder [facility] 2022-04-21 00:00 Allergic rhinitis, cause unspecified [facility] alk[facility] 2022-04-21 00:00 Anxiety [facility] 2022-04-21 00:00 Postinflammatory pulmonary fibrosis [facility] 2022-04-21 00:00 Fibrosis of lung [facility] 2022-04-21 00:00 Esophageal reflux [facility] 2022-04-21 00:00 Hyperlipidemia [facility] 2022-04-21 00:00 Allergic rhinitis [facility] 2022-04-21 00:00 Pain in joint involving multiple [facility] sites [facility] 2022-04-21 00:00 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, cervical region & [facility] 2022-04-21 00:00 Chronic viral hepatitis C Walk-In [facility] 2022-04-21 00:00 Morbid (severe) obesity due to [facility] Primary [facility] excess calories & [facility] 2022-04-21 00:00 Hyperlipidemia, unspecified [facility] 2022-04-21 00:00 Opioid abuse, uncomplicated [facility] 2022-04-21 00:00 Other psychoactive substance Walk-In [facility] Primary Care dependence, in remission & [facility] 2022-04-21 00:00 Other psychoactive substance use, [facility]- [facility] Primary Care unspecified with psychoactive & [facility] [place] substance-induced psychotic disorder, unspecified 2022-04-21 00:00 Bipolar disorder, unspecified [facility] 2022-04-21 00:00 Anxiety disorder, unspecified [facility] 2022-04-21 00:00 Obstructive sleep apnea (adult) [facility] Care (pediatric) [facility] 2022-04-21 00:00 Allergic rhinitis, unspecified [facility] 2022-04-21 00:00 Pulmonary fibrosis, unspecified [facility] 2022-04-21 00:00 Gastro-esophageal reflux disease [facility] without esophagitis & [facility] 2022-04-21 00:00 Pain in unspecified joint Walk-In [facility] 2022-04-21 00:00 Other cervical disc degeneration, [facility] Primary Care unspecified cervical region & [facility] 2022-04-26 00:00 Chronic hepatitis C without mention [facility] Primary Care of hepatic coma & [facility] 2022-04-26 00:00 Obstructive sleep apnea of adult [facility] 2022-04-26 00:00 Chronic hepatitis C Walk[facility]In [facility] 2022-04-26 00:00 Drug-induced psychosis [facility] 2022-04-26 00:00 Cervical myelopathy Walk[facility] 2022-04-26 00:00 Gastroesophageal reflux disease [facility] 2022-04-26 00:00 Other and unspecified hyperlipidemia [facility] alk[facility] 2022-04-26 00:00 Morbid obesity Walk[facility]In Clinic [facility] [place] 2022-04-26 00:00 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 [facility] 2022-04-26 00:00 Bipolar I disorder, most recent [facility] episode (or current) unspecified & [facility] 2022-04-26 00:00 Anxiety state, unspecified [facility] 2022-04-26 00:00 Hallucinogen abuse, unspecified use Wa lk-In [facility] Primary Care [facility] 2022-04-26 00:00 Other, mixed, or unspecified drug [facility] abuse, unspecified use & [facility] 2022-04-26 00:00 Multiple joint pain Walk[facility]In [facility] 2022-04-26 00:00 History of substance abuse Walk[facility]In [facility] 2022-04-26 00:00 History of drug abuse Walk[facility] 2022-04-26 00:00 Bipolar I disorder Walk[facility] 2022-04-26 00:00 Allergic rhinitis, cause unspecified W alk-In [facility] 2022-04-26 00:00 Anxiety [facility] 2022-04-26 00:00 Postinflammatory pulmonary fibrosis Wa lk-In [facility] 2022-04-26 00:00 Fibrosis of lung Walk[facility] 2022-04-26 00:00 Esophageal reflux Walk[facility] 2022-04-26 00:00 Hyperlipidemia [facility] 2022-04-26 00:00 Allergic rhinitis [facility] 2022-04-26 00:00 Pain in joint involving multiple [facility] sites [facility] 2022-04-26 00:00 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, cervical region & [facility] 2022-04-26 00:00 Chronic viral hepatitis C [facility] 2022-04-26 00:00 Morbid (severe) obesity due to [facility] excess calories & [facility] 2022-04-26 00:00 Hyperlipidemia, unspecified [facility] 2022-04-26 00:00 Opioid abuse, uncomplicated [facility] 2022-04-26 00:00 Other psychoactive substance Walk-In [facility] Primary Care dependence, in remission & [facility] 2022-04-26 00:00 Other psychoactive substance use, [facility]- In [facility] Primary Care unspecified with psychoactive & [facility] [place] substance-induced psychotic disorder, unspecified 2022-04-26 00:00 Bipolar disorder, unspecified [facility] [place] 2022-04-26 00:00 Anxiety disorder, unspecified [facility] 2022-04-26 00:00 Obstructive sleep apnea (adult) [facility] (pediatric) [facility] 2022-04-26 00:00 Allergic rhinitis, unspecified [facility] 2022-04-26 00:00 Pulmonary fibrosis, unspecified [facility] 2022-04-26 00:00 Gastro-esophageal reflux disease [facility]- [facility] without esophagitis [facility] 2022-04-26 00:00 Pain in unspecified joint Walk-In [facility] 2022-04-26 00:00 Other cervical disc degeneration, [facility] Primary Care unspecified cervical region & [facility] 2022-05-02 00:00 Chronic hepatitis C without mention [facility] Primary Care of hepatic coma & [facility] 2022-05-02 00:00 Obstructive sleep apnea of adult [facility] 2022-05-02 00:00 Chronic hepatitis C Walk[facility]In Clinic [facility] 2022-05-02 00:00 Drug-induced psychosis [facility] 2022-05-02 00:00 Cervical myelopathy Walk[facility]In [facility] 2022-05-02 00:00 Gastroesophageal reflux disease [facility] 2022-05-02 00:00 Other and unspecified hyperlipidemia [facility] alk-[facility] 2022-05-02 00:00 Morbid obesity Walk[facility]In [facility] [place] 2022-05-02 00:00 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 [facility] 2022-05-02 00:00 Bipolar I disorder, most recent [facility] episode (or current) unspecified & [facility] 2022-05-02 00:00 Anxiety state, unspecified [facility] 2022-05-02 00:00 Hallucinogen abuse, unspecified use Wa lk-In [facility] Primary Care [facility] 2022-05-02 00:00 Other, mixed, or unspecified drug [facility] abuse, unspecified use & [facility] 2022-05-02 00:00 Multiple joint pain Walk[facility]In [facility] 2022-05-02 00:00 History of substance abuse [facility] 2022-05-02 00:00 History of drug abuse Walk[facility] 2022-05-02 00:00 Bipolar I disorder Walk[facility]In [facility] 2022-05-02 00:00 Allergic rhinitis, cause unspecified W alk-In [facility] 2022-05-02 00:00 Anxiety Walk[facility]In [facility] [place] 2022-05-02 00:00 Postinflammatory pulmonary fibrosis Wa lk-In [facility] 2022-05-02 00:00 Fibrosis of lung Walk[facility] 2022-05-02 00:00 Esophageal reflux [facility] 2022-05-02 00:00 Hyperlipidemia [facility] 2022-05-02 00:00 Allergic rhinitis Walk[facility] 2022-05-02 00:00 Pain in joint involving multiple [facility] sites [facility] 2022-05-02 00:00 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, cervical region & [facility] 2022-05-02 00:00 Chronic viral hepatitis C Walk-In [facility] 2022-05-02 00:00 Morbid (severe) obesity due to [facility] Primary [facility] excess calories & [facility] 2022-05-02 00:00 Hyperlipidemia, unspecified [facility] 2022-05-02 00:00 Opioid abuse, uncomplicated [facility] 2022-05-02 00:00 Other psychoactive substance Walk[facility]In [facility] Primary Care dependence, in remission & [facility] [place] 2022-05-02 00:00 Other psychoactive substance use, [facility]- In [facility] Primary Care unspecified with psychoactive & [facility] [place] substance-induced psychotic disorder, unspecified 2022-05-02 00:00 Bipolar disorder, unspecified [facility] 2022-05-02 00:00 Anxiety disorder, unspecified [facility] 2022-05-02 00:00 Obstructive sleep apnea (adult) [facility] (pediatric) [facility] 2022-05-02 00:00 Allergic rhinitis, unspecified [facility] 2022-05-02 00:00 Pulmonary fibrosis, unspecified Walk-I n [facility] Care [facility] 2022-05-02 00:00 Gastro-esophageal reflux disease [facility]- In [facility] Primary [facility] without esophagitis & [facility] 2022-05-02 00:00 Pain in unspecified joint [facility] 2022-05-02 00:00 Other cervical disc degeneration, [facility] Primary Care unspecified cervical region & [facility] 2022-05-03 00:00 Chronic hepatitis C without mention Wa [facility]-In Clinic Primary Care of hepatic coma & [facility] 2022-05-03 00:00 Obstructive sleep apnea of adult [facility] 2022-05-03 00:00 Chronic hepatitis C Walk[facility]In [facility] [place] 2022-05-03 00:00 Drug-induced psychosis [facility] 2022-05-03 00:00 Cervical myelopathy Walk[facility] [place] 2022-05-03 00:00 Gastroesophageal reflux disease [facility] 2022-05-03 00:00 Other and unspecified hyperlipidemia W alk-In [facility] 2022-05-03 00:00 Morbid obesity Walk[facility]In [facility] [place] 2022-05-03 00:00 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 [facility] 2022-05-03 00:00 Bipolar I disorder, most recent [facility] Primary [facility] episode (or current) unspecified & [facility] 2022-05-03 00:00 Anxiety state, unspecified [facility] 2022-05-03 00:00 Hallucinogen abuse, unspecified use [facility] 2022-05-03 00:00 Other, mixed, or unspecified drug [facility] abuse, unspecified use & [facility] 2022-05-03 00:00 Multiple joint pain Walk[facility]In [facility] [place] 2022-05-03 00:00 History of substance abuse [facility] 2022-05-03 00:00 History of drug abuse [facility] 2022-05-03 00:00 Bipolar I disorder Walk[facility] [place] 2022-05-03 00:00 Allergic rhinitis, cause unspecified W alk-In [facility] Primary Care [facility] 2022-05-03 00:00 Anxiety Walk[facility]In [facility] [place] 2022-05-03 00:00 Postinflammatory pulmonary fibrosis Wa lk-In [facility] 2022-05-03 00:00 Fibrosis of lung Walk[facility] [place] 2022-05-03 00:00 Esophageal reflux [facility] [place] 2022-05-03 00:00 Hyperlipidemia Walk[facility]In [facility] [place] 2022-05-03 00:00 Allergic rhinitis Walk[facility]In [facility] 2022-05-03 00:00 Pain in joint involving multiple [facility] sites [facility] 2022-05-03 00:00 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, cervical region & [facility] 2022-05-03 00:00 Chronic viral hepatitis C Walk-In [facility] [place] 2022-05-03 00:00 Morbid (severe) obesity due to [facility] Primary Care excess calories & [facility] 2022-05-03 00:00 Hyperlipidemia, unspecified [facility] 2022-05-03 00:00 Opioid abuse, uncomplicated [facility] 2022-05-03 00:00 Other psychoactive substance Walk-In C linic Primary Care dependence, in remission & [facility] [place] 2022-05-03 00:00 Other psychoactive substance use, [facility]- In [facility] Primary Care unspecified with psychoactive & [facility] [place] substance-induced psychotic disorder, unspecified 2022-05-03 00:00 Bipolar disorder, unspecified [facility] [place] 2022-05-03 00:00 Anxiety disorder, unspecified [facility] [place] 2022-05-03 00:00 Obstructive sleep apnea (adult) [facility] (pediatric) [facility] 2022-05-03 00:00 Allergic rhinitis, unspecified [facility] 2022-05-03 00:00 Pulmonary fibrosis, unspecified [facility] 2022-05-03 00:00 Gastro-esophageal reflux disease [facility]- In [facility] Primary Care without esophagitis & [facility] 2022-05-03 00:00 Pain in unspecified joint Walk-In [facility] [place] 2022-05-03 00:00 Other cervical disc degeneration, [facility]In [facility] Primary Care unspecified cervical region & [facility] 2022-05-06 00:00 Chronic hepatitis C without mention Wa lk-In Clinic Primary Care of hepatic coma & [facility] 2022-05-06 00:00 Obstructive sleep apnea of adult Walk- In [facility] 2022-05-06 00:00 Chronic hepatitis C Walk[facility]In [facility] & [facility] [place] 2022-05-06 00:00 Drug-induced psychosis [facility] 2022-05-06 00:00 Cervical myelopathy Walk[facility]In [facility] [place] 2022-05-06 00:00 Gastroesophageal reflux disease Walk-I n [facility] [place] 2022-05-06 00:00 Other and unspecified hyperlipidemia W alk-In [facility] [place] 2022-05-06 00:00 Morbid obesity Walk[facility]In [facility] [place] 2022-05-06 00:00 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 [facility] 2022-05-06 00:00 Bipolar I disorder, most recent [facility] Primary Care episode (or current) unspecified & [facility] 2022-05-06 00:00 Anxiety state, unspecified [facility] [place] 2022-05-06 00:00 Hallucinogen abuse, unspecified use Wa lk-In [facility] Primary Care [facility] [place] 2022-05-06 00:00 Other, mixed, or unspecified drug [facility] Primary Care abuse, unspecified use & [facility] [place] 2022-05-06 00:00 Multiple joint pain [facility] [place] 2022-05-06 00:00 History of substance abuse [facility] [place] 2022-05-06 00:00 History of drug abuse [facility] 2022-05-06 00:00 Bipolar I disorder [facility] [place] 2022-05-06 00:00 Allergic rhinitis, cause unspecified W alk-In [facility] [place] 2022-05-06 00:00 Anxiety Walk-In [facility] Prim [facility] & [facility] 2022-05-06 00:00 Postinflammatory pulmonary fibrosis Wa [facility]-In [facility] 2022-05-06 00:00 Fibrosis of lung Walk[facility]In Clinic [facility] [place] 2022-05-06 00:00 Esophageal reflux Walk[facility]In [facility] [place] 2022-05-06 00:00 Hyperlipidemia Walk[facility]In [facility] [place] 2022-05-06 00:00 Allergic rhinitis Walk[facility]In [facility] [place] 2022-05-06 00:00 Pain in joint involving multiple [facility]- [facility] sites & [facility] 2022-05-06 00:00 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, cervical region & [facility] 2022-05-06 00:00 Chronic viral hepatitis C Walk-In [facility] [place] 2022-05-06 00:00 Morbid (severe) obesity due to [facility]In [facility] Primary Care excess calories & [facility] 2022-05-06 00:00 Hyperlipidemia, unspecified [facility] Cl [facility] 2022-05-06 00:00 Opioid abuse, uncomplicated [facility] 2022-05-06 00:00 Other psychoactive substance Walk-In C linic Primary Care dependence, in remission & [facility] [place] 2022-05-06 00:00 Other psychoactive substance use, [facility]- In [facility] Primary Care unspecified with psychoactive & [facility] [place] substance-induced psychotic disorder, unspecified 2022-05-06 00:00 Bipolar disorder, unspecified [facility] 2022-05-06 00:00 Anxiety disorder, unspecified [facility] [place] 2022-05-06 00:00 Obstructive sleep apnea (adult) [facility] n [facility] Primary Care (pediatric) [facility] 2022-05-06 00:00 Allergic rhinitis, unspecified [facility] 2022-05-06 00:00 Pulmonary fibrosis, unspecified [facility] 2022-05-06 00:00 Gastro-esophageal reflux disease Walk- In [facility] Primary Care without esophagitis & [facility] 2022-05-06 00:00 Pain in unspecified joint Walk-In Clin [facility] 2022-05-06 00:00 Other cervical disc degeneration, Walk -In Clinic Primary Care unspecified cervical region & [facility] Procedures No information. Results/Labs test date author facility value unit interpret ation Result panel 1 (unknown) (no date) (unknown) [facility] value[facility] Result panel 2 (unknown) (no date) (unknown) [facility] (no value[facility] Result panel 3 (unknown) (no date) (unknown) [facility] (no value[facility] Result panel 4 (unknown) (no date) (unknown) [facility]no value[facility] Result panel 5 (unknown) (no date) (unknown) [facility] (no value) [facility] Result panel 6 (unknown) (no date) (unknown) [facility] (no value) [facility] Result panel 7 (unknown) (no date) (unknown) [facility] (no value[facility] Result panel 8 (unknown) (no date) (unknown) [facility]no value[facility] Result panel 9 (unknown) (no date) (unknown) [facility] (no value) [facility] Result panel 10 (unknown) (no date) (unknown) [facility] (no value) [facility] Result panel 11 (unknown) (no date) (unknown) [facility]no value) [facility] Result panel 12 (unknown) (no date) (unknown) [facility]no value) [facility] Result panel 13 (unknown) (no date) (unknown) [facility] (no value) [facility] Result panel 14 (unknown) (no date) (unknown) [facility] (no value) [facility] Result panel 15 (unknown) (no date) (unknown) [facility] (no value) [facility] Result panel 16 (unknown) (no date) (unknown) [facility] (no value) [facility] Result panel 17 (unknown) (no date) (unknown) [facility] (no value) [facility] Result panel 18 (unknown) (no date) (unknown) [facility] (no value) [facility] Result panel 19 (unknown) (no date) (unknown) [facility] (no value) [facility] Result panel 20 (unknown) (no date) (unknown) [facility] (no value) [facility] Result panel 21 (unknown) (no date) (unknown) [facility] (no value) [facility] Result panel 22 (unknown) (no date) (unknown) [facility] (no value) [facility] Result panel 23 (unknown) (no date) (unknown) [facility] (no value) [facility] Result panel 24 (unknown) (no date) (unknown) [facility] (no value) [facility] Result panel 25 (unknown) (no date) (unknown) [facility] (no value) [facility] Result panel 26 (unknown) (no date) (unknown) [facility] (no value) [facility] Result panel 27 (unknown) (no date) (unknown) [facility] (no value) [facility] Result panel 28 (unknown) (no date) (unknown) [facility] (no value) [facility] Result panel 29 (unknown) (no date) (unknown) [facility] (no value) [facility] Result panel 30 (unknown) (no date) (unknown) [facility] (no value) [facility] Result panel 31 (unknown) (no date) (unknown) [facility] (no value) [facility] Result panel 32 (unknown) (no date) (unknown) [facility] (no value) [facility] Result panel 33 (unknown) (no date) (unknown) [facility] (no value) [facility] Result panel 34 (unknown) (no date) (unknown) [facility] (no value) [facility] Result panel 35 (unknown) (no date) (unknown) [facility] (no value) [facility] Result panel 36 (unknown) (no date) (unknown) [facility] (no value) [facility] Result panel 37 (unknown) (no date) (unknown) [facility] (no value) [facility] Result panel 38 (unknown) (no date) (unknown) [facility] (no value) [facility] Result panel 39 (unknown) (no date) (unknown) [facility] (no value) [facility] Result panel 40 (unknown) (no date) (unknown) [facility] (no value) [facility] Result panel 41 (unknown) (no date) (unknown) [facility] (no value) [facility] Result panel 42 (unknown) (no date) (unknown) [facility] (no value) [facility] Result panel 43 (unknown) (no date) (unknown) [facility] (no value) [facility] Result panel 44 (unknown) (no date) (unknown) [facility] (no value) [facility] Result panel 45 (unknown) (no date) (unknown) [facility] (no value) [facility] Result panel 46 (unknown) (no date) (unknown) [facility] (no value) [facility] Result panel 47 (unknown) (no date) (unknown) [facility] (no value) [facility] Result panel 48 (unknown) (no date) (unknown) [facility] (no value) [facility] Result panel 49 (unknown) (no date) (unknown) [facility] (no value) [facility] Result panel 50 (unknown) (no date) (unknown) [facility] (no value) [facility] Result panel 51 (unknown) (no date) (unknown) [facility] (no value) [facility] Result panel 52 (unknown) (no date) (unknown) [facility] (no value) [facility] Result panel 53 (unknown) (no date) (unknown) [facility] (no value) [facility] Result panel 54 (unknown) (no date) (unknown) [facility] (no value) [facility] Result panel 55 (unknown) (no date) (unknown) [facility] (no value) [facility] Result panel 56 (unknown) (no date) (unknown) [facility] (no value) [facility] Result panel 57 (unknown) (no date) (unknown) [facility] (no value) [facility] Result panel 58 (unknown) (no date) (unknown) [facility] (no value) [facility] Result panel 59 (unknown) (no date) (unknown) [facility] (no value) [facility] Result panel 60 (unknown) (no date) (unknown) [facility]no value) [facility] Result panel 61 (unknown) (no date) (unknown) [facility] (no value) [facility] Result panel 62 (unknown) (no date) (unknown) [facility] (no value) [facility] Result panel 63 (unknown) (no date) (unknown) [facility] (no value) [facility] Result panel 64 (unknown) (no date) (unknown) [facility] (no value) [facility] Result panel 65 (unknown) (no date) (unknown) [facility] (no value) [facility] Result panel 66 (unknown) (no date) (unknown) [facility] (no value) [facility] Result panel 67 (unknown) (no date) (unknown) [facility] (no value) [facility] Result panel 68 (unknown) (no date) (unknown) [facility] (no value) [facility] Result panel 69 (unknown) (no date) (unknown) [facility] (no value) [facility] Result panel 70 (unknown) (no date) (unknown) [facility] (no value) [facility] Result panel 71 (unknown) (no date) (unknown) [facility] (no value) [facility] Result panel 72 (unknown) (no date) (unknown) [facility] (no value) [facility] Result panel 73 (unknown) (no date) (unknown) [facility] (no value) [facility] Result panel 74 (unknown) (no date) (unknown) [facility] (no value) [facility] Result panel 75 (unknown) (no date) (unknown) [facility] (no value) [facility] Result panel 76 (unknown) (no date) (unknown) [facility] (no value) [facility] Result panel 77 (unknown) (no date) (unknown) [facility] (no value) [facility] Result panel 78 (unknown) (no date) (unknown) [facility] (no value) [facility] Result panel 79 (unknown) (no date) (unknown) [facility] (no value) [facility] Result panel 80 (unknown) (no date) (unknown) [facility] (no value) [facility] Result panel 81 (unknown) (no date) (unknown) [facility] (no value) [facility] Result panel 82 (unknown) (no date) (unknown) [facility] (no value) [facility] Result panel 83 (unknown) (no date) (unknown) [facility] (no value) [facility] Result panel 84 (unknown) (no date) (unknown) [facility] (no value) [facility] Result panel 85 (unknown) (no date) (unknown) [facility] (no value) [facility] Result panel 86 (unknown) (no date) (unknown) [facility] (no value) [facility] Result panel 87 (unknown) (no date) (unknown) [facility] (no value) [facility] Result panel 88 (unknown) (no date) (unknown) [facility] (no value) [facility] Result panel 89 (unknown) (no date) (unknown) [facility] (no value) [facility] Result panel 90 (unknown) (no date) (unknown) [facility] (no value) [facility] Result panel 91 (unknown) (no date) (unknown) [facility] (no value) [facility] Result panel 92 (unknown) (no date) (unknown) [facility] (no value) [facility] Result panel 93 (unknown) (no date) (unknown) [facility] (no value) [facility] Result panel 94 (unknown) (no date) (unknown) [facility] (no value) [facility] Result panel 95 (unknown) (no date) (unknown) [facility] (no value) [facility] Result panel 96 (unknown) (no date) (unknown) [facility] (no value) [facility] Result panel 97 (unknown) (no date) (unknown) [facility] (no value) [facility] Result panel 98 (unknown) (no date) (unknown) [facility] (no value) [facility] Result panel 99 (unknown) (no date) (unknown) [facility] (no value) [facility] Result panel 100 (unknown) (no date) (unknown) [facility] (no value) [facility] Result panel 101 (unknown) (no date) (unknown) [facility] (no value) [facility] Result panel 102 (unknown) (no date) (unknown) [facility] (no value) [facility] Result panel 103 (unknown) (no date) (unknown) [facility] (no value) [facility] Result panel 104 (unknown) (no date) (unknown) [facility] (no value) [facility] Result panel 105 (unknown) (no date) (unknown) [facility] (no value) [facility] Result panel 106 (unknown) (no date) (unknown) [facility] (no value) [facility] Result panel 107 (unknown) (no date) (unknown) [facility] (no value) [facility] Result panel 108 (unknown) (no date) (unknown) [facility] (no value) [facility] Result panel 109 (unknown) (no date) (unknown) [facility] (no value) [facility] Result panel 110 (unknown) (no date) (unknown) [facility] (no value) [facility] Result panel 111 (unknown) (no date) (unknown) [facility] (no value) [facility] Result panel 112 (unknown) (no date) (unknown) [facility] (no value) [facility] Result panel 113 (unknown) (no date) (unknown) [facility] (no value) [facility] Result panel 114 (unknown) (no date) (unknown) [facility] (no value) [facility] Result panel 115 (unknown) (no date) (unknown) [facility] (no value) [facility] Result panel 116 (unknown) (no date) (unknown) [facility] (no value) [facility] Result panel 117 (unknown) (no date) (unknown) [facility] (no value) [facility] Result panel 118 (unknown) (no date) (unknown) [facility] (no value) [facility] Result panel 119 (unknown) (no date) (unknown) [facility] (no value) [facility] Result panel 120 (unknown) (no date) (unknown) [facility] (no value) [facility] Result panel 121 (unknown) (no date) (unknown) [facility] (no value) [facility] Result panel 122 (unknown) (no date) (unknown) [facility] (no value) [facility] Result panel 123 (unknown) (no date) (unknown) [facility] (no value) [facility] Result panel 124 (unknown) (no date) (unknown) [facility] (no value) [facility] Result panel 125 (unknown) (no date) (unknown) [facility] (no value) [facility] Result panel 126 (unknown) (no date) (unknown) [facility] (no value) [facility] Result panel 127 (unknown) (no date) (unknown) [facility] (no value) [facility] Result panel 128 (unknown) (no date) (unknown) [facility] (no value) [facility] Result panel 129 (unknown) (no date) (unknown) [facility] (no value) [facility] Result panel 130 (unknown) (no date) (unknown) [facility] (no value) [facility] Result panel 131 (unknown) (no date) (unknown) [facility] (no value) [facility] Result panel 132 (unknown) (no date) (unknown) [facility] (no value) [facility] Result panel 133 (unknown) (no date) (unknown) [facility] (no value) [facility] Result panel 134 (unknown) (no date) (unknown) [facility] (no value) [facility] Result panel 135 (unknown) (no date) (unknown) [facility] (no value) [facility] Result panel 136 (unknown) (no date) (unknown) [facility] (no value) [facility] Result panel 137 (unknown) (no date) (unknown) [facility] (no value) [facility] Result panel 138 (unknown) (no date) (unknown) [facility] (no value) [facility] Result panel 139 (unknown) (no date) (unknown) [facility] (no value) [facility] Result panel 140 (unknown) (no date) (unknown) [facility] (no value) [facility] Result panel 141 (unknown) (no date) (unknown) [facility] (no value) [facility] Result panel 142 (unknown) (no date) (unknown) [facility] (no value) [facility] Result panel 143 (unknown) (no date) (unknown) [facility] (no value) [facility] Result panel 144 (unknown) (no date) (unknown) [facility] (no value) [facility] Result panel 145 (unknown) (no date) (unknown) [facility] (no value) [facility] Result panel 146 (unknown) (no date) (unknown) [facility] (no value) [facility] Result panel 147 (unknown) (no date) (unknown) [facility] (no value) [facility] Result panel 148 (unknown) (no date) (unknown) [facility] (no value) [facility] Result panel 149 (unknown) (no date) (unknown) [facility] (no value) [facility] Result panel 150 (unknown) (no date) (unknown) [facility] (no value) [facility] Result panel 151 (unknown) (no date) (unknown) [facility] (no value) [facility] Result panel 152 (unknown) (no date) (unknown) [facility] (no value) [facility] Result panel 153 (unknown) (no date) (unknown) [facility] (no value) [facility] Result panel 154 (unknown) (no date) (unknown) [facility] (no value) [facility] Result panel 155 (unknown) (no date) (unknown) [facility] (no value) [facility] Result panel 156 (unknown) (no date) (unknown) [facility] (no value) [facility] Result panel 157 (unknown) (no date) (unknown) [facility] (no value) [facility] Result panel 158 (unknown) (no date) (unknown) [facility] (no value) [facility] Result panel 159 (unknown) (no date) (unknown) [facility] (no value) [facility] Result panel 160 (unknown) (no date) (unknown) [facility] (no value) [facility] Result panel 161 (unknown) (no date) (unknown) [facility] (no value) [facility] Result panel 162 (unknown) (no date) (unknown) [facility] (no value) [facility] Result panel 163 (unknown) (no date) (unknown) [facility] (no value) [facility] Result panel 164 (unknown) (no date) (unknown) [facility] (no value) [facility] Result panel 165 (unknown) (no date) (unknown) [facility] (no value) [facility] Result panel 166 (unknown) (no date) (unknown) [facility] (no value) [facility] Result panel 167 (unknown) (no date) (unknown) [facility] (no value) [facility] Result panel 168 (unknown) (no date) (unknown) [facility] (no value) [facility] Result panel 169 (unknown) (no date) (unknown) [facility] (no value) [facility] Result panel 170 (unknown) (no date) (unknown) [facility] (no value) [facility] Result panel 171 (unknown) (no date) (unknown) [facility] (no value) [facility] Result panel 172 (unknown) (no date) (unknown) [facility] (no value) [facility] unknown) [facility] Result panel 173 (unknown) (no date) (unknown) Walk-In (no value) [facility]units [facility]own[facility] Primary [facility]) [facility] Result panel 174 (unknown) (no date) (unknown) Walk-In (no value) [facility]units [facility]own[facility] Primary [facility]) [facility] Result panel 175 (unknown) (no date) (unknown) Walk-In (no value) [facility]units [facility]own[facility] Primary [facility] Result panel 176 (unknown) (no date) (unknown) Walk-In (no value) [facility]units [facility]own[facility] Primary [facility] Result panel 177 (unknown) (no date) (unknown) Walk-In (no value) [facility]units [facility]own[facility] Primary [facility] Result panel 178 (unknown) (no date) (unknown) Walk-In (no value) [facility]units [facility] Primary [facility] Result panel 179 (unknown) (no date) (unknown) Walk-In (no value) [facility]units [facility]own[facility] Primary [facility] Result panel 180 (unknown) (no date) (unknown) Walk-In (no value) [facility]units [facility] Primary [facility] Result panel 181 (unknown) (no date) (unknown) Walk-In (no value) [facility]units [facility] Primary [facility] Result panel 182 (unknown) (no date) (unknown) Walk-In (no value) [facility]units [facility] Primary [facility] Result panel 183 (unknown) (no date) (unknown) Walk-In (no value) [facility]units [facility]own[facility] Primary [facility]) [facility] Result panel 184 (unknown) (no date) (unknown) Walk-In (no value) [facility]units [facility] Primary [facility] Result panel 185 (unknown) (no date) (unknown) Walk-[facility] (no value) [facility]units [facility] Result panel 186 (unknown) (no date) (unknown) Walk-In (no value) [facility]units [facility] Primary [facility] Result panel 187 (unknown) (no date) (unknown) Walk-[facility] (no value) [facility]units [facility] Primary [facility] Result panel 188 (unknown) (no date) (unknown) Walk-In (no value) [facility]units [facility] Primary [facility] Result panel 189 (unknown) (no date) (unknown) Walk-In (no value) [facility]units [facility] Primary [facility] Result panel 190 (unknown) (no date) (unknown) Walk-In (no value) [facility]units [facility] Result panel 191 (unknown) (no date) (unknown) Walk-In (no value) [facility]units [facility] Primary [facility] Result panel 192 (unknown) (no date) (unknown) Walk-In (no value) [facility]units [facility] Primary [facility] Result panel 193 (unknown) (no date) (unknown) Walk-In (no value) [facility]units ([facility]own[facility] Primary [facility] Result panel 194 (unknown) (no date) (unknown) Walk-In (no value) [facility]units [facility] Primary [facility] Result panel 195 (unknown) (no date) (unknown) Walk-In (no value) [facility]units [facility] Primary [facility] Result panel 196 (unknown) (no date) (unknown) Walk-In (no value) [facility]units ([facility] Primary [facility] Result panel 197 (unknown) (no date) (unknown) Walk-In (no value) [facility]units [facility] Result panel 198 (unknown) (no date) (unknown) Walk-In (no value) [facility]units [facility] Result panel 199 (unknown) (no date) (unknown) Walk-In (no value) [facility]units [facility] Primary [facility] Result panel 200 (unknown) (no date) (unknown) Walk-In (no value) [facility]units [facility] Primary [facility] Result panel 201 (unknown) (no date) (unknown) Walk-In (no value) [facility]units [facility] Primary [facility] Result panel 202 (unknown) (no date) (unknown) Walk-In (no value) [facility]units [facility] Result panel 203 (unknown) (no date) (unknown) Walk-In (no value) [facility]units [facility] Result panel 204 (unknown) (no date) (unknown) Walk-In (no value) [facility]units [facility] Result panel 205 (unknown) (no date) (unknown) Walk-In (no value) [facility]units ([facility] Primary [facility] Result panel 206 (unknown) (no date) (unknown) Walk-In (no value) (units ([facility]own[facility] Primary [facility] Result panel 207 (unknown) (no date) (unknown) Walk-In (no value) [facility]units [facility] Primary [facility] Result panel 208 (unknown) (no date) (unknown) Walk-In (no value) [facility]units [facility] Primary [facility] Result panel 209 (unknown) (no date) (unknown) Walk-In (no value) [facility]units [facility] Result panel 210 (unknown) (no date) (unknown) Walk-In (no value) [facility]units [facility] Result panel 211 (unknown) (no date) (unknown) Walk-In (no value) [facility]units ([facility] Primary [facility] Result panel 212 (unknown) (no date) (unknown) Walk-In (no value) [facility]units [facility] Primary [facility] Result panel 213 (unknown) (no date) (unknown) Walk-In (no value) [facility]units [facility] Primary [facility] Result panel 214 (unknown) (no date) (unknown) Walk-In (no value) [facility]units [facility] Primary [facility] Result panel 215 (unknown) (no date) (unknown) Walk-In (no value) [facility]units [facility] Primary [facility] Result panel 216 (unknown) (no date) (unknown) Walk-In (no value) [facility]units [facility] Primary [facility] Result panel 217 (unknown) (no date) (unknown) Walk-In (no value) [facility]units [facility] Primary [facility] Result panel 218 (unknown) (no date) (unknown) Walk-In (no value) [facility]units [facility] Primary [facility] Result panel 219 (unknown) (no date) (unknown) Walk-In (no value) (units ([facility] Primary [facility] Result panel 220 (unknown) (no date) (unknown) Walk-In (no value) [facility]units [facility] Primary [facility] Result panel 221 (unknown) (no date) (unknown) Walk-In (no value) [facility]units [facility] Primary [facility] Result panel 222 (unknown) (no date) (unknown) Walk-In (no value) [facility]units [facility] Primary [facility] Result panel 223 (unknown) (no date) (unknown) Walk-In (no value) [facility]units [facility] Primary [facility] Result panel 224 (unknown) (no date) (unknown) Walk-In (no value) [facility]units [facility] Primary [facility] Result panel 225 (unknown) (no date) (unknown) Walk-In (no value) [facility]units [facility] Primary [facility] Result panel 226 (unknown) (no date) (unknown) Walk-In (no value) [facility]units [facility] Primary [facility] Result panel 227 (unknown) (no date) (unknown) Walk-In (no value) [facility]units [facility] Result panel 228 (unknown) (no date) (unknown) Walk-In (no value) [facility]units [facility] Result panel 229 (unknown) (no date) (unknown) Walk-In (no value) [facility]units [facility] Result panel 230 (unknown) (no date) (unknown) Walk-In (no value) [facility]units [facility] Result panel 231 (unknown) (no date) (unknown) Walk-In (no value) [facility]units [facility] Result panel 232 (unknown) (no date) (unknown) Walk-In (no value) [facility]units [facility]own[facility] Primary [facility] Result panel 233 (unknown) (no date) (unknown) Walk-In (no value) [facility]units [facility] Primary [facility] Result panel 234 (unknown) (no date) (unknown) Walk-In (no value) [facility]units [facility] nown[facility] Primary [facility] Result panel 235 (unknown) (no date) (unknown) Walk-In (no value) [facility]units ([facility] nown[facility] Primary [facility] Result panel 236 (unknown) (no date) (unknown) Walk-In (no value) [facility]units ([facility] Primary [facility] Result panel 237 (unknown) (no date) (unknown) Walk-In (no value) [facility]units ([facility]own[facility] Primary [facility] Result panel 238 (unknown) (no date) (unknown) Walk-In (no value) [facility]units [facility] Result panel 239 (unknown) (no date) (unknown) Walk-In (no value) [facility]units ([facility] nown[facility] Primary [facility] Result panel 240 (unknown) (no date) (unknown) Walk-In (no value) [facility]units ([facility] Result panel 241 (unknown) (no date) (unknown) Walk-In (no value) [facility]units [facility] Result panel 242 (unknown) (no date) (unknown) Walk-In (no value) [facility]units ([facility]own[facility] Result panel 243 (unknown) (no date) (unknown) Walk-In (no value) [facility]units [facility] Primary [facility] Result panel 244 (unknown) (no date) (unknown) Walk-In (no value) [facility]units ([facility] Primary [facility] Result panel 245 (unknown) (no date) (unknown) Walk-In (no value) [facility]units ([facility]own[facility] Primary [facility] Result panel 246 (unknown) (no date) (unknown) Walk-In (no value) [facility]units ([facility]own[facility] Result panel 247 (unknown) (no date) (unknown) Walk-In (no value) [facility]units ([facility] Result panel 248 (unknown) (no date) (unknown) Walk-In (no value) [facility]units ([facility] Result panel 249 (unknown) (no date) (unknown) Walk-In (no value) [facility]units ([facility] Result panel 250 (unknown) (no date) (unknown) Walk-In (no value) [facility]units ([facility] Result panel 251 (unknown) (no date) (unknown) Walk-In (no value) [facility]units ([facility] Result panel 252 (unknown) (no date) (unknown) Walk-In (no value) [facility]units [facility] Result panel 253 (unknown) (no date) (unknown) Walk-In (no value) [facility]units ([facility]own[facility] Result panel 254 (unknown) (no date) (unknown) Walk-In (no value) [facility]units ([facility]own[facility] Result panel 255 (unknown) (no date) (unknown) Walk-In (no value) [facility]units [facility]own[facility] Result panel 256 (unknown) (no date) (unknown) Walk-In (no value) [facility]units ([facility] Result panel 257 (unknown) (no date) (unknown) Walk-In (no value) [facility]units ([facility]own[facility] Result panel 258 (unknown) (no date) (unknown) Walk-In (no value) [facility]units ([facility] Result panel 259 (unknown) (no date) (unknown) Walk-In (no value) [facility]units ([facility] nown[facility] Result panel 260 (unknown) (no date) (unknown) Walk-In (no value) [facility]units ([facility]own[facility] Result panel 261 (unknown) (no date) (unknown) Walk-In (no value) [facility]units ([facility] Result panel 262 (unknown) (no date) (unknown) Walk-In (no value) [facility]units ([facility] nown[facility] Primary [facility] Result panel 263 (unknown) (no date) (unknown) Walk-In (no value) [facility]units ([facility] nown[facility] Primary [facility] Result panel 264 (unknown) (no date) (unknown) Walk-In (no value) [facility]units ([facility] nown[facility] Primary [facility] Result panel 265 (unknown) (no date) (unknown) Walk-In (no value) [facility]units ([facility] nown[facility] Primary [facility] Result panel 266 (unknown) (no date) (unknown) Walk-In (no value) [facility]units ([facility] nown[facility] Result panel 267 (unknown) (no date) (unknown) Walk-In (no value) [facility]units ([facility]own[facility] Result panel 268 (unknown) (no date) (unknown) Walk-In (no value) [facility]units ([facility] nown[facility] Result panel 269 (unknown) (no date) (unknown) Walk-In (no value) (units ([facility] nown[facility] Result panel 270 (unknown) (no date) (unknown) Walk-In (no value) (units ([facility] nown[facility] Result panel 271 (unknown) (no date) (unknown) Walk-In (no value) [facility]units ([facility] nown[facility] Result panel 272 (unknown) (no date) (unknown) Walk-In (no value) [facility]units ([facility] nown[facility] Result panel 273 (unknown) (no date) (unknown) Walk-In (no value) [facility]units ([facility] nown[facility] Result panel 274 (unknown) (no date) (unknown) Walk-In (no value) (units ([facility] nown[facility] Primary [facility] Result panel 275 (unknown) (no date) (unknown) Walk-In (no value) (units ([facility] nown[facility] Primary [facility] Result panel 276 (unknown) (no date) (unknown) Walk-In (no value) (units ([facility] nown[facility] Result panel 277 (unknown) (no date) (unknown) Walk-In (no value) (units ([facility] nown[facility] Primary [facility] Result panel 278 (unknown) (no date) (unknown) Walk-In (no value) [facility]units ([facility] nown[facility] Result panel 279 (unknown) (no date) (unknown) Walk-In (no value) (units ([facility] nown[facility] Result panel 280 (unknown) (no date) (unknown) Walk-In (no value) (units ([facility] nown[facility] Result panel 281 (unknown) (no date) (unknown) Walk-In (no value) [facility]units ([facility] nown[facility] Result panel 282 (unknown) (no date) (unknown) Walk-In (no value) (units ([facility] nown[facility] Result panel 283 (unknown) (no date) (unknown) Walk-In (no value) (units ([facility] nown[facility] Result panel 284 (unknown) (no date) (unknown) Walk-In (no value) (units ([facility] nown[facility] Result panel 285 (unknown) (no date) (unknown) Walk-In (no value) (units ([facility] nown[facility] Result panel 286 (unknown) (no date) (unknown) Walk-In (no value) (units ([facility] nown[facility] Result panel 287 (unknown) (no date) (unknown) Walk-In (no value) (units ([facility] nown[facility] Result panel 288 (unknown) (no date) (unknown) Walk-In (no value) (units ([facility] nown) [facility] Primary [facility] Result panel 289 (unknown) (no date) (unknown) Walk-In (no value) (units ([facility] nown[facility] Primary [facility] Result panel 290 (unknown) (no date) (unknown) Walk-In (no value) (units ([facility] nown[facility] Result panel 291 (unknown) (no date) (unknown) Walk-In (no value) (units ([facility] nown) [facility] Primary unknown[facility] Result panel 292 (unknown) (no date) (unknown) Walk-In (no value) (units ([facility] nown) [facility] Primary unknown) [facility] Social History No information. Vital Signs No information.
[2022-07-12] MEDS ORDERED: MELOXICAM 7.5 MG TABLET PO STA (16:53)
--- NOTE | 2022-07-12 16:55 | ED Physician Documentation ---
PD HPI UPPER EXT INJURY - Stated complaint Stated Complaint: L ELBOW PX - Chief complaint Chief Complaint: Ext Problem - History obtained from History obtained from: Patient - Additonal information Additional information: 56-year-old woman who without specific trauma has had 2 months worth of left elbow pain. She saw her physician and x-rays were ordered but she has not followed through on that yet. She checked into the emergency department hopeful that she would get a steroid shot into the elbow today. Review of Systems Constitutional: reports: Reviewed and negative Respiratory: reports: Reviewed and negative PD PAST MEDICAL HISTORY - Past Medical History Cardiovascular: None, High cholesterol Respiratory: Asthma, Sleep apnea, Other Neuro: None Endocrine/Autoimmune: Type 2 diabetes GI: GERD, Hepatitis [employer]: None : None HEENT: None Psych: Anxiety, Bipolar disorder, Other Musculoskeletal: Osteoarthritis, Chronic back pain, Other Derm: None - Past Surgical History Past Surgical History: Yes General: Cholecystectomy, Appendectomy Ortho: Hip replacement, Knee replacement, Other HEENT: Tonsil/Adenoidectomy - Present Medications Home Medications: Ambulatory Orders Medication Instructions Recorded Confirmed QUEtiapine [SEROquel] 500 mg PO DAILY PM 03/01/15 06/07/21 Cetirizine [ZyrTEC] 10 mg PO DAILY 04/03/15 06/07/21 Omeprazole [PriLOSEC] 20 mg PO DAILY 04/03/15 06/07/21 Gabapentin 1,600 mg PO BID 02/14/17 06/07/21 Insulin Glargine [Lantus Solostar] 27 unit SQ QDDINNER 02/14/18 06/07/21 Metformin HCl 1,000 mg PO BID 02/14/18 06/07/21 Ferrous Sulfate 325 mg PO TID #90 12/13/20 06/07/21 HYDROcod/ACETAM 5/325 [[place] 5/325] 1 - 2 tab PO Q6H PRN #15 tablet 12/13/20 06/07/21 Meloxicam [Mobic] 7.5 mg PO BID PRN #20 tablet 07/12/22 - Allergies Allergies/Adverse Reactions: Allergies Allergy/AdvReac Type Severity Reaction Status Date / Time Penicillins Allergy Intermediate Edema Verified 07/12/22 16:41 - Social History Does the pt smoke?: No Smoking Status: Never smoker Does the pt drink ETOH?: No Does the pt have substance abuse?: No - Immunizations Immunizations are current?: Yes Immunizations: TDAP >10years/unknown - POLST Patient has POLST: No PD ED PE NORMAL - Vitals Vital signs reviewed: Yes - General General: Alert and oriented X 3, No acute distress - Extremities Extremities: Other (Left elbow is tender over the medial epicondyle, range of motion is normal and painless.) - Neuro Neuro: Alert and oriented X 3, Normal speech Results - Vitals Vitals: Vital Signs - 24 hr 07/12/22 16:36 Temperature 36.0 C L Heart Rate 106 H Respiratory 18 Rate Blood Pressure 157/88 H O2 Saturation 95 Oxygen O2 Source Room air PD Medical Decision Making - ED course ED course: She was diagnosed in the clinic with tendinitis, could also be medial epicondylitis. There is no emergency medical condition present and she plans to follow-up for the x-rays already ordered as an outpatient. I am writing her for some anti-inflammatories. Discussed that generally steroid injections into joints are not done in the emergency department. Departure - Departure Disposition: 01 Home, Self Care Clinical Impression: Left elbow tendinitis Condition: Good Record reviewed to determine appropriate education?: Yes Instructions: Tendonitis and Tenosynovitis Prescriptions: Meloxicam [Mobic] 7.5 mg PO BID PRN #20 tablet PRN Reason: Pain Comments: I sent your prescription electronically to [facility] in [place]. You can go over and have the x-rays done that are already ordered and then you should follow-up with your primary care physician for further evaluation and treatment with consideration for orthopedic referral if you really think a steroid injection in the joint is appropriate. Return for new or worsening symptoms.
[2022-07-12 17:01] VITALS: BP 140/80
== END 2022-07-12 16:59 | disposition home or self-care (01) ==
LOC: ED 16:22
DX: M77.8 Other enthesopathies, not elsewhere classified (principal); R29.6 Repeated falls; M25.722 Osteophyte, left elbow
CPT/HCPCS: 73070; 99282; 99284; A9270

== ENCOUNTER 2022-07-12 17:02 | Outpatient (CLI) | payer MEDICAID ==
--- NOTE | 2022-07-13 12:01 | XRAY Report ---
PROCEDURE: Elbow 2 View LT INDICATIONS: FREQUENT FALLS TECHNIQUE: 2 views of the elbow were acquired. COMPARISON: None FINDINGS: Bones: No fractures or dislocations. No suspicious bony lesions. Radial head degenerative osteophy te is present. There is a small ossification adjacent to the distal humerus only seen on lateral view . No definitive donor site is identified. Soft tissues: No elbow joint effusion. No suspicious soft tissue calcifications. IMPRESSION: Small ossification adjacent to the distal humerus as above. No priors are available for comparison. N o definitive donor site is identified, however not seen on all views. This could represent an avulsio n injury of indeterminate age. Reviewed by: Shirin Caba MD on 07/13/2022 12:00 PM [facility] Approved by: Shirin Caba MD on 07/13/2022 12:00 PM [facility] Station ID: [id number]
== END 2022-07-12 17:03 | disposition home or self-care (01) ==
LOC: DI 17:02
PROVIDERS: ATTEND Registered Nurse
DX: R29.6 Repeated falls (principal); M25.722 Osteophyte, left elbow

== ENCOUNTER 2022-09-21 07:48 | Outpatient (CLI) | payer MEDICAID ==
[2022-09-21 12:22] LABS: ALBUMIN 3.8 g/dL (3.2-5.5); ALKALINE PHOSPHATASE 140 IU/L (42-121); ALT ALANINE AMINOTRANSFERASE 25 IU/L (10-60); AST ASPARTATE AMINOTRANSFERASE 32 IU/L (10-42); BILIRUBIN,TOTAL 0.5 mg/dL (0.2-1.0); BUN - BLOOD UREA NITROGEN 13 mg/dL (6-20); CALCIUM 9.2 mg/dL (8.5-10.3); CARBON DIOXIDE - CO2 29 mmol/L (21-32); CHLORIDE 107 mmol/L (101-111); CHOLESTEROL 147 mg/dL; CREATININE 0.7 mg/dL (0.4-1.0); GFR - MDRD 87 (>89); GLUCOSE 96 mg/dL (70-100); HDL CHOLESTEROL 49 mg/dL; LDL CHOLESTEROL,CALCULATED 71 mg/dL; LDL/HDL RATIO 1.4 (<4.4); POTASSIUM 4.1 mmol/L (3.5-5.0); SODIUM 141 mmol/L (135-145); TOTAL PROTEIN 7.5 g/dL (6.7-8.2); TRIGLYCERIDES 133 mg/dL; VLDL CHOLESTEROL 27 mg/dL
[2022-09-21 12:24] LABS: ESTIMATED AVERAGE GLUCOSE 151 mg/dL (70-100); HEMOGLOBIN A1c% 6.9 % (4.27-6.07)
== END 2022-09-21 07:49 | disposition home or self-care (01) ==
LOC: LAB.N 07:48
PROVIDERS: ATTEND Nurse Practitioner
DX: E11.8 Type 2 diabetes mellitus with unspecified complications (principal); E78.2 Mixed hyperlipidemia
CPT/HCPCS: 36415; 80053; 80061; 83036; 83721

== ENCOUNTER 2022-10-31 19:53 | Outpatient (CLI) | payer MEDICAID | END 2022-10-31 23:59 | disposition EMS.NT | LOC: EMS 19:53 | DX: T18.0XXA Foreign body in mouth, initial encounter (principal) ==

== ENCOUNTER 2022-12-28 13:20 | Outpatient (CLI) | payer MEDICAID ==
--- NOTE | 2022-12-29 09:01 | Mammography Report ---
BILATERAL DIGITAL SCREENING MAMMOGRAM 3D/2D: 12/28/2022 CLINICAL: Routine screening. Comparison is made to exams dated: 04/22/2020 mammogram and 12/16/2014 mammogram - [facility]. Both breasts are almost entirely fatty (category a/<25% glandular tissue). No significant masses, calcifications, or other findings are seen in either breast. There has been no significant interval change. IMPRESSION: NEGATIVE There is no mammographic evidence of malignancy. A 1 year screening mammogram is recommended. Based on the Tyrer Cuzick model (a risk assessment model) the patients lifetime risk is 3.5% and her 10 year risk is 1.2%. According to the ACR, ACS, and NCCN guidelines, an annual breast MRI exam sunny g with mammogram is recommended if the patients lifetime risk is 20% or greater. This exam was interpreted at Station ID: [id number]. NOTE: For mammograms, a report in lay terms will be sent to the patient. Approximately 15% of breast malignancies will not be visualized mammographically. In the management of a palpable breast mass, a negative mammogram must not discourage biopsy of a clinically suspicious lesion. Electronically Signed By: Alexis Hernandez M.D. [email or web address]:12/28/2022 18:43:33 letter sent: No_Letter ACR BI-RADS Category 1: Negative 3341F PARENCHYMAL PATTERN: (F) - The breast(s) demonstrate(s) diffuse fatty replacement. BI-RADS CATEGORY: (1) - 1 Mammogram [id number] 1 year screening LATERALITY: (B)
== END 2022-12-28 13:21 | disposition home or self-care (01) ==
LOC: DI.N 13:20
PROVIDERS: ATTEND Registered Nurse
DX: Z12.31 Encounter for screening mammogram for malignant neoplasm of breast (principal)

== ENCOUNTER 2023-07-06 06:11 | Outpatient (CLI) | payer MEDICAID | END 2023-07-06 23:59 | disposition critical access hospital (66) | LOC: EMS 06:11 | DX: R07.81 Pleurodynia (principal) | CPT/HCPCS: A0425; A0429 ==

== ENCOUNTER 2023-07-06 06:34 | Emergency (ER) | payer MEDICAID ==
[2023-07-06] MEDS ORDERED: KETOROLAC 30 MG/ML VIAL IVP STA (07:16)
[2023-07-06] MEDS ORDERED: SODIUM CHLORIDE 0.9% 1,000 ML IV STA (07:16)
[2023-07-06 07:53] LABS: BASOPHILS % (AUTO) 0.3 %; EOSINOPHILS # (AUTO) 0.1 10^3/uL (0.0-0.7); EOSINOPHILS % (AUTO) 0.8 %; HCT - HEMATOCRIT 39.4 % (37.0-47.0); HGB - HEMOGLOBIN 12.6 g/dL (12.0-16.0); LYMPHOCYTES # (AUTO) 1.4 10^3/uL (1.5-3.5); LYMPHOCYTES % (AUTO) 19.1 %; MEAN CORPUSCULAR HEMOGLOBIN 28.9 pg (27.0-31.0); MEAN CORPUSCULAR VOLUME 90.4 fL (81.0-99.0); MEAN PLATELET VOLUME 10.2 fL (7.9-10.8); MONOCYTES # (AUTO) 0.8 10^3/uL (0.0-1.0); MONOCYTES % (AUTO) 10.9 %; NEUTROPHILS % (AUTO) 68.8 %; PLT - PLATELET COUNT 144 10^3/uL (130-450); RED BLOOD COUNT 4.36 10^6/uL (4.20-5.40); RED CELL DISTRIBUTION WIDTH 13.8 % (12.0-15.0); WHITE BLOOD COUNT 7.3 x10^3/uL (4.8-10.8)
[2023-07-06 07:58] LABS: ALBUMIN/GLOBULIN RATIO 1.2 (1.0-2.2); ALKALINE PHOSPHATASE 169 IU/L (42-121); ALT ALANINE AMINOTRANSFERASE 28 IU/L (10-60); AST ASPARTATE AMINOTRANSFERASE 30 IU/L (10-42); BILIRUBIN,TOTAL 1.4 mg/dL (0.2-1.0); BUN - BLOOD UREA NITROGEN 10 mg/dL (6-20); CALCIUM 9.5 mg/dL (8.5-10.3); CARBON DIOXIDE - CO2 30 mmol/L (21-32); CHLORIDE 99 mmol/L (101-111); CK- CREATINE KINASE 110 IU/L (30-223); CREATININE 0.6 mg/dL (0.6-1.3); GFR - MDRD 103 (>89); GLUCOSE 122 mg/dL (74-104); POTASSIUM 3.7 mmol/L (3.5-4.5); SODIUM 137 mmol/L (135-145); TOTAL PROTEIN 7.3 g/dL (6.4-8.9)
[2023-07-06 07:59] LABS: LIPASE < 10 U/L (11-82)
--- NOTE | 2023-07-06 08:12 | ED Physician Documentation ---
History of Present Illness - Stated complaint Stated Complaint: RIB PX - Chief complaint Chief Complaint: General - History obtained from History obtained from: Patient - Additonal information Additional information: Patient is a 57-year-old female presenting for evaluation of generalized bodyaches and pains for the past 3 days. Patient states this started 3 days ago after receiving a deep tissue massage. She was laying on her abdomen for an hour and reports feeling achy and sore all over after the massage. She reports taking a hot shower did not drink enough water because she had never had 1 before and did not know she was supposed to.She reports she feels achy all over almost as if she has the flu. She denies any known fevers. No cough or congestion. Denies chest pain or shortness of air. No nausea vomiting or diarrhea. She has taken 2 Vicodin which she had leftover at home. Denies any known sick contacts. Review of Systems Constitutional: denies: Fever Cardiac: denies: Chest pain / pressure Respiratory: denies: Dyspnea GI: reports: Abdominal Pain. denies: Nausea, Vomiting, Diarrhea : reports: Frequency. 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: None : None HEENT: None Psych: Anxiety, Bipolar disorder, Other Musculoskeletal: Osteoarthritis, Chronic back pain, Other Derm: None - Past Surgical History Past Surgical History: Yes General: Cholecystectomy, Appendectomy Ortho: Hip replacement, Knee replacement, Other HEENT: Tonsil/Adenoidectomy - Present Medications Home Medications: Ambulatory Orders Medication Instructions Recorded Confirmed QUEtiapine [SEROquel] 500 mg PO DAILY PM 03/01/15 06/07/21 Cetirizine [ZyrTEC] 10 mg PO DAILY 04/03/15 06/07/21 Omeprazole [PriLOSEC] 20 mg PO DAILY 04/03/15 06/07/21 Gabapentin 1,600 mg PO BID 02/14/17 06/07/21 Insulin Glargine [Lantus Solostar] 27 unit SQ QDDINNER 02/14/18 06/07/21 Metformin HCl 1,000 mg PO BID 02/14/18 06/07/21 Ferrous Sulfate 325 mg PO TID #90 12/13/20 06/07/21 Meloxicam [Mobic] 7.5 mg PO BID PRN #20 tablet 07/12/22 HYDROcod/ACETAM 5/325 [[place] 5/325] 1 tablet PO Q6H PRN #10 tablet 07/06/23 cephALEXin [Keflex] 500 mg PO BID #14 cap 07/06/23 - Allergies Allergies/Adverse Reactions: Allergies Allergy/AdvReac Type Severity Reaction Status Date / Time Penicillins Allergy Intermediate Edema Verified 07/06/23 06:39 - Social History Does the pt smoke?: No Smoking Status: Never smoker Does the pt drink ETOH?: No Does the pt have substance abuse?: No - Immunizations Immunizations are current?: Yes Immunizations: TDAP >10years/unknown - POLST Patient has POLST: No PD ED PE NORMAL - General General: Alert and oriented X 3, No acute distress, Well developed/nourished - HEENT HEENT: Atraumatic, Moist mucous membranes, Pharynx benign - Neck Neck: Supple, no meningeal sign - Cardiac Cardiac: RRR, Strong equal pulses - Respiratory Respiratory: No respiratory distress, Clear bilaterally - Abdomen Abdomen: Normal bowel sounds, Soft, Non tender, Non distended - Back Back: No spinal TTP - Derm Derm: Warm and dry - Extremities Extremities: No edema, No calf tenderness / cord - Neuro Neuro: Alert and oriented X 3, No motor deficit, Normal speech Results - Vitals Vitals: Vital Signs - 24 hr 07/06/23 07/06/23 07/06/23 06:39 07:30 09:01 Temperature 36.3 C L Heart Rate 98 92 88 Respiratory 14 22 18 Rate Blood Pressure 120/98 H 111/86 H 133/103 H O2 Saturation 94 92 96 07/06/23 07/06/23 07/06/23 11:45 12:43 12:54 Temperature Heart Rate 98 92 95 Respiratory 20 17 20 Rate Blood Pressure 158/97 H O2 Saturation 98 93 96 07/06/23 07/06/23 07/06/23 13:25 14:32 15:16 Temperature Heart Rate 99 89 86 Respiratory 18 19 17 Rate Blood Pressure 135/98 H O2 Saturation 99 99 07/06/23 15:26 Temperature Heart Rate 82 Respiratory 18 Rate Blood Pressure 131/89 H O2 Saturation 99 Oxygen O2 Source Room air - EKG (time done) 0700 EKG releavant findings:: EKG personally interpreted by author of this note. Relevant findings are: Rate 85, normal sinus rhythm, no STEMI - Labs Labs: Laboratory Tests 07/06/23 07/06/23 07/06/23 07:30 07:35 07:35 WBC 7.3 RBC 4.36 Hgb 12.6 Hct 39.4 MCV 90.4 MCH 28.9 MCHC 32.0 RDW 13.8 Plt Count 144 MPV 10.2 Neut # (Auto) 5.0 Lymph # (Auto) 1.4 L Trigg # (Auto) 0.8 Eos # (Auto) 0.1 Baso # (Auto) 0.0 Absolute Nucleated RBC 0.00 Nucleated RBC % 0.0 Sodium 137 Potassium 3.7 Chloride 99 L Carbon Dioxide 30 Anion Gap 8.0 BUN 10 Creatinine 0.6 Estimated GFR (MDRD) 103 Glucose 122 H Calcium 9.5 Total Bilirubin 1.4 H AST 30 ALT 28 Alkaline Phosphatase 169 H Total Creatine Kinase 110 Troponin I High Sens 3.8 Total Protein 7.3 Albumin 4.0 Globulin 3.3 Albumin/Globulin Ratio 1.2 Lipase < 10 L Urine Color Urine Clarity Urine pH Ur Specific [place] Urine Protein Urine Glucose (UA) Urine Ketones Urine Occult Blood Urine Nitrite Urine Bilirubin Urine Urobilinogen Ur Leukocyte Esterase Urine RBC Urine WBC Ur Squamous Epith Cells Urine Bacteria Urine Mucus Ur Microscopic Review Urine Culture Comments Nasal Adenovirus (PCR) NOT DETECTED Nasal B. parapertussis DNA (PCR) NOT DETECTED Nasal Coronavir 229E PCR NOT DETECTED Nasal Coronavir HKU1 PCR NOT DETECTED Nasal Coronavir NL63 PCR NOT DETECTED Nasal Coronavir OC43 PCR NOT DETECTED Nasal Enterovir/Rhinovir PCR NOT DETECTED Nasal Influenza B PCR NOT DETECTED Nasal Influenza A PCR NOT DETECTED Nasal Parainfluen 1 PCR NOT DETECTED Nasal Parainfluen 2 PCR NOT DETECTED Nasal Parainfluen 3 PCR NOT DETECTED Nasal Parainfluen 4 PCR NOT DETECTED Nasal RSV (PCR) NOT DETECTED Nasal B.pertussis DNA PCR NOT DETECTED Nasal C.pneumoniae (PCR) NOT DETECTED Conner Human Metapneumo PCR NOT DETECTED Nasal M.pneumoniae (PCR) NOT DETECTED Nasal SARS-CoV-2 (PCR) NOT DETECTED 07/06/23 10:10 WBC RBC Hgb Hct MCV MCH MCHC RDW Plt Count MPV Neut # (Auto) Lymph # (Auto) Trigg # (Auto) Eos # (Auto) Baso # (Auto) Absolute Nucleated RBC Nucleated RBC % Sodium Potassium Chloride Carbon Dioxide Anion Gap BUN Creatinine Estimated GFR (MDRD) Glucose Calcium Total Bilirubin AST ALT Alkaline Phosphatase Total Creatine Kinase Troponin I High Sens Total Protein Albumin Globulin Albumin/Globulin Ratio Lipase Urine Color YELLOW Urine Clarity SL. CLOUDY Urine pH 5.5 Ur Specific [place] >=1.030 H Urine Protein NEGATIVE Urine Glucose (UA) 500 H Urine Ketones NEGATIVE Urine Occult Blood NEGATIVE Urine Nitrite POSITIVE H Urine Bilirubin NEGATIVE Urine Urobilinogen 0.2 (NORMAL) Ur Leukocyte Esterase NEGATIVE Urine RBC 0-5 Urine WBC >25 H Ur Squamous Epith Cells FEW Squamous Urine Bacteria Moderate H Urine Mucus Few Strands Ur Microscopic Review INDICATED Urine Culture Comments INDICATED Nasal Adenovirus (PCR) Nasal B. parapertussis DNA (PCR) Nasal Coronavir 229E PCR Nasal Coronavir HKU1 PCR Nasal Coronavir NL63 PCR Nasal Coronavir OC43 PCR Nasal Enterovir/Rhinovir PCR Nasal Influenza B PCR Nasal Influenza A PCR Nasal Parainfluen 1 PCR Nasal Parainfluen 2 PCR Nasal Parainfluen 3 PCR Nasal Parainfluen 4 PCR Nasal RSV (PCR) Nasal B.pertussis DNA PCR Nasal C.pneumoniae (PCR) Conner Human Metapneumo PCR Nasal M.pneumoniae (PCR) Nasal SARS-CoV-2 (PCR) PD Medical Decision Making - ED course Complexity details: reviewed results, re-evaluated patient, d/w patient ED course: Patient is a 57-year-old female presenting for evaluation of generalized body pains after receiving a deep tissue massage 3 days ago. Her vital signs are stable. Her labs were reviewed including CBC, chemistries, urine analysis. She does have signs of a urine infection. As she describes allover body pain I did obtain a troponin and EKG without signs of acute ischemia. She initially felt better after IV fluids and Toradol but reported having pain again. She complained primarily of epigastric and upper abdominal pain. She then had also reported some pain in her back. She did receive IV Dilaudid with improvement in her symptoms. We were planning on obtaining a CT scan to rule out other causes of her pain but unfortunately the CT machine broke prior to the patient getting her scan done and was unable to be fixed for the remainder of the shift.On reevaluation her pain now primarily being to be in the epigastric region. I have also concern for process such as appendicitis, abdominal perforation given her abdomen. I did obtain an ultrasound to ensure she has no signs of hydronephrosis that could be related to a kidney stone.Respiratory swab is negative. Patient is feeling better here. She is ambulatory. She is conversant. She is counseled on treatment plan for urine infection as well as need for close follow-up and concerning symptoms to return for. 1347 - There has been a significant delay as the CT machine unexpectedly went down and is currently out of service. Departure - Departure Disposition: Home, Self Care Clinical Impression: Generalized pain, UTI (urinary tract infection) Condition: Stable Instructions: ED UTI Cystitis Female Prescriptions: cephALEXin [Keflex] 500 mg PO BID #14 cap HYDROcod/ACETAM 5/325 [[place] 5/325] 1 tablet PO Q6H PRN #10 tablet PRN Reason: Pain Comments: Your testing today shows that you have a urine infection. Your other testing that was reassuring there is no signs of any heart attacks or electrolyte issues. Unfortunately we are unable to obtain a CT scan to evaluate your abdomen but were able to do an ultrasound to make sure that there is no signs of any blockages to your kidneys which there is not. Your abdominal pain is also not in a location that would suggest appendicitis. I have sent a prescription for an antibiotic as well as pain medication to [facility] in [place]. Please have a low threshold to return to the emergency department if you develop any new or worsening symptoms. I am prescribing a short course of narcotic pain medication for you. These are potentially dangerous and addictive medications that should be used carefully. These medications may constipate you. Take an gbkn-qqx-xladfml stool softener (docusate) twice daily with plenty of water while taking these medications. If you go 24 hours without a bowel movement, take [id number] miralax, per package instructions. Do not drink or drive while taking these medications. If you received narcotic or sedating medications while in the emergency department, do not drive for 24 hours. Store this medication in a safe, secure place and out of reach of children. It is a violation of federal law to give or sell this medication to another person or to use in a manner other than prescribed. The ED will not refill narcotic prescriptions, including prescriptions lost or stolen. To dispose of unwanted medications: 1. [facility] at [address] in [place] has a medication drop box. They accept prescription medications (in pill form) Tuesday through Tuesday 9:00 a.m. to 5:00 p.m. 2. The [facility] Police Department accepts prescription medications (in pill form only) for disposal year round. Call for more information. 3. Contact the [facility] for the next [facility] sponsored prescription drug collection event. , [phone], or [phone]; Note that many narcotic pain relievers also contain Tylenol/acetaminophen. Pl ease ensure that your total dose of acetaminophen from all sources does not exceed 3 g (3000 mg) per day. There was an irregularity seen on your chest x-ray which could be from i nflammation. You do need a follow-up chest x-ray to see if this improves Or if you need further testing. XRAY RESULT: Limited single view portable radiograph. Mildly prominent int erstitium and right infrahilar opacity, probably infectious or inflammatory versus superimposed edema. Consider future imaging surveillance to assess for resolution. Forms: PCP List Discharge Date/Time: 07/06/23 15:32
[2023-07-06 08:17] LABS: TROPONIN I HIGH SENSITIVITY 3.8 ng/L (2.3-14.8)
--- NOTE | 2023-07-06 08:34 | XRAY Report ---
PROCEDURE: Chest 1V INDICATIONS: pain TECHNIQUE: One view of the chest was acquired. COMPARISON: 05/28/2022 FINDINGS: Surgical changes and devices: None. Lungs and pleura: Mildly prominent interstitium. Infrahilar opacity is seen on the right. No pleural effusions. Mediastinum: Normal heart size Bones and chest wall: Degenerative changes. IMPRESSION: Limited single view portable radiograph. Mildly prominent interstitium and right infrahilar opacity, probably infectious or inflammatory versus superimposed edema. Consider future imaging surveillance t o assess for resolution. Reviewed by: Tye Argueta MD on 07/06/2023 8:33 AM PST Approved by: Tye Argueta MD on 07/06/2023 8:33 AM PST Station ID: [id number]
[2023-07-06 08:46] LABS: B. PARAPERTUSSIS- RESP PCR PAN NOT DETECTED; B. PERTUSSIS- RESP PCR PANEL NOT DETECTED; C. PNEUMONIAE- RESP PCR PANEL NOT DETECTED; CORONAVIRUS 229E-RESP PCR NOT DETECTED; CORONAVIRUS HKU1-RESP PCR NOT DETECTED; CORONAVIRUS NL63-RESP PCR NOT DETECTED; CORONAVIRUS OC43-RESP PCR NOT DETECTED; HUMAN METAPNEUMOVIRUS NOT DETECTED; INFLUENZA A- RESP PCR PANEL NOT DETECTED; INFLUENZA B - RESP PCR PANEL NOT DETECTED; M. PNEUMONIAE- RESP PCR PANEL NOT DETECTED; PARAINFLUENZA VIRUS 1 NOT DETECTED; PARAINFLUENZA VIRUS 2 NOT DETECTED; PARAINFLUENZA VIRUS 3 NOT DETECTED; PARAINFLUENZA VIRUS 4 NOT DETECTED; RHINOVIRUS/ENTEROVIRUS NOT DETECTED; RSV- RESP PCR PANEL NOT DETECTED; SARS-CoV-2 -RESP PCR PANEL NOT DETECTED
[2023-07-06 10:22] LABS: BILIRUBIN,URINE NEGATIVE (NEGATIVE); GLUCOSE, URINE (UA) 500 mg/dL (NEGATIVE); KETONES,URINE (UA) NEGATIVE (NEGATIVE); LEUKOCYTE ESTERASE, URINE NEGATIVE (NEGATIVE); NITRITE,URINE POSITIVE (NEGATIVE); OCCULT BLOOD,URINE NEGATIVE (NEGATIVE); PH,URINE 5.5 PH (5.0-7.5); PROTEIN,URINE NEGATIVE (NEGATIVE); UROBILINOGEN,URINE 0.2 (NORMAL) E.U./dL (NORMAL)
[2023-07-06 10:27] LABS: BACTERIA,URINE Moderate /HPF (None Seen); CLARITY,URINE SL. CLOUDY (CLEAR); MUCUS,URINE Few Strands; RBC,URINE 0-5 /HPF (0-5); SQUAMOUS EPITHELIAL CELL,UR FEW Squamous (<= Few); WBC,URINE >25 /HPF (0-5)
[2023-07-06] MEDS ORDERED: MORPHINE 2 MG/ML CARPUJECT IVP STA (10:35)
[2023-07-06] MEDS ORDERED: cefTRIAXone 1 GM in SODIUM CHLORIDE 0.9% MINIBAG 100 ML IV STA (10:36)
[2023-07-06] MEDS ORDERED: iohexoL-300 100 ML VIAL ONE (11:00)
[2023-07-06] MEDS ORDERED: HYDROmorphone 1 MG/ML CARPUJECT IVP STA (13:04)
[2023-07-06 14:41] VITALS: O2SAT 99
--- NOTE | 2023-07-06 15:15 | Ultrasound Report ---
PROCEDURE: Renal (Retroperitoneal) INDICATIONS: flank pain/uti TECHNIQUE: Real-time scanning was performed of the retroperitoneal organs, with image documentation. COMPARISON: None. FINDINGS: Kidneys: Kidneys are normal in size. Right kidney measures 11.8 cm long; left kidney measures 12.1 cm long. Right renal cortical thickness is 1.4 cm; left renal cortical thickness is 1.3 cm. No rosa d masses, hydronephrosis, or nephrolithiasis. Bladder: Not visualized. Miscellaneous: No free abdominal fluid. IMPRESSION: No hydronephrosis. Reviewed by: Nolan Cornejo MD on 07/06/2023 3:14 PM PST Approved by: Nolan Cornejo MD on 07/06/2023 3:14 PM PST Station ID: [id number]
[2023-07-06 15:32] VITALS: BP 131/89
== END 2023-07-06 15:32 | disposition home or self-care (01) ==
LOC: EDBD → ED 06:34
DX: R52 Pain, unspecified (principal); N39.0 Urinary tract infection, site not specified; E11.9 Type 2 diabetes mellitus without complications; Z79.4 Long term (current) use of insulin; Z79.84 Long term (current) use of oral hypoglycemic drugs
CPT/HCPCS: 36415; 71045; 76770; 80053; 81001; 82550; 83690; 84484; 85025; 87086; 87633; 93005; 96365; 96375; 99284; J1170; 81003; 87077; 87181

== ENCOUNTER 2023-07-18 08:00 | Outpatient (CLI) | payer MEDICAID ==
--- NOTE | 2023-07-18 16:15 | XRAY Report ---
PROCEDURE: Hip 2 View LT INDICATIONS: LEFT HIP PAIN TECHNIQUE: 2 views of the hip were acquired. COMPARISON: None. FINDINGS: Bones: No fractures or dislocations. No suspicious bony lesions. Mild left hip osteoarthrosis. Rig ht total hip arthroplasty is partially evaluated. Soft tissues: No suspicious soft tissue calcifications or masses. IMPRESSION: No acute bony abnormality. Mild left hip osteoarthrosis. If pain persists with conservative managemen t, consider further evaluation with cross-sectional imaging such as CT or MRI. Reviewed by: Pati England MD on 07/18/2023 4:13 PM PST Approved by: Pati England MD on 07/18/2023 4:13 PM PST Station ID: [id number]
== END 2023-07-18 23:59 | disposition home or self-care (01) ==
LOC: DI.WOS 08:00
PROVIDERS: ATTEND Physician Assistant Surgical
DX: M16.12 Unilateral primary osteoarthritis, left hip (principal)

== ENCOUNTER 2023-07-29 08:36 | Outpatient (CLI) | payer MEDICAID ==
[2023-07-29 12:24] LABS: BASOPHILS % (AUTO) 0.5 %; EOSINOPHILS # (AUTO) 0.1 10^3/uL (0.0-0.7); EOSINOPHILS % (AUTO) 1.8 %; HCT - HEMATOCRIT 40.8 % (37.0-47.0); LYMPHOCYTES # (AUTO) 1.6 10^3/uL (1.5-3.5); MEAN CORPUSCULAR HEMOGLOBIN 28.8 pg (27.0-31.0); MEAN CORPUSCULAR HGB CONC 31.9 g/dL (32.0-36.0); MEAN CORPUSCULAR VOLUME 90.3 fL (81.0-99.0); MEAN PLATELET VOLUME 9.9 fL (7.9-10.8); MONOCYTES # (AUTO) 0.4 10^3/uL (0.0-1.0); MONOCYTES % (AUTO) 7.2 %; NEUTROPHILS # (AUTO) 3.9 10^3/uL (1.5-6.6); NEUTROPHILS % (AUTO) 64.2 %; PLT - PLATELET COUNT 163 10^3/uL (130-450); RED BLOOD COUNT 4.52 10^6/uL (4.20-5.40); RED CELL DISTRIBUTION WIDTH 13.6 % (12.0-15.0); WHITE BLOOD COUNT 6.1 x10^3/uL (4.8-10.8)
[2023-07-29 12:47] LABS: ALBUMIN 4.1 g/dL (3.2-5.5); ALBUMIN/GLOBULIN RATIO 1.2 (1.0-2.2); ALKALINE PHOSPHATASE 144 IU/L (42-121); ALT ALANINE AMINOTRANSFERASE 24 IU/L (10-60); AST ASPARTATE AMINOTRANSFERASE 29 IU/L (10-42); BILIRUBIN,TOTAL 0.6 mg/dL (0.2-1.0); BUN - BLOOD UREA NITROGEN 16 mg/dL (6-20); CALCIUM 9.5 mg/dL (8.5-10.3); CARBON DIOXIDE - CO2 28 mmol/L (21-32); CHLORIDE 104 mmol/L (101-111); CHOL/HDL RATIO 3.4 (<4.4); CHOLESTEROL 151 mg/dL; CREATININE 0.6 mg/dL (0.6-1.3); GFR - MDRD 103 (>89); GLUCOSE 144 mg/dL (74-104); HDL CHOLESTEROL 45 mg/dL; LDL CHOLESTEROL,CALCULATED 59 mg/dL; LDL/HDL RATIO 1.3 (<4.4); POTASSIUM 4.2 mmol/L (3.5-4.5); SODIUM 138 mmol/L (135-145); TOTAL PROTEIN 7.4 g/dL (6.4-8.9); TRIGLYCERIDES 234 mg/dL (48-352); VLDL CHOLESTEROL 47 mg/dL
[2023-07-29 12:49] LABS: THYROID STIMULATING HORMONE 3.28 uIU/mL (0.34-5.60)
[2023-07-29 13:50] LABS: ESTIMATED AVERAGE GLUCOSE 134 mg/dL (70-100); HEMOGLOBIN A1c% 6.3 % (4.27-6.07)
== END 2023-07-29 08:37 | disposition home or self-care (01) ==
LOC: LAB.N 08:36
PROVIDERS: ATTEND Registered Nurse
DX: E11.9 Type 2 diabetes mellitus without complications (principal); Z13.220 Encounter for screening for lipoid disorders; Z13.29 Encounter for screening for other suspected endocrine disorder; Z13.0 Encounter for screening for diseases of the blood and blood-forming organs and certain disorders involving the immune mechanism; Z13.228 Encounter for screening for other metabolic disorders
CPT/HCPCS: 36415; 80061; 83036; 83721; 84443; 85025

== ENCOUNTER 2023-12-28 07:43 | Outpatient (CLI) | payer MEDICAID ==
--- NOTE | 2023-12-28 09:51 | XRAY Report ---
PROCEDURE: Hip w/Pelvis 2-3V RT INDICATIONS: HIP PAIN, RIGHT TECHNIQUE: 3 views of the hip were acquired. COMPARISON: Radiograph left hip 07/18/2023. FINDINGS: Bones: Total right hip arthroplasty hardware is in place without evidence of perihilar lucency that w ould indicate infection or loosening. No fracture or subluxation seen. Degenerative changes of the pa rtially visualized lumbar spine. Osteoarthritic degenerative changes of the left hip also seen. Soft tissues: The visualized bowel gas pattern is unremarkable IMPRESSION: Surgical changes of the right hip arthroplasty without acute osseous findings Reviewed by: Shawn Gomes MD on 12/28/2023 9:49 AM PDT Approved by: Shawn Gomes MD on 12/28/2023 9:49 AM PDT Station ID: [id number]
== END 2023-12-28 07:44 | disposition home or self-care (01) ==
LOC: DI.N 07:43
PROVIDERS: ATTEND Physician Assistant Surgical
DX: M25.551 Pain in right hip (principal); M16.12 Unilateral primary osteoarthritis, left hip; Z96.641 Presence of right artificial hip joint

== ENCOUNTER 2024-01-12 09:29 | Outpatient (CLI) | payer MEDICAID ==
--- NOTE | 2024-02-01 13:01 | XRAY Report ---
Foot 3+V RT HISTORY: 58 years of age, FOOT PAIN, RIGHT TECHNIQUE: Foot 3+V RT COMPARISON: 01/13/2024. FINDINGS/IMPRESSION: Minimally displaced, intra-articular fracture of the base of the first distal phalanx, unchanged from prior exam. No interval healing. Screw fixation of the first proximal phalanx. Osseous fusion of the second distal interphalangeal ren nt. Chronic deformity about the second proximal interphalangeal joint. Mild degenerative changes of f irst metatarsophalangeal joint. Posterior calcaneal enthesophyte. Reviewed by: iRya Martin MD on 02/01/2024 12:59 PM PDT Approved by: Riya Martin MD on 02/01/2024 12:59 PM PDT Station ID: [id number]
== END 2024-01-12 23:59 | disposition home or self-care (01) ==
LOC: DI.N 09:29
PROVIDERS: ATTEND Orthopaedic Surgery
DX: S92.421D Displaced fracture of distal phalanx of right great toe, subsequent encounter for fracture with routine healing (principal); M19.071 Primary osteoarthritis, right ankle and foot; M77.31 Calcaneal spur, right foot; M20.61 Acquired deformities of toe(s), unspecified, right foot

== ENCOUNTER 2024-01-13 12:10 | Outpatient (CLI) | payer MEDICAID ==
[2024-01-13 12:43] LABS: CALCIUM 9.7 mg/dL (8.5-10.3); CREATININE 0.5 mg/dL (0.6-1.3); POTASSIUM 4.2 mmol/L (3.5-4.5)
[2024-01-13 13:18] LABS: ESTIMATED AVERAGE GLUCOSE 128 mg/dL (70-100); HEMOGLOBIN A1c% 6.1 % (4.27-6.07)
--- NOTE | 2024-01-13 18:16 | XRAY Report ---
PROCEDURE: Foot 1-2V RT (Weight Bearing) INDICATIONS: CRUSHING INJURY OF RIGHT LESSER TOE TECHNIQUE: 2 weightbearing views of the foot were acquired. COMPARISON: None. FINDINGS: Bones: There is a comminuted fracture seen involving the distal phalanx of the great toe, with intra -articular involvement. No suspicious bony lesions. There is made of fusion of the distal interphalangeal joint of the second toe. Postoperative change of the first ray can be seen. Generalized degenerative changes are seen. Incidental note is made of an enthesophyte at the Achilles insertion. Soft tissues: No tibiotalar joint effusion. Achilles tendon appears normal. IMPRESSION: Commuted fracture of the distal phalanx of the great toe, with intra-articular involvement. Postoperative change of the first ray noted. Reviewed by: Rico Davis MD on 01/13/2024 5:15 PM MATTIE Approved by: Rico Davis MD on 01/13/2024 5:15 PM MATTIE Station ID: [id number]
== END 2024-01-13 12:11 | disposition home or self-care (01) ==
LOC: LAB 12:10
PROVIDERS: ATTEND Registered Nurse
DX: E11.9 Type 2 diabetes mellitus without complications (principal); S97.121A Crushing injury of right lesser toe(s), initial encounter; S92.421A Displaced fracture of distal phalanx of right great toe, initial encounter for closed fracture
CPT/HCPCS: 36415; 80048; 83036

== ENCOUNTER 2024-01-23 14:54 | Emergency (ER) | payer MEDICAID ==
[2024-01-23 15:15] VITALS: BP 160/86; O2SAT 98
--- NOTE | 2024-01-23 16:11 | ED Physician Documentation ---
History of Present Illness - Stated complaint Stated Complaint: RT FOOT PX - Chief complaint Chief Complaint: Ext Problem - History obtained from History obtained from: Patient - History of Present Illness Timing: How many weeks ago (1) Pain level max: 6 Pain level now: 6 - Additonal information Additional information: Patient is a 58-year-old female who states that about 10 days ago she dropped a piece of wood on her right great toe. She went to her doctor and was found to have a fracture of the distal phalanx of the right great toe. She states that she has been continuing to walk on the toe and having increasing pain. Called her doctor who stated they did not have time to see her so sent her here for evaluation. No swelling. No redness or tingling. No numbness. Worse with walking, better with rest. Review of Systems Constitutional: denies: Fever, Chills PD PAST MEDICAL HISTORY - Past Medical History Past Medical History: Yes Cardiovascular: None, High cholesterol Respiratory: Asthma, Sleep apnea, Other Neuro: None Endocrine/Autoimmune: Type 2 diabetes GI: GERD, Hepatitis PROFILE GRINDER: None : None HEENT: None Psych: Anxiety, Bipolar disorder, Other Musculoskeletal: Osteoarthritis, Chronic back pain, Other Derm: None - Past Surgical History Past Surgical History: Yes General: Cholecystectomy, Appendectomy Ortho: Hip replacement, Knee replacement, Other HEENT: Tonsil/Adenoidectomy - Present Medications Home Medications: Ambulatory Orders Medication Instructions Recorded Confirmed QUEtiapine [SEROquel] 500 mg PO DAILY PM 03/01/15 06/07/21 Cetirizine [ZyrTEC] 10 mg PO DAILY 04/03/15 06/07/21 Omeprazole [PriLOSEC] 20 mg PO DAILY 04/03/15 06/07/21 Gabapentin 1,600 mg PO BID 02/14/17 06/07/21 Insulin Glargine [Lantus Solostar] 27 unit SQ QDDINNER 02/14/18 06/07/21 Metformin HCl 1,000 mg PO BID 02/14/18 06/07/21 Ferrous Sulfate 325 mg PO TID #90 12/13/20 06/07/21 Meloxicam [Mobic] 7.5 mg PO BID PRN #20 tablet 07/12/22 HYDROcod/ACETAM 5/325 [[place] 5/325] 1 tablet PO Q6H PRN #10 tablet 07/06/23 cephALEXin [Keflex] 500 mg PO BID #14 cap 07/06/23 HYDROcod/ACETAM 5/325 [[place] 5/325] 1 - 2 ea PO Q6H PRN #12 tablet 01/23/24 - Allergies Allergies/Adverse Reactions: Allergies Allergy/AdvReac Type Severity Reaction Status Date / Time Penicillins Allergy Intermediate Edema Verified 01/23/24 15:10 - Social History Does the pt smoke?: No Smoking Status: Never smoker Does the pt drink ETOH?: No Does the pt have substance abuse?: No - Immunizations Immunizations are current?: Yes Immunizations: TDAP >10years/unknown - POLST Patient has POLST: No PD ED PE NORMAL - Vitals Vital signs reviewed: Yes - General General: Alert and oriented X 3, No acute distress - HEENT HEENT: Moist mucous membranes - Derm Derm: Warm and dry - Extremities Extremities: Other (Tender palpation over the distal phalanx of the right great toe. Neurovascular intact. No deformity. Otherwise normal examination of the right foot) - Neuro Neuro: Alert and oriented X 3 - Psych Psych: Normal mood, Normal affect Results - Vitals Vitals: Vital Signs - 24 hr 01/23/24 14:58 Temperature 36.5 C Heart Rate 100 Respiratory 18 Rate Blood Pressure 160/86 H O2 Saturation 98 Oxygen O2 Source Room air PD Medical Decision Making - ED course Complexity details: reviewed old records, considered differential, d/w patient ED course: Reviewed the patient's x-ray from her walk-in clinic visit. Placed in a postoperative shoe. Will prescribe a small amount of pain medication for her. Will have her follow-up with her doctor for further care. Patient counseled regarding signs and symptoms for which I believe and urgent re-evaluation would be necessary. Patient with good understanding of and agreement to plan and is comfortable going home at this time This document was made in part using voice recognition software. While efforts are made to proofread this document, sound alike and grammatical errors may occur. Departure - Departure Disposition: 01 Home, Self Care Clinical Impression: Fractured great toe Qualifiers: Encounter type: initial encounter Fracture type: closed Phalanx: distal Fracture alignment: nondisplaced Laterality: right Qualified Code(s): S92.424A - Nondisplaced fracture of distal phalanx of right great toe, initial encounter for closed fracture Condition: Good Instructions: ED Fx Toe Closed Follow-Up: Joanne Pace ARNP [Primary Care Provider] - Within 1 week Prescriptions: HYDROcod/ACETAM 5/325 [[place] 5/325] 1 - 2 ea PO Q6H PRN #12 tablet PRN Reason: Pain Comments: Your prescription was sent to [facility] in [place]. You have a fracture of the distal phalanx of your great toe. Please stay in the postoperative shoe until you are released by your doctor, orthopedics or medicaid analyst. I am prescribing a short course of narcotic pain medication for you. These are potentially dangerous and addictive medications that should be used carefully. These medications may constipate you. Take an micv-cnu-mhxcdqd stool softener (docusate) twice daily with plenty of water while taking these medications. If you go 24 hours without a bowel movement, take fsms-byw-gkgjful miralax, per package instructions. Do not drink or drive while taking these medications. If you received narcotic or sedating medications while in the emergency department, do not drive for 24 hours. Store this medication in a safe, secure place and out of reach of children. It is a violation of federal law to give or sell this medication to another person or to use in a manner other than prescribed. The ED will not refill narcotic prescriptions, including prescriptions lost or stolen. To dispose of unwanted medications: 1. [facility] at [address] in [place] has a medication drop box. They accept prescription medications (in pill form) Tuesday through Tuesday 9:00 a.m. to 5:00 p.m. 2. The [facility] Police Department accepts prescription medications (in pill form only) for disposal year round. Call for more information. 3. Contact the [facility] for the next [facility] sponsored prescription drug collection event. , [phone], or [phone]; Forms: PCP List
== END 2024-01-23 16:25 | disposition home or self-care (01) ==
LOC: ED 14:54
DX: S92.424A Nondisplaced fracture of distal phalanx of right great toe, initial encounter for closed fracture (principal); W20.8XXA Other cause of strike by thrown, projected or falling object, initial encounter
CPT/HCPCS: 99282; 99284

== ENCOUNTER 2024-01-31 12:24 | Outpatient (CLI) | payer MEDICAID ==
[~2024-01-31 12:24] MED LIST: BUPIVACAINE 0.5% PF 10 ML VIAL ONE; LIDOCAINE-MPF 1% 5 ML VIAL ONE; TRIAMCINOLONE 40 MG/ML VIAL ONE; iohexoL-240 10 ML VIAL IVP ONE
[2024-01-31] MEDS: iohexoL-240 10 ML VIAL IVP ONE (13:30)
[2024-01-31] MEDS: BUPIVACAINE 0.5% PF 10 ML VIAL IM ONE (13:32)
[2024-01-31] MEDS: LIDOCAINE-MPF 1% 5 ML VIAL TD ONE (13:32)
[2024-01-31] MEDS: TRIAMCINOLONE 40 MG/ML VIAL IM ONE (13:33)
--- NOTE | 2024-02-01 12:38 | XRAY Report ---
PROCEDURE: Inj/Aspiration Major Joint INDICATIONS: DJD L HIP FLUORO DOSAGE: Air kerma, 1.6 mGy FLUORO TIME: 0.1 MIN TECHNIQUE: The indications, alternatives, benefits, risks, and complications of the procedure were explained to the patient. Written informed consent was obtained and placed in the chart. The patient was placed in an appropriate position on the fluoroscopy table, and a site was chosen for percutaneous access un katt fluoroscopic guidance. Local anesthetic was administered using a 1% lidocaine solution. A hypod ermic or spinal needle was then used to access the symptomatic joint. Intra-articular location of th e needle tip was confirmed by injecting a small amount of contrast, followed by steroid administratio n. The needle was then withdrawn, and a bandage applied to the puncture site. FINDINGS: Joint injected: joint left hip Medications injected: 7 mL of 40 mg/mL Kenalog and 0.5% Ropivacaine mixture. 4 cc of contrast was g iven. Complications: None. IMPRESSION: Successful fluoroscopically guided administration of steroid and anaesthetic solution into the left h ip joint. Reviewed by: Shawn Gomes MD on 02/01/2024 12:36 PM PDT Approved by: Shawn Gomes MD on 02/01/2024 12:36 PM PDT Station ID: [id number]
== END 2024-01-31 12:25 | disposition home or self-care (01) ==
LOC: DI 12:24
PROVIDERS: ATTEND Physician Assistant Surgical
DX: M16.12 Unilateral primary osteoarthritis, left hip (principal)
CPT/HCPCS: 20610; 77002; Q9966

== ENCOUNTER 2024-02-07 11:17 | Outpatient (CLI) | payer MEDICAID ==
--- NOTE | 2024-02-08 13:43 | Mammography Report ---
BILATERAL DIGITAL SCREENING MAMMOGRAM 3D/2D: 02/07/2024 CLINICAL: Routine screening. Comparison is made to exams dated: 12/28/2022 mammogram, 04/22/2020 mammogram, and 12/16/2014 mammogram - [facility]. Both breasts are almost entirely fatty (category a/<25% glandular tissue). No significant masses, calcifications, or other findings are seen in either breast. There has been no significant interval change. IMPRESSION: NEGATIVE There is no mammographic evidence of malignancy. A 1 year screening mammogram is recommended. Based on the Tyrer Cuzick model (a risk assessment model) the patient's lifetime risk is 3.4% and her 10 year risk is 1.2%. According to the ACR, ACS, and NCCN guidelines, an annual breast MRI exam sunny g with mammogram is recommended if the patient's lifetime risk is 20% or greater. This exam was interpreted at Station ID: [id number]. NOTE: For mammograms, a report in lay terms will be sent to the patient. Approximately 15% of breast malignancies will not be visualized mammographically. In the management of a palpable breast mass, a negative mammogram must not discourage biopsy of a clinically suspicious lesion. Electronically Signed By: Pati England M.D., Ph.D. handy/marilee:02/07/2024 16:27:18 letter sent: No_Letter ACR BI-RADS Category 1: Negative 3341F PARENCHYMAL PATTERN: (F) - The breast(s) demonstrate(s) diffuse fatty replacement. BI-RADS CATEGORY: (1) - 1 RECOMMENDATION: (ANNUAL) - Recommend routine annual screening mammography. [id number] 1 year screening LATERALITY: (B)
== END 2024-02-07 11:18 | disposition home or self-care (01) ==
LOC: DI.N 11:17
PROVIDERS: ATTEND Registered Nurse
DX: Z12.31 Encounter for screening mammogram for malignant neoplasm of breast (principal)

== ENCOUNTER 2024-02-28 17:34 | Emergency (ER) | payer MEDICAID ==
--- NOTE | 2024-02-28 20:34 | ED Physician Documentation ---
History of Present Illness - Stated complaint Stated Complaint: RASH - Chief complaint Chief Complaint: General - History obtained from History obtained from: Patient - History of Present Illness Timing: How many days ago (2) Pain level max: 6 Pain level now: 6 - Additonal information Additional information: Patient is a 58-year-old female who presents to the emergency department the rash to the left flank. Started 2 days ago, goes from the mid back down the left flank to the left breast. She states that there were vesicles on the rash but she got into the shower and they burst. Complains of increasing pain. Not itching. Nothing makes it better or worse. Has not had similar symptoms previously. No fevers. No chills. No rhinorrhea, cough or congestion. Review of Systems Constitutional: denies: Fever, Chills GI: denies: Vomiting Musculoskeletal: denies: Neck pain, Back pain PD PAST MEDICAL HISTORY - Past Medical History Past Medical History: Yes Cardiovascular: High cholesterol Respiratory: Asthma, Sleep apnea, Other Neuro: None Endocrine/Autoimmune: Type 2 diabetes GI: GERD, Hepatitis DEPARTMENT SPECIALIST: None : None HEENT: None Psych: Anxiety, Bipolar disorder, Other Musculoskeletal: Osteoarthritis, Chronic back pain, Other Derm: None - Past Surgical History Past Surgical History: Yes General: Cholecystectomy, Appendectomy Ortho: Hip replacement, Knee replacement, Other HEENT: Tonsil/Adenoidectomy - Present Medications Home Medications: Ambulatory Orders Medication Instructions Recorded Confirmed QUEtiapine [SEROquel] 500 mg PO DAILY PM 03/01/15 06/07/21 Cetirizine [ZyrTEC] 10 mg PO DAILY 04/03/15 06/07/21 Omeprazole [PriLOSEC] 20 mg PO DAILY 04/03/15 06/07/21 Gabapentin 1,600 mg PO BID 02/14/17 06/07/21 Insulin Glargine [Lantus Solostar] 27 unit SQ QDDINNER 02/14/18 06/07/21 Metformin HCl 1,000 mg PO BID 02/14/18 06/07/21 Ferrous Sulfate 325 mg PO TID #90 12/13/20 06/07/21 Meloxicam [Mobic] 7.5 mg PO BID PRN #20 tablet 07/12/22 HYDROcod/ACETAM 5/325 [[place] 5/325] 1 tablet PO Q6H PRN #10 tablet 07/06/23 cephALEXin [Keflex] 500 mg PO BID #14 cap 07/06/23 HYDROcod/ACETAM 5/325 [[place] 5/325] 1 - 2 ea PO Q6H PRN #12 tablet 01/23/24 HYDROcod/ACETAM 5/325 [[place] 5/325] 1 - 2 ea PO Q6H PRN #10 tablet 02/28/24 Valacyclovir HCl [Valtrex] 1,000 mg PO TID #21 tablet 02/28/24 predniSONE [Deltasone] 10 mg PO [id number] #42 tab 02/28/24 - Allergies Allergies/Adverse Reactions: Allergies Allergy/AdvReac Type Severity Reaction Status Date / Time Penicillins Allergy Intermediate Edema Verified 02/28/24 17:41 - Social History Does the pt smoke?: No Smoking Status: Former smoker Does the pt drink ETOH?: No Does the pt have substance abuse?: No - Immunizations Immunizations are current?: Yes Immunizations: TDAP >10years/unknown - POLST Patient has POLST: No PD ED PE NORMAL - Vitals Vital signs reviewed: Yes - General General: Alert and oriented X 3, No acute distress - HEENT HEENT: Moist mucous membranes - Neck Neck: Supple, no meningeal sign - Cardiac Cardiac: RRR - Respiratory Respiratory: No respiratory distress, Clear bilaterally - Abdomen Abdomen: Soft, Non tender - Derm Derm: Warm and dry - Neuro Neuro: Alert and oriented X 3 - Psych Psych: Normal mood, Normal affect - Free text exam Free text exam: 58-year-old female with a dermatomal rash that starts around T8 on the left side of the spine and travels towards the left breast. Small vesicles present. Erythema present. Results - Vitals Vitals: Vital Signs - 24 hr 02/28/24 02/28/24 17:41 20:49 Temperature 36.5 C 36.8 C Heart Rate 100 84 Respiratory 18 16 Rate Blood Pressure 132/85 H 128/67 O2 Saturation 96 98 Oxygen O2 Source Room air PD Medical Decision Making - ED course Complexity details: reviewed results, re-evaluated patient, considered differential, d/w patient ED course: 58-year-old female with a left-sided dermatomal rash consistent with shingles. Will place on valacyclovir and prednisone. We will have her follow-up with her doctor for further care. No evidence of secondary infection. No fevers. Patient is well-appearing, nontoxic. Patient counseled regarding signs and symptoms for which I believe and urgent re-evaluation would be necessary. Patient with good understanding of and agreement to plan and is comfortable going home at this time This document was made in part using voice recognition software. While efforts are made to proofread this document, sound alike and grammatical errors may occur. Departure - Departure Disposition: Home, Self Care Clinical Impression: Shingles Qualifiers: Herpes zoster complications: without complications Qualified Code(s): B02.9 - Zoster without complications Condition: Good Instructions: ED Shingles Follow-Up: Joanne Pace ARNP [Primary Care Provider] - Within 1 week Prescriptions: predniSONE [Deltasone] 10 mg PO [id number] #42 tab HYDROcod/ACETAM 5/325 [[place] 5/325] 1 - 2 ea PO Q6H PRN #10 tablet PRN Reason: Pain Valacyclovir HCl [Valtrex] 1,000 mg PO TID #21 tablet Comments: Your prescriptions were sent to [facility]. Please use the medications as prescribed. Please follow-up with your doctor for further care. As we discussed your rash is consistent with shingles today. Forms: PCP List Discharge Date/Time: 02/28/24 20:49
[2024-02-28] MEDS: predniSONE 20 MG TABLET PO STA (20:44)
[2024-02-28] MEDS: valACYclovir 500 MG TABLET PO STA (20:44)
[2024-02-28] MEDS: IBUPROFEN 800 MG TABLET PO STA (20:44)
[2024-02-28 20:54] VITALS: BP 128/67; O2SAT 98
== END 2024-02-28 20:49 | disposition home or self-care (01) ==
LOC: ED 17:34
DX: B02.9 Zoster without complications (principal); Z87.891 Personal history of nicotine dependence
CPT/HCPCS: 99283; A9270; J7512